=== PATIENT | male | born 1940 | race Caucasian/White ===

== ENCOUNTER 2020-08-07 12:47 | Outpatient (REF) | payer SELFPAY | END 2020-08-07 12:48 | disposition home or self-care (01) | LOC: HO.HAP 12:47 | PROVIDERS: PCP Internal Medicine; Referring Provider Internal Medicine; Visit Provider Internal Medicine | DX: Z13.89 Encounter for screening for other disorder (principal) ==

== ENCOUNTER 2021-01-18 12:01 | Outpatient (REF) | payer SELFPAY | END 2021-01-18 12:02 | disposition home or self-care (01) | LOC: HO.HAP 12:01 | PROVIDERS: Visit Provider Internal Medicine | DX: Z46.1 Encounter for fitting and adjustment of hearing aid (principal); H90.3 Sensorineural hearing loss, bilateral | CPT/HCPCS: 99499; V5299 ==

== ENCOUNTER 2021-05-17 08:28 | Outpatient (REF) | payer MEDICARE, SELFPAY ==
--- NOTE | 2021-05-20 13:23 | MHC.AU.AHA ---
Adult Audiological Evaluation Date of Visit: 05/17/21 Race Car Driver Used: Not Applicable Reason for Appointment: Audiologic re-evaluation due to increasing difficulty hearing and understanding speech. Previous Hearing Test Results: 03/30/2020 [facility] Bilateral mild dropping to profound mixed hearing loss with the left ear being poorer than the right in the high frequencies. Speech understanding, right ear - 76% at 80 dB HL left ear - 40% at 80 dB HL Medical History: Medical History: Prostate Cancer, High Blood Pressure, History of Transient Ischemic Attacks (TIA), High Cholesterol, Chronic Back Pain Medication List: Ezetimibe (Zetia), Atorvastatin, Bicalutamide, Clopidogrel (Plavix), Donepezil, Escitalopram, Flonase, Gabapentin, Lisinopril, Melatonin, Memantine, Omeprazole, Toviaz, Tramadol, Typenol, Vitamin C, Vitamin Shiv Mag Zinc, Vitamin D3 Hearing Instrument History- Right Ear: Cpht: Spry Model: Ritz & Wolf Camera & Image V 90-SP Serial Number: [id number] Battery Size: 13 Repair Warranty: 07/14/2019 Dispensed By: [facility] Date of Fittin04/24/2016 Hearing Instrument History- Left Ear: Cpht: Spry Model: Ritz & Wolf Camera & Image V 90-SP Serial Number: [id number] Battery Size: 13 Warranty: 07/14/2019 Dispensed By: [facility] Date of Fittin04/24/2016 Otoscopy: Right Ear: Unremarkable Left Ear: Unremarkable Tympanometry: Not performed at today's visit Hearing Evaluation: Transducer(s) Used: Circumaural Headphones, Bone Conduction Method: Conventional Audiometry Stimuli Used: Pure Tones Right Ear: Description of Hearing: Moderate dropping to profound mixed hearing loss. Left ear is 10-15 dB poorer than right at 1500, 2000, and 4000 Hz Left Ear: Description of Hearing: Mild dropping to profound mixed hearing loss. Speech Recognition Threshold (SRT): Method Used: Not performed at today's visit. Word Discrimination: Method: Recorded Lists Word Lists Used: NU-6 Right Ear: 50 dB HL at 90 dB HL Left Ear: 36% at 90 dB HL 40% at 95 dB HL Most Comfortable Level (MCL): Right Ear: 90 dB HL Left Ear: 90 dB HL Comparison: Compared to most recent evaluation: Overall thresholds at 3037-4346 Hz have decreased 5-15 dB for both ears with right ear speech discrimination ability decreasing compared to 2020 results. Recommendations: Audiological re-evaluation in one year. Will send a reminder card. Hearing aid maintenance performed today. Hearing aid(s) reprogrammed with updated test results. Please schedule an appointment if further hearing aid adjustments are needed. Diagnosis: Primary Diagnosis: H90.3 Bilateral Sensorineural Hearing Loss Services Performed: Comprehensive Audiological Evaluation (CPT 09826) Signature: Provider: Meredith Vargas, CCC-A
== END 2021-05-17 08:29 | disposition home or self-care (01) ==
LOC: HO.SH 08:28
PROVIDERS: Visit Provider Internal Medicine
DX: H90.3 Sensorineural hearing loss, bilateral (principal)
CPT/HCPCS: 92557

== ENCOUNTER 2021-06-10 09:24 | Outpatient (REF) | payer SELFPAY | END 2021-06-10 09:25 | disposition home or self-care (01) | LOC: HO.HAP 09:24 | PROVIDERS: Visit Provider Internal Medicine | DX: Z13.89 Encounter for screening for other disorder (principal) ==

== ENCOUNTER 2021-08-26 08:22 | Outpatient (REF) | payer SELFPAY | END 2021-08-26 08:23 | disposition home or self-care (01) | LOC: HO.HAP 08:22 | PROVIDERS: Visit Provider Internal Medicine | DX: Z13.89 Encounter for screening for other disorder (principal) ==

== ENCOUNTER 2021-09-26 11:15 | Outpatient (REF) | payer SELFPAY ==
--- NOTE | 2021-09-26 13:52 | MHC.AU.HAS ---
Hearing Aid Evaluation Date of Visit: 09/26/21 Historical Information: Description of Hearing: Asymmetric mild/moderate low frequency, dropping to profound high frequency sensorineural hearing loss with the left ear being poorer than the right. Current personal amplification information, if applicable: 2016 Binaural Phonak Jackeline V 90-SP BTE with standard earmolds Summary: Patient wants to obtain new hearing aids. Wants to try in-the-ear style due to problems with them falling out of his ears when wearing face mask. Hearing Aid Prescription: Based on the individual?s shared listening needs, communication environments, dexterity, desire for connectivity, and personal preferences, the following prescription for amplification has been made: Right ear: Check Cashier: Angstro Model: Evolv AI 2400 ITE-R Battery Size: Rechargeable Color: [place] Mesmerist: 130/70 Left ear: Left ear prescription to be same as Right Hearing Aid above: Check Cashier: Aliza Model: Evolv AI 2400 ITE-R Battery Size: Rechargeable Color: [place] Mesmerist: 130/70 Plan of Care: Patient wishes to purchase hearing aids as prescribed Action Taken/Action Needed: Earmold Impressions Taken Medical Clearance to be requested from PCP/ENT Hearing Instrument Fitting to be scheduled when materials arrive Primary Diagnosis: H90.3 Bilateral Sensorineural Hearing Loss Signature: Provider: Meredith Vargas, VU-A
--- NOTE | 2021-09-26 13:54 | MHC.AU.MED ---
Medical Clearance for Hearing Instrumentation Date: 09/26/21 Patient Name: Reynaldo Momin Date of : 1940 Primary Care Provider: Referring Provider: Primitivo Lee MD We have seen your patient on 09/26/21 and have determined that they are a candidate for amplification (See accompanying report). Specifically, they would benefit from: Hearing aid use in both ears There is a statute that addresses Medical Evaluation Requirements prior to fitting a patient with a hearing aid. According to [place] statute 265 CMR:6.03(1), (a) General. Except as provided in 265 CMR 6.03(1)(b), a inspector subassemblies shall not sell a hearing aid unless the prospective user has presented to the inspector subassemblies a written statement signed by a licensed physician that states that the patient's hearing loss has been medically evaluated and the patient may be considered a candidate for a hearing aid. The medical evaluation must have taken place within the preceding six months. Please note: Due to the [place] Statute referenced above, we cannot accept a signature other than that of a licensed physician. WHITE SIDEWALL TIRE BUFFER and PA signatures cannot be accepted. I am in agreement with the above recommendation. There is no medical contraindication for hearing instrumentation. Physician Signature Date Physician Name (Printed)
== END 2021-09-26 11:16 | disposition home or self-care (01) ==
LOC: HO.SH 11:15
PROVIDERS: Visit Provider Internal Medicine
DX: Z46.1 Encounter for fitting and adjustment of hearing aid (principal); H90.3 Sensorineural hearing loss, bilateral
CPT/HCPCS: 92591

== ENCOUNTER 2021-10-04 09:43 | Outpatient (REF) | payer SELFPAY | END 2021-10-04 09:44 | disposition home or self-care (01) | LOC: HO.HAP 09:43 | PROVIDERS: Visit Provider Internal Medicine | DX: Z46.1 Encounter for fitting and adjustment of hearing aid (principal); H90.3 Sensorineural hearing loss, bilateral | CPT/HCPCS: V5260; V5299 ==

== ENCOUNTER 2021-10-07 12:24 | Outpatient (REF) | payer SELFPAY | END 2021-10-07 12:25 | disposition home or self-care (01) | LOC: HO.HAP 12:24 | PROVIDERS: Visit Provider Internal Medicine | DX: Z13.89 Encounter for screening for other disorder (principal) ==

== ENCOUNTER 2021-10-11 12:12 | Outpatient (REF) | payer SELFPAY | END 2021-10-11 12:13 | disposition home or self-care (01) | LOC: HO.HAP 12:12 | PROVIDERS: Visit Provider Internal Medicine | DX: Z13.89 Encounter for screening for other disorder (principal) ==

== ENCOUNTER 2021-10-15 10:47 | Outpatient (REF) | payer SELFPAY | END 2021-10-15 10:48 | disposition home or self-care (01) | LOC: HO.HAP 10:47 | PROVIDERS: Visit Provider Internal Medicine | DX: Z13.89 Encounter for screening for other disorder (principal) ==

== ENCOUNTER 2021-10-28 12:25 | Outpatient (REF) | payer SELFPAY | END 2021-10-28 12:26 | disposition home or self-care (01) | LOC: HO.HAP 12:25 | PROVIDERS: Visit Provider Internal Medicine | DX: Z13.89 Encounter for screening for other disorder (principal) ==

== ENCOUNTER 2021-10-31 14:03 | Outpatient (REF) | payer SELFPAY ==
--- NOTE | 2021-10-31 14:14 | MHC.AU.HFU ---
Hearing Instrument Follow-Up- Binaural Date of Visit: 10/31/21 Right Ear: Technology Officer: Aliza Model: Evolv AI 2400 ITE-R Serial Number: [id number] Repair Warranty: 10/28/2024 Loss and Damage Warranty: 10/28/2024 Battery Size: Rechargeable Color: [place] Screen Printing Loader Unloader: 130/70 Type of Wax Guard: Hear Clear Dispensed By: [facility] Date of Fittin10/04/2021 Left Ear: Technology Officer: Aliza Model: Evolv AI 2400 ITE-R Serial Number: [id number] Repair Warranty: 10/28/2024 Loss and Damage Warranty: 10/28/2024 Battery Size: Rechargeable Color: [place] Screen Printing Loader Unloader: 130/70 Type of Wax Guard: Hear Clear Dispensed By: [facility] Date of Fittin10/04/2021 Follow-Up Summary: TRIAL PERIOD EXTENDED TO 01/28/2022 (reference number [id number])PER JOAN IN AUDIOLOGY Patient reports continued feedback from both aids and he consistently needs to increase the volume 2-3 steps since seen on 10/28/21. Spoke with Joan in [facility] regarding the problem. She recommends taking new as long as possible impression. Will make both aids have one pressure step back vent, increase length of canals, and increase aperture areas. Reference #[id number] Recommendations:Schedule appointment when in - PLAN TO RUN REAL EAR MEASUREMENTS AGAIN WITH REMAKE Diagnosis Code(s): Primary Diagnosis: H90.3 Bilateral Sensorineural Hearing Loss Signature: Provider: Meredith Vargas, [facility]
== END 2021-10-31 14:04 | disposition home or self-care (01) ==
LOC: HO.HAP 14:03
PROVIDERS: Visit Provider Internal Medicine
DX: Z13.89 Encounter for screening for other disorder (principal)

== ENCOUNTER 2021-11-14 10:52 | Outpatient (REF) | payer SELFPAY ==
--- NOTE | 2021-11-14 13:23 | MHC.AU.HFU ---
Hearing Instrument Follow-Up- Binaural Date of Visit: 11/14/21 Right Ear: Digital Color Press Operator: Aliza Model: Evolv AI 2400 ITE-R Serial Number: [id number] Repair Warranty: 10/28/2024 Battery Size: Rechargeable Color: [place] [facility] Nurse: 130/70 Type of Wax Guard: Hear Clear Dispensed By: [facility] Date of Fittin10/04/2021 Left Ear: Digital Color Press Operator: Aliza Model: Evolv AI 2400 ITE-R Serial Number: [id number] Repair Warranty: 10/28/2024 Battery Size: Rechargeable Color: [place] [facility] Nurse: 130/70 Type of Wax Guard: Hear Clear Dispensed By: [facility] Date of Fittin10/04/2021 Follow-Up Summary: Fit the right and left remake of ITE-R aids. Re-ran feedback test with significant feedback continuing. Blocked the pressure vents with no improvement and attempted re-programming. Only way to reduce feedback caused too much reduction in gain. Discussed options. RETURNED THE ITE-R AIDS FOR CREDIT Recommendations: Ordering binaural Aliza Evolv AI 2400 MEHREEN-R with canal lock ultra power integrated earmolds and #3 70 gain receivers. Rich Do. Faxed order to use scans on file. SCHEDULE NEW HEARING AID FITTING APPOINTMENT WHEN IN. Diagnosis Code(s): Primary Diagnosis: H90.3 Bilateral Sensorineural Hearing Loss Signature:Provider: Meredith Vargas, [facility]
== END 2021-11-14 10:53 | disposition home or self-care (01) ==
LOC: HO.HAP 10:52
PROVIDERS: Visit Provider Internal Medicine
DX: Z13.89 Encounter for screening for other disorder (principal)

== ENCOUNTER 2021-11-29 11:35 | Outpatient (REF) | payer SELFPAY ==
--- NOTE | 2021-12-02 07:35 | MHC.AU.HFA ---
Hearing Instrument Fitting- Adult- Binaural Date of Visit: 11/29/21 Hearing Instruments Dispensed: Right Ear:Media Assistant: Aliza Model: Evolv AI 2400 MEHREEN-R Serial Number: [id number] Repair Warranty: 02/18/2025 Loss and Damage Warranty: 02/18/2025 Battery Size: Rechargeable Color: Rich Silver Timber Skidder: #3 Type of Mold: Aliza Absolute Power Canal Lock #[id number] Type of Wax Guard: Hear Clear Left Ear: Media Assistant: Aliza Model: Evolv AI 2400 MEHREEN-R Serial Number: [id number] Repair Warranty: 02/18/2025 Loss and Damage Warranty: 02/18/2025 Battery Size: Rechargeable Color: [place] Silver Timber Skidder: #3 Type of Mold: Aliza Absolute Power Canal Lock #[id number] Type of Wax Guard: Hear Clear Summary of Fitting: Fit MEHREEN-R with custom AP canal lock molds due to significant feedback problems with ITE-R despite several remakes with new impressions. Ran feedback test and Real Ear measurements. Aids needed to be increased in gain quite a bit for patient comfort. Continues to get feedback, which was resolved when molds pushed into canal. Called Aliza, will change to skeleton lock molds. Patient wants to use the aids in the meantime. Aids already paid for 2021 Recommendations:Hearing instrument care and maintenance were discussed and practiced.See handouts for care/use instructions and battery information. Recommendations (Other): Schedule appointment when skeleton lock AP molds are received. NEED TO RETURN THE CANAL LOCK MOLDS FOR CREDIT AFTER FITTING. Diagnosis Code(s): Primary Diagnosis: H90.3 Bilateral Sensorineural Hearing Loss Services Performed:NDIAYE Non-Quantity Charges: Signature:Provider: Verna Vargas, [facility]
== END 2021-11-29 11:36 | disposition home or self-care (01) ==
LOC: HO.HAP 11:35
PROVIDERS: Visit Provider Internal Medicine
DX: Z13.89 Encounter for screening for other disorder (principal)

== ENCOUNTER 2021-12-13 12:12 | Outpatient (REF) | payer SELFPAY ==
--- NOTE | 2021-12-16 08:49 | MHC.AU.HFU ---
Hearing Instrument Follow-Up- Binaural Date of Visit: 12/13/21 Right Ear: Pressure Test Operator: Aliza Model: Evolv AI 2400 MEHREEN-R Serial Number: [id number] Repair Warranty: 02/18/2025 Loss and Damage Warranty: 02/18/2025 Battery Size: Rechargeable Color: Rich Silver Marking Machine Tender: #3 70 gain Type of Mold: Aliza Absolute Power Skeleton Lock #[id number] warranty 01/04/2024 Type of Wax Guard: Hear Clear Dispensed By: [facility] Date of Fittin10/04/2021 Left Ear: Pressure Test Operator: Aliza Model: Evolv AI 2400 MERHEEN-R Serial Number: [id number] Repair Warranty: 02/18/2025 Loss and Damage Warranty: 02/18/2025 Battery Size: Rechargeable Color: Rich Silver Marking Machine Tender: #3 70 gain Type of Mold: Aliza Absolute Power skeleton Lock #[id number] warranty 01/04/2024 Type of Wax Guard: Hear Clear Dispensed By: [facility] Date of Fittin10/04/2021 Follow-Up Summary: Fir the new skeleton AP integrated earmolds, re-ran feedback test with improved results. Used speech mapping to reduce MPO and loud at 1-3 kHz due to some feedback with improvement. Patient reports comfortable fit while in office and the little feedback only when molds are covered was not bothersome. Returned the canal lock AP receivers for credit. Recommendations: Hearing instrument follow-up or maintenance as needed. Please contact our clinic with any questions or concerns. Diagnosis Code(s):Primary Diagnosis: H90.3 Bilateral Sensorineural Hearing Loss Services Performed:NDIAYE Non-Quantity Charges: HANC: NonBillable Event Signature: Provider: Meredith Vargas, CCC-A
== END 2021-12-13 12:13 | disposition home or self-care (01) ==
LOC: HO.HAP 12:12
PROVIDERS: Visit Provider Internal Medicine
DX: Z13.89 Encounter for screening for other disorder (principal)

== ENCOUNTER 2021-12-20 10:25 | Outpatient (REF) | payer SELFPAY | END 2021-12-20 10:26 | disposition home or self-care (01) | LOC: HO.HAP 10:25 | PROVIDERS: Visit Provider Internal Medicine | DX: Z13.89 Encounter for screening for other disorder (principal) ==

== ENCOUNTER 2021-12-30 12:52 | Outpatient (REF) | payer SELFPAY | END 2021-12-30 12:53 | disposition home or self-care (01) | LOC: HO.HAP 12:52 | PROVIDERS: Visit Provider Internal Medicine | DX: Z13.89 Encounter for screening for other disorder (principal) ==

== ENCOUNTER 2022-01-01 14:40 | Outpatient (REF) | payer SELFPAY ==
--- NOTE | 2022-01-15 14:30 | MHC.AU.HFU ---
Hearing Instrument Follow-Up- Binaural Date of Visit: 01/15/22 Right Ear: Networking Engineer: The Farmery Model: Evolv AI 2400 MEHREEN-R Serial Number: [id number] Repair Warranty: 02/18/2025 Loss and Damage Warranty: 02/18/2025 Battery Size: Rechargeable Color: Rich Silver Customs Inspector: #3 70 gain Type of Mold: The Farmery Absolute Power Skeleton Lock #[id number] warranty 01/04/2024 Type of Wax Guard: Hear Clear Dispensed By: [facility] Date of Fittin10/04/2021 Left Ear: Networking Engineer: The Farmery Model: Evolv AI 2400 MEHREEN-R Serial Number: [id number] Repair Warranty: 02/18/2025 Loss and Damage Warranty: 02/18/2025 Battery Size: Rechargeable Color: Rich Silver Customs Inspector: #3 70 gain Type of Mold: The Farmery Absolute Power skeleton Lock #[id number] warranty 01/04/2024 Type of Wax Guard: Hear Clear Dispensed By: [facility] Date of Fittin10/04/2021 Follow-Up Summary: Received the remakes from [facility] [place] on 01/14/2022. Vents were not made as requested. Contacted patient to discuss how he was doing with the Phonak Jackeline P 90-UP Demo aids. He said he is doing well, with no feedback at all and he is hearing more clearly compared to any of the Aliza products tried. Sent the Future Fleetv AI 2400 MEHREEN-R aids and AP molds for credit. Ordered the Phonak Jackeline aids. WILL SCHEDULE HAF WITH PATIENT'S CURRENT MOLDS WHEN IN. NEED TO TAKE NEW IMPRESSIONS FOR NEW SOFT SKELETON STANDARD MOLDS AT HAF APPOINTMENT NEED TO REFUND PATIENT $700.00 PHONAK AIDS ARE WITH BATTERY Signature:Provider: Meredith Vargas, CCC-A
== END 2022-01-01 14:41 | disposition home or self-care (01) ==
LOC: HO.HAP 14:40
PROVIDERS: Visit Provider Internal Medicine
DX: Z13.89 Encounter for screening for other disorder (principal)

== ENCOUNTER 2022-01-24 11:28 | Outpatient (REF) | payer SELFPAY ==
--- NOTE | 2022-01-24 12:40 | MHC.AU.HFU ---
Hearing Instrument Follow-Up- Binaural Date of Visit: 01/24/22 Right Ear: Ammonia Nitrate Operator: Phonak Model: Jackeline P 90-UP Serial Number: [id number] Repair Warranty: 04/14/2025 Loss and Damage Warranty: 04/14/2025 Battery Size: 675 Color: Silver Pr[place] Tubing: #13T double bend Type of Mold: Skeleton Dispensed By: [facility] Date of Fittin01/24/2022 Left Ear: Ammonia Nitrate Operator: Phonak Model: Jackeline P 90-UP Serial Number: [id number] Repair Warranty: 04/14/2025 Loss and Damage Warranty: 04/14/2025 Battery Size: 675 Color: Silver [place] TubinT double bend Type of Mold: Skeleton Lock Dispensed By: [facility] Date of Fittin01/24/2022 Follow-Up Summary: Fit patient with new Jackeline UP BTE as he is not experiencing feedback with the DEMO aids. Picked up the last settings from DEMO aids he has been using and placed patient's old canal lock mold on the aids. Took new impressions of both ears without complication for new Skeleton molds. Submitted REFUND REQUEST for $700.00 as new aids are NOT rechargeable. Recommendations: Schedule 1/2 TO 1 hour appointment when earmolds are received. NEED TO RUN REAL EAR MEASUREMENTS AND FINE TUNING WITH NEW MOLDS. Diagnosis Code(s):Primary Diagnosis: H90.3 Bilateral Sensorineural Hearing Loss Signature:Provider: Meredith Vargas, [facility]
== END 2022-01-24 11:29 | disposition home or self-care (01) ==
LOC: HO.HAP 11:28
PROVIDERS: Visit Provider Internal Medicine
DX: Z13.89 Encounter for screening for other disorder (principal)

== ENCOUNTER 2022-02-19 12:17 | Outpatient (REF) | payer SELFPAY | END 2022-02-19 12:18 | disposition home or self-care (01) | LOC: HO.HAP 12:17 | PROVIDERS: Visit Provider Internal Medicine | DX: Z13.89 Encounter for screening for other disorder (principal) ==

== ENCOUNTER 2022-05-29 09:56 | Outpatient (REF) | payer SELFPAY | END 2022-05-29 09:57 | disposition home or self-care (01) | LOC: HO.HAP 09:56 | PROVIDERS: Visit Provider Internal Medicine | DX: Z13.89 Encounter for screening for other disorder (principal) ==

== ENCOUNTER 2022-07-07 09:21 | Outpatient (REF) | payer SELFPAY | END 2022-07-07 09:22 | disposition home or self-care (01) | LOC: HO.HAP 09:21 | PROVIDERS: Visit Provider Internal Medicine | DX: Z13.89 Encounter for screening for other disorder (principal) ==

== ENCOUNTER 2022-07-31 09:29 | Outpatient (REF) | payer SELFPAY | END 2022-07-31 09:30 | disposition home or self-care (01) | LOC: HO.HAP 09:29 | PROVIDERS: Visit Provider Internal Medicine | DX: Z13.89 Encounter for screening for other disorder (principal) ==

== ENCOUNTER 2022-08-11 15:56 | Outpatient (REF) | payer SELFPAY | END 2022-08-11 15:57 | disposition home or self-care (01) | LOC: HO.HAP 15:56 | PROVIDERS: Visit Provider Internal Medicine | DX: Z46.1 Encounter for fitting and adjustment of hearing aid (principal); H90.3 Sensorineural hearing loss, bilateral | CPT/HCPCS: V5264 ==

== ENCOUNTER 2022-09-23 15:32 | Outpatient (REF) | payer SELFPAY ==
--- NOTE | 2022-09-23 15:52 | MHC.AU.HFU ---
Hearing Instrument Follow-Up- Binaural Date of Visit: 09/23/22 Right Ear: Phonak Jackeline P 90-UP Silver Prado Serial #[id number] Repair Warranty: 04/14/2025 Loss and Damage Warranty: 04/14/2025 Service Plan: 01/24/2022 Battery Size: 675 Tubing: #13T double bend Type of Mold: [place] Skeleton Dispensed By: [facility] Date of Fittin01/24/2022 Left Ear: Phonak Jackeline P 90-UP Silver Prado Serial #[id number] Repair Warranty: 04/14/2025 Loss and Damage Warranty: 04/14/2025 Service Plan: 01/24/2022 Battery Size: 675 TubinT double bend Type of Mold: Microsonic Skeleton Lock Remake warranty 02/04/2023 Dispensed By: [facility] Date of Fittin01/24/2022 Follow-Up Summary: The patient was seen today for a right ear mold tubing change as the tubing was cracked. Tubing changed, ear mold and hearing aid cleaned. Listening check reveals clear sound. The patient requested I look in his right ear as he feels that ear is blocked. Otoscopy reveals non-occluding cerumen in the right ear canal. He is scheduled to see Dr. Aggarwal (ENT) on 10/01/22. He reported good sound and fit with the right aid. Additional follow-up as needed. No charge- in warranty. Diagnosis Code(s): Primary Diagnosis: H90.6 Mixed Hearing Loss, Bilateral Signature: Provider: Meredith Braswell, [facility]
== END 2022-09-23 15:33 | disposition home or self-care (01) ==
LOC: HO.HAP 15:32
PROVIDERS: Visit Provider Internal Medicine
DX: Z13.89 Encounter for screening for other disorder (principal)

== ENCOUNTER 2023-01-12 12:48 | Outpatient (REF) | payer SELFPAY | END 2023-01-12 12:49 | disposition home or self-care (01) | LOC: HO.HAP 12:48 | PROVIDERS: Visit Provider Internal Medicine | DX: Z13.89 Encounter for screening for other disorder (principal) ==

== ENCOUNTER 2023-01-23 14:45 | Outpatient (REF) | payer SELFPAY | END 2023-01-23 14:46 | disposition home or self-care (01) | LOC: HO.HAP 14:45 | PROVIDERS: Visit Provider Internal Medicine | DX: Z13.89 Encounter for screening for other disorder (principal) ==

== ENCOUNTER 2023-05-12 14:35 | Outpatient (REF) | payer SELFPAY ==
--- NOTE | 2023-05-12 15:18 | MHC.AU.HA3 ---
Hearing Instrument Follow-Up- Binaural Date of Visit: 05/12/23 Right Ear: Geronimo, Model, Color, Serial Number: Andrea Viveros P 90-UP Silver Prado Serial #[id number] Hot Patcher Repair Warranty: 04/14/2025 Hot Patcher Loss and Damage Warranty: 04/14/2025 [facility] Service Plan: 01/24/2025 Battery Size: 675 Earmold/Dome/CShell/SlimTip:[place] Skeleton Dispensed By: [facility] Date of Fittin01/24/2022 Left Ear: Geronimo, Model, Color, Serial Number: Andrea Viveros P 90-UP Silver Prado Serial #[id number] Hot Patcher Repair Warranty: 04/14/2025 Hot Patcher Loss and Damage Warranty: 04/14/2025 [facility] Service Plan: 01/24/2025 Battery Size: 675 Earmold/Dome/CShell/SlimTip: Microsonic Skeleton Lock Remake warranty 02/04/2023 Dispensed By: [facility] Date of Fittin01/24/2022 Follow-Up Summary: Reynaldo reported that his left hearing aid has been intermittent. It only seems to work when he pushes on the ear mold. Upon inspection, moisture build up noted in tubing. Cleaned both hearing aids and ear molds. Ran through dehumidifier. Replaced both tubes. A listening check demonstrated that the hearing aids are in good working order. Reynaldo noticed an immediate improvement in sound quality following the tubing change. He also requested that the left hearing aid be turned down as he often gets feedback while watching television with his headphones. Explained decreasing volume will impact overall/everyday sound quality. Decreased highest frequencies slightly. Reynaldo did not notice significant impact on sound quality in office and will trial new settings at home with his headphones to determine the effect on the feedback. If feedback persists with headphone use, may need to consider adding an additional manual program for use with headphones that decreases overall volume more so than everyday program. Recommendations: Hearing instrument follow-up or maintenance as needed. Please contact our clinic with any questions or concerns. Patient will call if problems persist. Diagnosis Code(s): Primary Diagnosis: H90.3 Bilateral Sensorineural Hearing Loss Signature: Provider: Nunu Davis, [facility]
== END 2023-05-12 14:36 | disposition home or self-care (01) ==
LOC: HO.HAP 14:35
PROVIDERS: Visit Provider Internal Medicine
DX: Z13.89 Encounter for screening for other disorder (principal)

== ENCOUNTER 2023-09-14 07:48 | Outpatient (REF) | payer SELFPAY | END 2023-09-14 07:49 | disposition home or self-care (01) | LOC: HO.HAP 07:48 | PROVIDERS: Visit Provider Internal Medicine | DX: Z13.89 Encounter for screening for other disorder (principal) ==

== ENCOUNTER 2023-10-28 12:51 | Outpatient (AMB) | payer MEDICARE, OTHER, SELFPAY ==
--- NOTE | 2023-10-28 13:03 | A.SPINEOV_ITS ---
Intake Intake Visit Reasons: lower back pain Intake Note: Mr. Momin is here today c/o low back pain. Purchase Analyst Required: No Allergies No Known Allergies Allergy (Verified 10/28/23 13:03) Assessment & Plan Assessment & Plan (1) Scoliosis of lumbar region due to degenerative disease of spine in adult: Code(s): M41.56 - Other secondary scoliosis, lumbar region Plan Dear colleague Thank you for referring Reynaldo Momin to the office today with a chief complaint of right-sided back pain radiating to his knee. HPI: This 83-year-old male is suffering from pain radiating from his right side of the back to his groin and knee. The pain has been present for 10-15 years and has slowly progressed over the years. Takes tramadol 8 tablets a day to suppress the pain. The left side is unaffected. He saw Dr. Chowdary in the past that gave him an injection. No surgery was offered. The following conservative treatment options were tried without success antiinflammatories, tylenol, physician guided home exercise plan, and physical therapy cortisone shots. PMH: TIA many years ago hypercholesterolemia, hypertension, GERD, prostate cancer Medications: Atorvastatin, Plavix, dullness benzyl, duloxetine, Zetia, Flonase, gabapentin, lisinopril, omeprazole, tramadol, Tylenol, multivitamins Allergies: NKDA Social history: . Retired Physical Exam: Pleasant male. He walks in a flexed position. On inspection there is a degenerative scoliosis with a curvature towards the right side. No neurological deficits Radiological Studies: MRI of the lumbar spine done at [facility] shows a lumbar degenerative scoliosis that has progressed compared to an MRI of 2019. The degenerative scoliosis causes right L4 and L5 nerve root compression. Impression/Plan: This 83-year-old male is most likely suffering from a right L4 radiculopathy. I will refer him for a right L4 diagnostic block to confirm the diagnosis. If this comes back positive then I will offer him an L4 foraminotomy and L3-4 instrumentation unilateral. He will follow up with me after the injection is done. Thank you for allowing me to participate in your patients care. total time spent was 50 minutes in counseling ,coordination of plan, personal review of imaging, surgical decision making and subsequent plan Mac Newman MD, PhD Spine Fellowship Trained Neurosurgeon Director, [facility] Orders: Orders XR lumbar spine 4V min Today M41.56 - Other secondary scoliosis, lumbar region Referrals Pain Management Referral M41.56 - Other secondary scoliosis, lumbar region Coding Level of Care Code New Pt Level 4 (34604) Diagnoses Scoliosis of lumbar region due to degenerative disease of spine in adult M41.56
== END 2023-10-28 14:10 | disposition home or self-care (01) ==
PROVIDERS: PCP Internal Medicine; Visit Provider Neurological Surgery
DX: M41.56 Other secondary scoliosis, lumbar region (principal)
CPT/HCPCS: 99204

== ENCOUNTER 2023-10-28 12:51 | Outpatient (REF) | payer MEDICARE, OTHER, SELFPAY ==
--- NOTE | ~2023-10-28 | XR_ITS ---
EXAMINATION: XR LUMBOSACRAL SPINE WITH LATERAL FLEXION AND EXTENSION CLINICAL INFORMATION: Other secondary scoliosis, lumbar region COMPARISON: None available. TECHNIQUE: AP, lateral view and lateral flexion and extension views of the lumbar spine. FINDINGS: The bones are mildly demineralized. There is curve of the lumbar spine, convex left. There are 5 nonrib-bearing lumbar-type vertebral bodies. There is multilevel degenerative facet joint disease. There is marked anterior marginal osteophyte formation at L1-L2 and off the superior endplate of L1. There is retrolisthesis of L2 with respect to L3 and L4 with respect to L5. Patient demonstrates limited flexion and extension. There is no change in alignment with flexion and extension. There is calcification of the abdominal aorta without evidence of aneurysmal dilatation. XR/XR lumbar spine 4V min IMPRESSION: 1. Curvature of the lumbar spine, convex left. 2. 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 3. Multilevel retrolisthesis. 4. No change in alignment with flexion and extension.
== END 2023-10-28 12:52 | disposition home or self-care (01) ==
LOC: HO.HOSX 12:51
PROVIDERS: PCP Internal Medicine; Visit Provider Neurological Surgery
DX: M51.36 Other intervertebral disc degeneration, lumbar region (principal); M41.56 Other secondary scoliosis, lumbar region
CPT/HCPCS: 72110; 99202

== ENCOUNTER 2023-11-04 10:17 | Outpatient (AMB) | payer MEDICARE, OTHER, SELFPAY ==
--- NOTE | 2023-11-04 10:18 | A.OFFVIS_ITS ---
Intake Vital Signs 11/04/23 10:23 Height 5 ft 6 in Weight 172 lb BMI 27.8 BP 130/70 Blood Pressure Location Lt brachial Position Sitting Respiration 12 Pulse 80 Pulse Source Pulse Oximeter Intake Visit Reasons: scoliosis, lumbar region Allergies No Known Allergies Allergy (Verified 11/04/23 10:25) Medication List - Last Reconciled 11/04/23 by Angelika Rob LPN atorvastatin 80 mg PO DAILY clopidogrel mg PO diphth,pertus(acell),tetanus (Boostrix Tdap) mL IM donepezil 10 mg PO DAILY duloxetine 120 mg PO DAILY ezetimibe mg PO fesoterodine ER 8 mg PO DAILY gabapentin mg PO lisinopril mg PO omeprazole 20 mg PO DAILY HPI scoliosis, lumbar region HPI Details 83-year-old male who presents today to t he office for lumbar scoliosis He has been referred by Dr. Newman for consideration of the right L4 diagnostic nerve root block. He complains of radiating pain from the right side of the groin to the knee, which has been going on for 10?15 years and has progressed over the years. He takes eight tramadol tablets a day to help with the pain and has also tried anti-inflammatory drugs, Tylenol, a physician-guided home exercise plan, and PT. He had seen Dr. Chowdary, who had given injections in the past. His pain is described as 8 in the right lower back and 9/10 in intensity, and it improved with tramadol. It is a constant, sharp stabbing sensation. He has exhausted physical therapy, chiropractic manipulation, and transcutaneous electrical nerve stimulation. The Oswestry disability index score is 22. Physical Exam Vital Signs: Last Vital Signs Pulse 80 11/04/23 10:23 Resp 12 11/04/23 10:23 BP 130/70 11/04/23 10:23 BMI result Body Mass Index 27.8 On exam today: Appears afebrile. Alert and oriented. Mood and affect appropriate. Follows and participates in conversation appropriately. Respiratory effort is unlabored. Able to transition from sit to stand unassisted. Ambulates with bilaterally normal heel strike and toe off. Able to stand and walk on toes and heels. Results Reviewed Results Reviewed: XR LUMBOSACRAL SPINE WITH LATERAL FLEXION AND EXTENSION 10/28/23 FINDINGS: The bones are mildly demineralized. There is curve of the lumbar spine, convex left. There are 5 nonrib-bearing lumbar-type vertebral bodies. There is multilevel degenerative facet joint disease. There is marked anterior marginal osteophyte formation at L1-L2 and off the superior endplate of L1. There is retrolisthesis of L2 with respect to L3 and L4 with respect to L5. Patient demonstrates limited flexion and extension. There is no change in alignment with flexion and extension. There is calcification of the abdominal aorta without evidence of aneurysmal dilatation. IMPRESSION: 1. Curvature of the lumbar spine, convex left. 2. 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 3. Multilevel retrolisthesis. 4. No change in alignment with flexion and extension. Assessment & Plan Assessment & Plan (1) Lumbar radiculopathy: Code(s): M54.16 - Radiculopathy, lumbar region Plan We will schedule him for right L4 diagnostic nerve root block. Discussed the risks and benefits of the procedure with the patient in detail. All questions were answered. The patient is on board with the plan. I advised the patient to hold Plavix for 7 days prior to the injection. Justification for interventional therapy: ? Patient with average pain > 6/10 ? Patient has exhausted conservative therapy ? Patient unable to tolerate physical therapy due to pain Scribed for Dr. Beck by Angeles Choe medical data entry clerk, on 11/04/2023. I, Dr. Beck, have personally reviewed and agree with the information entered by the scribe. Coding Level of Care Code New Pt Level 4 (91548) Diagnoses Lumbar radiculopathy M54.16
[2023-11-04 10:23] VITALS: BP 130/70; PULSE 80; RESP 12; BMI 27.8
== END 2023-11-04 11:09 | disposition home or self-care (01) ==
LOC: HO.PMC 10:17
PROVIDERS: PCP Internal Medicine; Visit Provider Internal Medicine
DX: M54.16 Radiculopathy, lumbar region (principal)
CPT/HCPCS: 99204

== ENCOUNTER → 2023-11-04 10:17 | Outpatient (BNVA) | payer MEDICARE, OTHER, SELFPAY | PROVIDERS: PCP Internal Medicine; Visit Provider Internal Medicine | DX: M54.16 Radiculopathy, lumbar region (principal); R10.30 Lower abdominal pain, unspecified; M25.561 Pain in right knee; Z79.899 Other long term (current) drug therapy; Z79.891 Long term (current) use of opiate analgesic | CPT/HCPCS: 99202 ==

== ENCOUNTER 2023-11-19 07:30 | Outpatient (REF) | payer MEDICARE, OTHER, SELFPAY | END 2023-11-19 07:31 | disposition home or self-care (01) | LOC: CF 07:30 | PROVIDERS: Visit Provider Internal Medicine | DX: Z13.89 Encounter for screening for other disorder (principal) ==

== ENCOUNTER 2023-11-26 06:37 | Outpatient (REF) | payer MEDICARE, OTHER, SELFPAY ==
--- NOTE | ~2023-11-26 | FL_ITS ---
EXAMINATION: XR FLUOROSCOPY WITH IMAGES CLINICAL INFORMATION: Right lumbar pain injection. COMPARISON: Lumbar spine radiographs dated 10/28/2023. TECHNIQUE: Fluoroscopy Supervised By: Dr. Jayden Beck. Fluoroscopy Time: 0.5 minutes. Cumulative Dose: 9.28 mGy. DAP: 0.0840 Gycm2. Images: 4. FINDINGS: The submitted images show an injection needle and injected contrast in the vicinity of the right L4-L5 neural foramen. FL/FL guidance in treatment room IMPRESSION: Intraoperative fluoroscopic guidance is provided during right lumbar pain injection. Please see the patient's Operative Report for full procedural details.
== END 2023-11-26 06:38 | disposition home or self-care (01) ==
LOC: CF 06:37
PROVIDERS: Visit Provider Internal Medicine
DX: M54.16 Radiculopathy, lumbar region (principal)
CPT/HCPCS: 64483; Q9967

== ENCOUNTER 2023-11-26 11:08 | Outpatient (AMB) | payer MEDICARE, OTHER, SELFPAY ==
[2023-11-26 11:19] VITALS: BP 128/66; PULSE 68; RESP 18; O2SAT 97; BMI 27.8
--- NOTE | 2023-11-26 11:19 | A.OFFVIS_ITS ---
Intake Vital Signs 11/26/23 11:19 11/26/23 11:19 11/26/23 12:52 Height 5 ft 6 in 5 ft 6 in Weight 172 lb 172 lb BMI 27.8 27.8 BP 128/66 134/66 Blood Pressure Location Lt brachial Lt brachial Position Sitting Sitting Respiration 18 18 Pulse 68 78 Pulse Source Pulse Oximeter Pulse Oximeter Pulse Oximetry (%) 97 96 Oxygen Delivery Method Room Air Room Air Comment Pre-Op Post-Op Intake Visit Reasons: Right Dx L4 SNRB Allergies No Known Allergies Allergy (Verified 11/04/23 10:25) HPI Right Dx L4 SNRB HPI Details Patient presents for scheduled procedure. Denies any recent cough, cold, infection, fever or other significant changes in medical history since last office visit. Physical Exam Vital Signs: Last Vital Signs Pulse 78 11/26/23 12:52 Resp 18 11/26/23 12:52 BP 134/66 11/26/23 12:52 Pulse Ox 96 11/26/23 12:52 Oxygen Delivery Method Room Air 11/26/23 12:52 BMI result Body Mass Index 27.8 Office Procedures Details: Selective nerve root block, right L4 After obtaining written consent, pre-procedure blood pressure and heart rate were stable and recorded in the nursing record. The patient was placed in the prone position on the fluoroscopy table. The lumbosacral area was prepped with chloraprep, allowed to dry and draped in sterile fashion. Using fluoroscopy, the skin overlying our target was anesthetized with 0.5% lidocaine. A 22 gauge 3.5 inch spinal needle was advanced to the safe triangle in the upper pole of the right L4 foramen. No paresthesias were elicited with needle placement and aspiration was negative for blood and CSF. Correct needle position was confirmed with approximately 1 ml contrast dye (Omnipaque 180 mg/ml) injected under real-time fluoroscopy. No evidence of vascular or intrathecal uptake was seen and there was both epidural and perip heral spread of the contrast agent. 0.75 ml containing 1% lidocaine was slowly injected. The needle was flushed and removed. The skin was cleansed and a sterile bandages were applied. The patient tolerated the procedure well and no complications were encountered. Following the procedure the patient's vital signs were stable. The patient was discharged home in good condition with post-procedural instructions. Time Out: Immediately prior to the procedure, the following was verbally confirmed that there is a signed consent form and that the correct patient, planned procedure, site and side are consistent with documentation and that necessary equipment and/or blood products are available prior to the start of the case. Complications: none EBL: <5 cc 65137 - Lumbar/Sacral Procedure code (CPT) selection complete Assessment & Plan Assessment & Plan (1) Lumbar radiculopathy: Code(s): M54.16 - Radiculopathy, lumbar region Plan Patient is status post right L4 selective nerve root block. Patient tolerated procedure well and was discharged home in stable condition with discharge instructions. All questions were answered. We will follow-up via telephone or in clinic to assess response to therapy. A follow-up appointment was made during today's visit. Coding Level of Care Code Procedure Only Diagnoses Lumbar radiculopathy M54.16 CPT Codes Transforaminal Epidural Steroid Inj - TESI 3: 40662 - Lumbar/Sacral ([id number])
[2023-11-26 12:52] VITALS: BP 134/66; PULSE 78; RESP 18; O2SAT 96
== END 2023-11-26 12:53 | disposition home or self-care (01) ==
LOC: HO.PMCPRC 11:08
PROVIDERS: PCP Internal Medicine; Visit Provider Internal Medicine
DX: M54.16 Radiculopathy, lumbar region (principal)
CPT/HCPCS: 64483

== ENCOUNTER 2023-11-30 09:12 | Outpatient (AMB) | payer MEDICARE, OTHER, SELFPAY ==
--- NOTE | 2023-11-30 09:08 | MHC.OFFVIS ---
Intake Intake Visit Reasons: s/p right Dx L4 SNRB Allergies No Known Allergies Allergy (Verified 11/04/23 10:25) HPI s/p right Dx L4 SNRB HPI Details 83-year-old male who presents today via telehealth for a status post right diagnostic L4 SNRB. The patient reports 100% relief of his right sided pain following the procedure. His right-sided pain has still not come back 5 days after a 0.5 cc lidocaine 1% injection. The day of the procedure, he was completely pain-free and did not take any tramadol. Interestingly, he reports a new pain in the left hip and leg, which is bothersome. His left-sided pain is the same as it was on the right side. It is severe in nature and radiates down from the hip to the left knee. He denies having had this pain on the left side in the past. Past procedures 11/26/23: Selective nerve root block, right L4: 100% relief, ongoing. Review of Systems Const All systems reviewed & are unremarkable except as noted in HPI and below Results Reviewed Results Reviewed: No imaging is available for review. Assessment & Plan Assessment & Plan (1) Lumbar radiculopathy: Code(s): M54.16 - Radiculopathy, lumbar region (2) Scoliosis of lumbar region due to degenerative disease of spine in adult: Code(s): M41.56 - Other secondary scoliosis, lumbar region Plan The patient had 100% diagnostic response to the right L4 selective nerve root block. Unfortunately he now has a new left-sided pain that he did not have before. We will schedule him for Left L3 selective nerve root block. Discussed the risks and benefits of the procedure with the patient in detail. All questions were answered. The patient is on board with the plan. I advised the patient to hold Plavix for 7 days prior to the injection. Based on the results of the left-sided diagnostic injection, he will follow-up with spine surgery to reassess his surgical options. Justification for interventional therapy: ? Patient with average pain > 6/10 ? Patient has exhausted conservative therapy ? Patient unable to tolerate physical therapy due to pain . Patient has a good understanding of their pain condition and has appropriate mental and social support Scribed for Dr. Beck by Jose Guadalupe Gerber, medical specialist, on 11/30/2023. I, Dr. Beck, have personally reviewed and agree with the information entered by the scribe. Telehealth Telehealth Location of provider rendering services: practice address Location of patient: address on file Patient Identification confirmed using: Name, : Yes Telehealth method: voice only Patient verbally consented to treatment: Yes Patient verbally consented to billing insurance company: Yes Patient informed of any privacy concerns related to visit: Yes Minutes spent on Phone/Video with Pt.: 6 Coding Level of Care Code Tele Est Pt Level 3 (27592) Diagnoses Lumbar radiculopathy M54.16 Scoliosis of lumbar region due to degenerative disease of spine in adult M41.56
== END 2023-11-30 09:13 | disposition home or self-care (01) ==
LOC: HO.PMC 09:12
PROVIDERS: PCP Internal Medicine; Visit Provider Internal Medicine
DX: M54.16 Radiculopathy, lumbar region (principal); M41.56 Other secondary scoliosis, lumbar region
CPT/HCPCS: 99441

== ENCOUNTER → 2023-11-30 09:12 | Outpatient (BNVA) | payer MEDICARE, OTHER, SELFPAY | PROVIDERS: PCP Internal Medicine; Visit Provider Internal Medicine ==

== ENCOUNTER 2023-12-31 06:21 | Outpatient (REF) | payer MEDICARE, OTHER, SELFPAY ==
--- NOTE | ~2023-12-31 | FL_ITS ---
EXAMINATION: XR FLUOROSCOPY WITH IMAGES CLINICAL INFORMATION: Scoliosis. COMPARISON: None available. TECHNIQUE: Fluoroscopy Supervised By: Dr. Jayden Beck. Fluoroscopy Time: 0.2 minutes. Cumulative Dose: 3.21 mGy. DAP: 0.0174 Gycm2. Images: 2. FINDINGS: Intraoperative fluoroscopy and spot films were performed during a procedure in the OR. [place] are seen overlying the spine with contrast media around the tips. Level cannot be ascertained from the included radiographs. Please see Dr. Jayden Beck's report for complete details. FL/FL guidance in treatment room IMPRESSION: Intraoperative fluoroscopy and spot films were obtained. Please see Dr. Jayden Beck's report for complete details.
== END 2023-12-31 06:22 | disposition home or self-care (01) ==
LOC: CF 06:21
PROVIDERS: Visit Provider Internal Medicine
DX: M54.16 Radiculopathy, lumbar region (principal)
CPT/HCPCS: 64483; Q9967

== ENCOUNTER 2023-12-31 12:39 | Outpatient (AMB) | payer MEDICARE, OTHER, SELFPAY ==
[2023-12-31 12:43] VITALS: BP 122/68; PULSE 60; RESP 16; O2SAT 98; BMI 27.8
--- NOTE | 2023-12-31 12:43 | MHC.OFFVIS ---
Vital Signs 12/31/23 12:43 12/31/23 13:30 Height 5 ft 6 in Weight 172 lb BMI 27.8 BP 122/68 128/64 Blood Pressure Location Lt brachial Lt brachial Position Sitting Sitting Respiration 16 Pulse 60 76 Pulse Source Pulse Oximeter Pulse Oximeter Pulse Oximetry (%) 98 97 Oxygen Delivery Method Room Air Room Air Comment Pre-Op Post-Op Intake Visit Reasons: Left L3 selective nerve root block Allergies No Known Allergies Allergy (Verified 11/04/23 10:25) HPI HPI Left L3 selective nerve root block: Details: Patient presents for scheduled procedure. Denies any recent cough, cold, infection, fever or other significant changes in medical history since last office visit. Physical Exam Vital Signs: Last Vital Signs Pulse 76 12/31/23 13:30 Resp 16 12/31/23 12:43 BP 128/64 12/31/23 13:30 Pulse Ox 97 12/31/23 13:30 Oxygen Delivery Method Room Air 12/31/23 13:30 BMI result Body Mass Index 27.8 Office Procedures Details: Selective nerve root block, left L3 After obtaining written consent, pre-procedure blood pressure and heart rate were stable and recorded in the nursing record. The patient was placed in the prone position on the fluoroscopy table. The lumbosacral area was prepped with chloraprep, allowed to dry and draped in sterile fashion. Using fluoroscopy, the skin overlying our target was anesthetized with 0.5% lidocaine. A 22 gauge 3.5 inch spinal needle was advanced to the safe triangle in the upper pole of the left L3 foramen. No paresthesias were elicited with needle placement and aspiration was negative for blood and CSF. Correct needle position was confirmed with approximately 1 ml contrast dye (Omnipaque 180 mg/ml) injected under real-time fluoroscopy. No evidence of vascular or intrathecal uptake was seen and there was both epidural and peripheral spread of the contrast agent. 0.75 ml containing 1% lidocaine was slowly injected. The needle was flushed and removed. The skin was cleansed and a sterile bandages were applied. The patient tolerated the procedure well and no complications were encountered. Following the procedure the patient's vital signs were stable. The patient was discharged home in good condition with post-procedural instructions. Time Out: Immediately prior to the procedure, the following was verbally confirmed that there is a signed consent form and that the correct patient, planned procedure, site and side are consistent with documentation and that necessary equipment and/or blood products are available prior to the start of the case. Complications: none EBL: <5 cc 42443 - Lumbar/Sacral Procedure code (CPT) selection complete Assessment & Plan Assessment & Plan (1) Lumbar radiculopathy: Code(s): M54.16 - Radiculopathy, lumbar region Category: Medical Plan Patient is status post diagnostic left L3 selective nerve root block. Patient tolerated procedure well and was discharged home in stable condition with discharge instructions. All questions were answered. We will follow-up via telephone or in clinic to assess response to therapy. A follow-up appointment was made during today's visit. Orders: Orders FL guidance in treatment room Today M41.56 - Other secondary scoliosis, lumbar region Coding Level of Care Code Procedure Only Diagnoses Lumbar radiculopathy M54.16 CPT Codes Transforaminal Epidural Steroid Inj - TESI 3: 35939 - Lumbar/Sacral ([id number])
[2023-12-31 13:30] VITALS: BP 128/64; PULSE 76; O2SAT 97
== END 2023-12-31 13:27 | disposition home or self-care (01) ==
LOC: HO.PMCPRC 12:39
PROVIDERS: PCP Internal Medicine; Visit Provider Internal Medicine
DX: M54.16 Radiculopathy, lumbar region (principal)
CPT/HCPCS: 64483

== ENCOUNTER → 2024-01-04 11:38 | Outpatient (BNVA) | payer MEDICARE, OTHER, SELFPAY | PROVIDERS: PCP Internal Medicine; Visit Provider Internal Medicine | DX: M47.816 Spondylosis without myelopathy or radiculopathy, lumbar region (principal); M41.56 Other secondary scoliosis, lumbar region | CPT/HCPCS: 99212 ==

== ENCOUNTER 2024-01-04 11:39 | Outpatient (AMB) | payer MEDICARE, OTHER, SELFPAY ==
[2024-01-04 11:40] VITALS: BP 130/62; PULSE 66; RESP 14; O2SAT 96; BMI 27.4
--- NOTE | 2024-01-04 11:40 | A.OFFVIS_ITS ---
Vital Signs 01/04/24 11:40 Height 5 ft 6 in Weight 170 lb BMI 27.4 BP 130/62 Blood Pressure Location Lt brachial Position Sitting Respiration 14 Pulse 66 Pulse Source Pulse Oximeter Pulse Oximetry (%) 96 Oxygen Delivery Method Room Air Intake Visit Reasons: s/p left L3 SNRB Allergies No Known Allergies Allergy (Verified 01/04/24 11:42) Medication List - Last Reconciled 01/04/24 by Angelika Rob LPN atorvastatin 80 mg PO DAILY clopidogrel mg PO diphth,pertus(acell),tetanus (Boostrix Tdap) mL IM donepezil 10 mg PO DAILY duloxetine 120 mg PO DAILY ezetimibe mg PO fesoterodine ER 8 mg PO DAILY gabapentin mg PO lisinopril mg PO omeprazole 20 mg PO DAILY HPI HPI s/p left L3 SNRB: Details: 83-year-old male who presents today on tele health visit for a status post left L3 SNRB. The patient reports resolution of his left sided pain following the procedure. He states that his pain is more localized in the middle now. He had a good response from the first nerve block on the right side. He denies any radiating pain down his left or right leg at this time. He had multiple rounds of cortisone injections every six months in the past with loss of efficacy, prompting referral to spine surgery earlier this year. Past procedures 12/31/23: Selective nerve root block, left L3: 100% relief. 11/26/23: Selective nerve root block, right L4: 100% relief, ongoing 6 weeks out. Review of Systems Const All systems reviewed & are unremarkable except as noted in HPI and below Physical Exam Vital Signs: Last Vital Signs Pulse 66 01/04/24 11:40 Resp 14 01/04/24 11:40 BP 130/62 01/04/24 11:40 Pulse Ox 96 01/04/24 11:40 Oxygen Delivery Method Room Air 01/04/24 11:40 BMI result Body Mass Index 27.4 On exam today: Appears afebrile. Alert and oriented. Mood and affect appropriate. Follows and participates in conversation appropriately. Respiratory effort is unlabored. Able to transition from sit to stand unassisted. Ambulates with bilaterally normal heel strike and toe off with the help of a cane. Lumbar extension and facet loading reproduces lower back pain. Results Reviewed Results Reviewed: No imaging is available for review. Assessment & Plan Assessment & Plan (1) Lumbar spondylosis: Code(s): M47.816 - Spondylosis without myelopathy or radiculopathy, lumbar region Category: Medical (2) Scoliosis of lumbar region due to degenerative disease of spine in adult: Code(s): M41.56 - Other secondary scoliosis, lumbar region Category: Medical Plan 83-year-old male with scoliosis of the thoracolumbar spine and multilevel degenerative disc and joint disease of the lumbar spine, who was referred to us for right lumbar radiculopathy for a diagnostic right L4 injection. He had complete relief of right leg symptoms following the diagnostic injection, which he continues to have to this day. He then had left leg symptoms, for which I did a left L3 selective nerve root block with local anesthetic only and that has also resulted in resolution of his left lower extremity symptoms. His symptoms now are primarily axial in nature that are worse with lumbar extension. His MRI shows multilevel degenerative facet joint disease. At this time his symptoms appear to be secondary to lumbar spondylosis. I offered to treat his lumbar facet pain with potential diagnostic medial branch blocks followed by radiofrequency ablation of the medial branch nerves or refer him back to Dr. Newman for continued consideration of surgical intervention. Given the fact that he does not have any radicular symptoms at this time, he feels that it would be prudent to delay surgical intervention at this time. I do agree with that impression. I told him that I will touch base with Dr. Newman, and if he is in agreement with the plan, we can undertake interventional pain management of the lumbar facet joints as a next step in his management as opposed to returning for surgical decompression. Patient is in agreement with the plan. Justification for interventional therapy: * Patient with average pain > 6/10 * Patient has exhausted conservative therapy including physical therapy and oral medications. * HARVINDER score is 34% indicating moderate disability Scribed for Dr. Beck by Jose Guadalupe Gerber, biomedical engineering professor, on 01/04/2024. I, Dr. Beck, have personally reviewed and agree with the information entered by the scribe. Coding Level of Care Code Est Pt Level 4 (05745) Diagnoses Lumbar spondylosis M47.816 Scoliosis of lumbar region due to degenerative disease of spine in adult M41.56
== END 2024-01-04 12:04 | disposition home or self-care (01) ==
PROVIDERS: PCP Internal Medicine; Visit Provider Internal Medicine
DX: M47.816 Spondylosis without myelopathy or radiculopathy, lumbar region (principal); M41.56 Other secondary scoliosis, lumbar region
CPT/HCPCS: 99214

== ENCOUNTER 2024-01-29 14:32 | Outpatient (AMB) | payer MEDICARE, OTHER, SELFPAY ==
--- NOTE | 2024-01-29 14:32 | A.SPINEOV_ITS ---
Intake Visit Reasons: F/u after injection Intake Note: Mr. Momin is here to F/u after injections. Supervisor [employer] Required: No Allergies No Known Allergies Allergy (Verified 01/04/24 11:42) Assessment & Plan Assessment & Plan (1) Scoliosis of lumbar region due to degenerative disease of spine in adult: Code(s): M41.56 - Other secondary scoliosis, lumbar region Category: Medical Plan Dear colleague, On 01/29/2024, I saw for follow-up Reynaldo Momin. I originally saw him from pain radiating from the back to his right knee. I diagnosed him with a right L4 radiculopathy and confirmed this with a diagnostic L4 block. In the meantime he also had a left L3 nerve block. Currently is main symptom is right-sided back pain without radiculopathy. I am not convinced that an L4 foraminotomy with unilateral instrumentation is going to alleviate that symptom. I discussed this with the patient and his and I decided to refer him back to for right facet blocks. He will return to my office if the radiculopathy returns. I spent 20 minutes in his consult to review imaging and discussing plan of care. Mac Newman MD, PhD Spine Fellowship Trained Neurosurgeon Director, [facility] Orders: Referrals Pain Management Referral M41.56 - Other secondary scoliosis, lumbar region Coding Level of Care Code Est Pt Level 2 (51773) Diagnoses Scoliosis of lumbar region due to degenerative disease of spine in adult M41.56
== END 2024-01-29 15:19 | disposition home or self-care (01) ==
PROVIDERS: PCP Internal Medicine; Visit Provider Neurological Surgery
DX: M41.56 Other secondary scoliosis, lumbar region (principal)
CPT/HCPCS: 99212

== ENCOUNTER → 2024-01-29 14:32 | Outpatient (BNVA) | payer MEDICARE, OTHER, SELFPAY | PROVIDERS: PCP Internal Medicine; Visit Provider Neurological Surgery | DX: M54.16 Radiculopathy, lumbar region (principal); M41.56 Other secondary scoliosis, lumbar region | CPT/HCPCS: 99212 ==

== ENCOUNTER 2024-02-10 09:29 | Outpatient (AMB) | payer MEDICARE, OTHER, SELFPAY ==
--- NOTE | 2024-02-10 09:19 | A.OFFVIS_ITS ---
Vital Signs 02/10/24 09:38 Height 5 ft 6 in Weight 165 lb BMI 26.6 BP 120/59 L Blood Pressure Location Lt brachial Position Sitting Respiration 14 Pulse 65 Pulse Source Pulse Oximeter Pulse Oximetry (%) 96 Oxygen Delivery Method Room Air Intake Visit Reasons: Back pain Allergies No Known Allergies Allergy (Verified 02/10/24 09:40) Medication List - Last Reconciled 02/10/24 by Angelika Rob LPN atorvastatin 80 mg PO DAILY clopidogrel mg PO diphth,pertus(acell),tetanus (Boostrix Tdap) mL IM donepezil 10 mg PO DAILY duloxetine 120 mg PO DAILY ezetimibe mg PO fesoterodine ER 8 mg PO DAILY gabapentin mg PO lisinopril mg PO omeprazole 20 mg PO DAILY HPI HPI Back pain: Details: 83-year-old male who presents to the office for evaluation of persistent back pain. He complains of right-sided back pain that radiates into his right knee. He was previously diagnosed for a right L4 radiculopathy, which was treated with a diagnostic L4 block. He also had a left L3 nerve block with subsequent resolution of his left-sided leg pain. His MRI shows multilevel degenerative facet joint disease. At this time his symptoms appear to be secondary to lumbar spondylosis. He would like to proceed with diagnostic facet blocks in the office today. Past procedures: 12/31/23: Selective nerve root block, left L3: 100% relief. 11/26/23: Selective nerve root block, right L4: 100% relief, ongoing 6 weeks out. Review of Systems Const All systems reviewed & are unremarkable except as noted in HPI and below Physical Exam Vital Signs: Last Vital Signs Pulse 65 02/10/24 09:38 Resp 14 02/10/24 09:38 BP 120/59 L 02/10/24 09:38 Pulse Ox 96 02/10/24 09:38 Oxygen Delivery Method Room Air 02/10/24 09:38 BMI result Body Mass Index 26.6 General: Appears afebrile. Alert and oriented. Mood and affect appropriate. Follows and participates in conversation appropriately. Respiratory effort is unlabored. Able to transition from sit to stand unassisted. Office Procedures Lumbar/Sacral Facet Inj Details: Lumbar Medial Branch Block, bilateral L4 medial branches and L5 Dorsal Ramus (1 level, 2 nerves) After obtaining written consent, pre-procedure blood pressure and pulse were recorded and are in the nursing record for review. The patient was placed in a prone position. The respective lumbosacral area was prepped with chloraprep and draped in sterile fashion. The skin over the target medial branch nerves was anesthetized with 0.5% lidocaine. A 21 gauge 80 mm echostim needle was inserted into the target medial branch nerve under ultrasound guidance. No paresthesias were elicited with needle placement and aspiration was negative for blood and CSF. Next, 0.2cc of omnipaque 180 was injected to verify positioning. Next 1 ml 0.5% ropivicaine was injected (0.5cc total per level). The identical procedure was performed at the remaining levels. The skin was cleansed and a sterile bandage was applied. Following the procedure the patient's vital signs were stable. The patient tolerated the procedure well and no complications were encountered. Following the procedure the patient's vital signs were stable. The patient was discharged home in good condition with post-procedural instructions. Time Out: Immediately prior to the procedure, the following was verbally confirmed that there is a signed consent form and that the correct patient, planned procedure, site and side are consistent with documentation and that necessary equipment and/or blood products are available prior to the start of the case. Complications: none EBL: <5 cc Additional procedure code (CPT) needed (One level under ultrasound) Results Reviewed Results Reviewed: 10/28/23: XR LUMBOSACRAL SPINE WITH LATERAL FLEXION AND EXTENSION FINDINGS: The bones are mildly demineralized. There is curve of the lumbar spine, convex left. There are 5 nonrib-bearing lumbar-type vertebral bodies. There is multilevel degenerative facet joint disease. There is marked anterior marginal osteophyte formation at L1-L2 and off the superior endplate of L1. There is retrolisthesis of L2 with respect to L3 and L4 with respect to L5. Patient demonstrates limited flexion and extension. There is no change in alignment with flexion and extension. There is calcification of the abdominal aorta without evidence of aneurysmal dilatation. IMPRESSION: 1. Curvature of the lumbar spine, convex left. 2. 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 3. Multilevel retrolisthesis. 4. No change in alignment with flexion and extension. Assessment & Plan Assessment & Plan (1) Lumbar spondylosis: Code(s): M47.816 - Spondylosis without myelopathy or radiculopathy, lumbar region Category: Medical Plan Patient is status post Lumbar Medial Branch Block, bilateral L4 medial branches and L5 Dorsal Ramus (2 levels, 3 nerves). Patient tolerated procedure well and was discharged home in stable condition with discharge instructions. All questions were answered. We will follow-up in two weeks via telephone or in [facility] [place] [facility] to assess response to therapy. A follow-up appointment was made during today's visit. We will schedule for a bilateral L4-L5 lumbar medial branch diagnostic blocks. Discussed the risks and benefits of the procedure with the patient in detail. All questions were answered. Based on response to today's injection we will likely pursue a 2nd round of diagnostic blocks under fluoroscopy. Justification for interventional therapy: ? Patient with average pain > 6/10 ? Patient has exhausted conservative therapy Scribed for Dr. Beck by Angeles Choe, medical insurance clerk, on 02/10/2024. I, Dr. Beck, have personally reviewed and agree with the information entered by the scribe. Coding Level of Care Code Est Pt Level 3 (38001) Diagnoses Lumbar spondylosis M47.816
[2024-02-10 09:38] VITALS: BP 120/59; PULSE 65; RESP 14; O2SAT 96; BMI 26.6
== END 2024-02-10 10:30 | disposition home or self-care (01) ==
PROVIDERS: PCP Internal Medicine; Visit Provider Internal Medicine
DX: M47.816 Spondylosis without myelopathy or radiculopathy, lumbar region (principal)
CPT/HCPCS: 64493; 64494; 99213

== ENCOUNTER → 2024-02-10 09:29 | Outpatient (BNVA) | payer MEDICARE, OTHER, SELFPAY | PROVIDERS: PCP Internal Medicine; Visit Provider Internal Medicine | DX: M47.816 Spondylosis without myelopathy or radiculopathy, lumbar region (principal) | CPT/HCPCS: 64493; 64494; 99212; J2795 ==

== ENCOUNTER 2024-03-10 06:22 | Outpatient (REF) | payer MEDICARE, OTHER, SELFPAY ==
--- NOTE | ~2024-03-10 | FL_ITS ---
EXAMINATION: XR FLUOROSCOPY WITH IMAGES CLINICAL INFORMATION: Spondylosis, lumbar region. COMPARISON: 12/31/2023. TECHNIQUE: Fluoroscopy Supervised By: Dr. Beck. Fluoroscopy Time: 0.2 min. Cumulative Dose: 1.85 mGy. DAP: 0.0322 Gycm2. Images: 4. FINDINGS: Intraoperative fluoroscopy and spot films were performed during a procedure in the OR. Tornado are present bilaterally at the L4, L5 and S1 foramen with contrast injected, which appeared to be in the epidural space surrounding the nerve roots. Please correlate with Dr. Beck' report for complete details. FL/FL guidance in treatment room IMPRESSION: Intraoperative fluoroscopy and spot films were obtained. Please see Dr. Beck' report for complete details.
== END 2024-03-10 06:23 | disposition home or self-care (01) ==
LOC: CF 06:22
PROVIDERS: Visit Provider Internal Medicine
DX: M47.816 Spondylosis without myelopathy or radiculopathy, lumbar region (principal)
CPT/HCPCS: 64493; 64494; J2795; Q9967

== ENCOUNTER 2024-03-10 10:26 | Outpatient (AMB) | payer MEDICARE, OTHER, SELFPAY ==
[2024-03-10 10:27] VITALS: BP 131/62; PULSE 61; RESP 14; O2SAT 98; BMI 27.0
--- NOTE | 2024-03-10 10:27 | A.OFFVIS_ITS ---
Vital Signs 03/10/24 10:27 03/10/24 11:41 Height 5 ft 6 in Weight 167 lb BMI 27.0 BP 131/62 124/58 L Blood Pressure Location Rt brachial Lt brachial Position Sitting Sitting Respiration 14 14 Pulse 61 55 Pulse Source Pulse Oximeter Pulse Oximeter Pulse Oximetry (%) 98 98 Oxygen Delivery Method Room Air Room Air Comment Pre-Op Post-Op Intake Visit Reasons: Federico Dx L3-L4-L5 MBB Cost Control Supervisor Required: No Accompanied by: Spouse Allergies No Known Allergies Allergy (Verified 02/10/24 09:40) HPI HPI Federico Dx L3-L4-L5 MBB: Details: Patient presents for scheduled procedure. Denies any recent cough, cold, infection, fever or other significant changes in medical history since last office visit. Physical Exam Vital Signs: Last Vital Signs Pulse 55 03/10/24 11:41 Resp 14 03/10/24 11:41 BP 124/58 L 03/10/24 11:41 Pulse Ox 98 03/10/24 11:41 Oxygen Delivery Method Room Air 03/10/24 11:41 BMI result Body Mass Index 27.0 Office Procedures Lumbar/Sacral Facet Inj Details: Lumbar Medial Branch Block, bilateral L3, L4 medial branches and L5 Dorsal Ramus (2 levels, 3 nerves) After obtaining written consent, pre-procedure blood pressure and pulse were recorded and are in the nursing record for review. The patient was placed in a prone position. The respective lumbosacral area was prepped with chloraprep and draped in sterile fashion. The skin over the target medial branch nerves was anesthetized with 0.5% lidocaine. A 22 gauge 3.5 inch needle was inserted into the target medial branch nerve under fluoroscopic guidance. No paresthesias were elicited with needle placement and aspiration was negative for blood and CSF. Next, 0.2cc of omnipaque 180 was injected to verify positioning. Next 0.5 ml 0.5% ropivicaine was injected (0.5cc total per level). The identical procedure was performed at the remaining levels. The skin was cleansed and a sterile bandage was applied. Following the procedure the patient's vital signs were stable. The patient tolerated the procedure well and no complications were encountered. Following the procedure the patient's vital signs were stable. The patient was discharged home in good condition with post-procedural instructions. Time Out: Immediately prior to the procedure, the following was verbally confirmed that there is a signed consent form and that the correct patient, planned procedure, site and side are consistent with documentation and that necessary equipment and/or blood products are available prior to the start of the case. Complications: none EBL: <5 cc 88303 - with Fluoroscopy 27998 - second level, with Fluoroscopy (Bilateral) Procedure code (CPT) selection complete Assessment & Plan Assessment & Plan (1) Lumbar spondylosis: Code(s): M47.816 - Spondylosis without myelopathy or radiculopathy, lumbar region Category: Medical Plan Patient is status post bilateral diagnostic lumbar medial branch blocks. Patient tolerated procedure well and was discharged home in stable condition with discharge instructions. All questions were answered. We will follow-up via telephone or in clinic to assess response to therapy. A follow-up appointment was made during today's visit. Orders: Orders FL guidance in treatment room Today M47.816 - Spondylosis without myelopathy or radiculopathy, lumbar region Coding Level of Care Code Procedure Only Diagnoses Lumbar spondylosis M47.816 CPT Codes Facet Injection-Lumbar/Sacral - CPT: 83037 - with Fluoroscopy ([id number]) Facet Injection-Lumbar/Sacral - CPT: 30017 - second level, with Fluoroscopy ([id number])
[2024-03-10 11:41] VITALS: BP 124/58; PULSE 55; RESP 14; O2SAT 98
== END 2024-03-10 11:42 | disposition home or self-care (01) ==
LOC: HO.PMCPRC 10:26
PROVIDERS: PCP Internal Medicine; Visit Provider Internal Medicine
DX: M47.816 Spondylosis without myelopathy or radiculopathy, lumbar region (principal)
CPT/HCPCS: 64493; 64494

== ENCOUNTER 2024-03-18 10:17 | Outpatient (AMB) | payer MEDICARE, OTHER, SELFPAY ==
--- NOTE | 2024-03-18 10:32 | MHC.OFFVIS ---
Vital Signs 03/18/24 10:37 Height 5 ft 6 in Weight 167 lb BMI 27.0 BP 136/62 Blood Pressure Location Rt brachial Position Sitting Pulse 57 Pulse Source Pulse Oximeter Pulse Oximetry (%) 98 Oxygen Delivery Method Room Air Intake Visit Reasons: s/p Federico Dx L3-L4-L5 MBB Intake Note: Pain today 3/10 Cd Manufacturing Supervisor Required: No Accompanied by: Self / Same As Patient Allergies No Known Allergies Allergy (Verified 03/18/24 10:37) HPI HPI s/p Federico Dx L3-L4-L5 MBB: Details: 83-year-old male who presents today to the office for a status post bilateral diagnostic L3-L4-L5 MBB. The patient reports 80% relief following the last procedure. He states that his pain score was improved from 8-9/10 to 3-4/10 in intensity. He states that his pain was down to 2/10 after two days of the last procedure. Past procedures 03/10/24: Lumbar Medial Branch Block, bilateral L3, L4 medial branches and L5 Dorsal Ramus (2 levels, 3 nerves): 80% relief. 02/10/24: Lumbar Medial Branch Block, bilateral L4 medial branches and L5 Dorsal Ramus (1 level, 2 nerves): no significant relief. 12/31/23: Selective nerve root block, left L3: 100% relief. 11/26/23: Selective nerve root block, right L4: 100% relief, ongoing 6 weeks out. Review of Systems Const All systems reviewed & are unremarkable except as noted in HPI and below Physical Exam Vital Signs: Last Vital Signs Pulse 57 03/18/24 10:37 BP 136/62 03/18/24 10:37 Pulse Ox 98 03/18/24 10:37 Oxygen Delivery Method Room Air 03/18/24 10:37 BMI result Body Mass Index 27.0 General: Appears afebrile. Alert and oriented. Mood and affect appropriate. Follows and participates in conversation appropriately. Respiratory effort is unlabored. Able to transition from sit to stand unassisted. Ambulates with bilaterally normal heel strike and toe off. Results Reviewed Results Reviewed: No imaging is available for review. Assessment & Plan Assessment & Plan (1) Lumbar spondylosis: Code(s): M47.816 - Spondylosis without myelopathy or radiculopathy, lumbar region Category: Medical Plan We will schedule for second round of a bilateral L3-L4-L5 lumbar medial branch diagnostic blocks at (2 levels and 3 nerves) in anticipation of medial branch RFA. Discussed the risks and benefits of the procedure with the patient in detail. All questions were answered. Justification for interventional therapy: ? Patient with average pain > 6/10 ? Patient has exhausted conservative therapy ? Patient unable to tolerate physical therapy due to pain ? Previous injection provided 80% relief. . Patient has a good understanding of their pain condition and has appropriate mental and social support Scribed for Dr. Beck by Jose Guadalupe Gerber, medical cash poster, on 03/18/2024. I, Dr. Beck, have personally reviewed and agree with the information entered by the scribe. Coding Level of Care Code Est Pt Level 3 (06328) Diagnoses Lumbar spondylosis M47.816
[2024-03-18 10:37] VITALS: BP 136/62; PULSE 57; O2SAT 98; BMI 27.0
== END 2024-03-18 10:54 | disposition home or self-care (01) ==
PROVIDERS: PCP Internal Medicine; Visit Provider Internal Medicine
DX: M47.816 Spondylosis without myelopathy or radiculopathy, lumbar region (principal)
CPT/HCPCS: 99213

== ENCOUNTER → 2024-03-18 10:17 | Outpatient (BNVA) | payer MEDICARE, OTHER, SELFPAY | PROVIDERS: PCP Internal Medicine; Visit Provider Internal Medicine | DX: M47.816 Spondylosis without myelopathy or radiculopathy, lumbar region (principal) | CPT/HCPCS: 99212 ==

== ENCOUNTER 2024-04-07 07:15 | Outpatient (REF) | payer MEDICARE, OTHER, SELFPAY | END 2024-04-07 07:16 | disposition home or self-care (01) | LOC: CF 07:15 | PROVIDERS: Visit Provider Internal Medicine | DX: M47.816 Spondylosis without myelopathy or radiculopathy, lumbar region (principal) | CPT/HCPCS: 64493; 64494; J2795; Q9967 ==

== ENCOUNTER 2024-04-07 10:48 | Outpatient (AMB) | payer MEDICARE, OTHER, SELFPAY ==
[2024-04-07 11:13] VITALS: BP 149/70; PULSE 61; RESP 17; O2SAT 95
--- NOTE | 2024-04-07 12:06 | MHC.OFFVIS ---
Vital Signs 04/07/24 11:13 04/07/24 12:07 BP 149/70 H 157/72 H Blood Pressure Location Rt brachial Rt brachial Position Sitting Sitting Respiration 17 16 Pulse 61 58 Pulse Source Pulse Oximeter Pulse Oximeter Pulse Oximetry (%) 95 98 Oxygen Delivery Method Room Air Room Air Comment Pre-op Post-op Intake Visit Reasons: Repeat Federico Dx L3-L4-L5 Allergies No Known Allergies Allergy (Verified 03/18/24 10:37) HPI HPI Repeat Federico Dx L3-L4-L5: Details: Patient presents for scheduled procedure. Denies any recent cough, cold, infection, fever or other significant changes in medical history since last office visit. Physical Exam Vital Signs: Last Vital Signs Pulse 58 04/07/24 12:07 Resp 16 04/07/24 12:07 BP 157/72 H 04/07/24 12:07 Pulse Ox 98 04/07/24 12:07 Oxygen Delivery Method Room Air 04/07/24 12:07 Office Procedures Lumbar/Sacral Facet Inj Details: Lumbar Medial Branch Block, Bilateral L3, L4 medial branches and L5 Dorsal Ramus (2 levels, 3 nerves) After obtaining written consent, pre-procedure blood pressure and pulse were recorded and are in the nursing record for review. The patient was placed in a prone position. The respective lumbosacral area was prepped with chloraprep and draped in sterile fashion. The skin over the target medial branch nerves was anesthetized with 0.5% lidocaine. A 22 gauge 3.5 inch needle was inserted into the target medial branch nerve under fluoroscopic guidance. No paresthesias were elicited with needle placement and aspiration was negative for blood and CSF. Next, 0.2cc of omnipaque 180 was injected to verify positioning. Next 0.5 ml 0.5% ropivicaine was injected (0.5cc total per level). The identical procedure was performed at the remaining levels. The skin was cleansed and a sterile bandage was applied. Following the procedure the patient's vital signs were stable. The patient tolerated the procedure well and no complications were encountered. Following the procedure the patient's vital signs were stable. The patient was discharged home in good condition with post-procedural instructions. Time Out: Immediately prior to the procedure, the following was verbally confirmed that there is a signed consent form and that the correct patient, planned procedure, site and side are consistent with documentation and that necessary equipment and/or blood products are available prior to the start of the case. Complications: none EBL: <5 cc 35525 - with Fluoroscopy 33920 - second level, with Fluoroscopy (Bilateral) Procedure code (CPT) selection complete Assessment & Plan Assessment & Plan (1) Lumbar spondylosis: Code(s): M47.816 - Spondylosis without myelopathy or radiculopathy, lumbar region Category: Medical Plan Patient is status post bilateral L3, L4 medial branches and L5 dorsal ramus diagnostic nerve blocks. Patient tolerated procedure well and was discharged home in stable condition with discharge instructions. All questions were answered. We will follow-up via telephone or in clinic to assess response to therapy. A follow-up appointment was made during today's visit. Orders: Orders FL guidance in treatment room Today M47.816 - Spondylosis without myelopathy or radiculopathy, lumbar region Coding Level of Care Code Procedure Only Diagnoses Lumbar spondylosis M47.816 CPT Codes Facet Injection-Lumbar/Sacral - CPT: 31412 - with Fluoroscopy ([id number]) Facet Injection-Lumbar/Sacral - CPT: 57983 - second level, with Fluoroscopy ([id number])
[2024-04-07 12:07] VITALS: BP 157/72; PULSE 58; RESP 16; O2SAT 98
== END 2024-04-07 12:01 | disposition home or self-care (01) ==
LOC: HO.PMCPRC 10:48
PROVIDERS: PCP Internal Medicine; Visit Provider Internal Medicine
DX: M47.816 Spondylosis without myelopathy or radiculopathy, lumbar region (principal)
CPT/HCPCS: 64493; 64494

== ENCOUNTER 2024-04-13 08:38 | Outpatient (AMB) | payer MEDICARE, OTHER, SELFPAY ==
[2024-04-13 08:40] VITALS: BP 137/64; PULSE 70; RESP 14; O2SAT 97; BMI 26.3
--- NOTE | 2024-04-13 08:40 | A.OFFVIS_ITS ---
Vital Signs 04/13/24 08:40 Height 5 ft 6 in Weight 163 lb BMI 26.3 BP 137/64 Blood Pressure Location Lt brachial Position Sitting Respiration 14 Pulse 70 Pulse Source Pulse Oximeter Pulse Oximetry (%) 97 Oxygen Delivery Method Room Air Intake Visit Reasons: s/p repeat billy Dx L3-L4-L5 MBB Allergies No Known Allergies Allergy (Verified 04/13/24 08:41) Medication List - Last Reconciled 04/13/24 by Angelika Rob LPN atorvastatin 80 mg PO DAILY clopidogrel mg PO diphth,pertus(acell),tetanus (Boostrix Tdap) mL IM donepezil 10 mg PO DAILY duloxetine 90 mg PO DAILY ezetimibe mg PO gabapentin mg PO lisinopril mg PO omeprazole 20 mg PO DAILY tramadol 50 - 100 mg PO QID PRN HPI HPI s/p repeat billy Dx L3-L4-L5 MBB: Details: 83-year-old male who presents today for evaluation of status post bilateral diagnostic L3-L4-L5 MBB. The patient reports 80% pain relief for 2 days following the procedure. He noticed subsequent return of symptoms for which he is back to using tramadol. He reports right side is worse than the left. Past procedures 04/07/24: Bilateral diagnostic L3-L4-L5 MBB: 80% relief for 2 days. 03/10/24: Lumbar Medial Branch Block, bilateral L3, L4 medial branches and L5 Dorsal Ramus (2 levels, 3 nerves): 80% relief. 02/10/24: Lumbar Medial Branch Block, bilateral L4 medial branches and L5 Dorsal Ramus (1 level, 2 nerves): no significant relief. 12/31/23: Selective nerve root block, left L3: 100% relief. 11/26/23: Selective nerve root block, right L4: 100% relief, ongoing 6 weeks out. Physical Exam Vital Signs: Last Vital Signs Pulse 70 04/13/24 08:40 Resp 14 04/13/24 08:40 BP 137/64 04/13/24 08:40 Pulse Ox 97 04/13/24 08:40 Oxygen Delivery Method Room Air 04/13/24 08:40 BMI result Body Mass Index 26.3 General: Appears afebrile. Alert and oriented. Mood and affect appropriate. Follows and participates in conversation appropriately. Respiratory effort is unlabored. Able to transition from sit to stand unassisted. Ambulates with bilaterally normal heel strike and toe off. Results Reviewed Results Reviewed: Date: 10/28/23 EXAMINATION: XR LUMBOSACRAL SPINE WITH LATERAL FLEXION AND EXTENSION FINDINGS: The bones are mildly demineralized. There is curve of the lumbar spine, convex left. There are 5 nonrib-bearing lumbar-type vertebral bodies. There is multilevel degenerative facet joint disease. There is marked anterior marginal osteophyte formation at L1-L2 and off the superior endplate of L1. There is retrolisthesis of L2 with respect to L3 and L4 with respect to L5. Patient demonstrates limited flexion and extension. There is no change in alignment with flexion and extension. There is calcification of the abdominal aorta without evidence of aneurysmal dilatation. IMPRESSION: 1. Curvature of the lumbar spine, convex left. 2. 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 3. Multilevel retrolisthesis. 4. No change in alignment with flexion and extension. Assessment & Plan Assessment & Plan (1) Lumbar spondylosis: Code(s): M47.816 - Spondylosis without myelopathy or radiculopathy, lumbar region Category: Medical Plan Patient has had MBB with 80% relief from his diagnostic injection for 2 days with subsequent return of symptoms so he is back to using tramadol. I discussed both radio frequency ablation and PNS of medial branch nerves as potential longer term treatment options for his intractable back pain. He is interested in a trial of temporary PNS starting with the right side, so we will schedule him for the right L3 medial branch temporary PNS placement, followed by the left side 2 weeks later.? Discussed the risks and benefits of the procedure with the patient in detail. All questions were answered. The patient is on board with the plan. Justification for interventional therapy: ? Patient with average pain > 6/10 ? Patient has exhausted conservative therapy ? Patient unable to tolerate physical therapy due to pain ? Diagnostic injection provided more than 80% relief . Patient has a good understanding of their pain condition and has appropriate mental and social support Scribed for Dr. Beck by Reggie, medical malpractice paralegal, on 04/13/2024. I, Dr. Beck, have personally reviewed and agree with the information entered by the scribe. Coding Level of Care Code Est Pt Level 3 (68348) Diagnoses Lumbar spondylosis M47.816
== END 2024-04-13 09:05 | disposition home or self-care (01) ==
PROVIDERS: PCP Internal Medicine; Visit Provider Internal Medicine
DX: M47.816 Spondylosis without myelopathy or radiculopathy, lumbar region (principal)
CPT/HCPCS: 99213

== ENCOUNTER → 2024-04-13 08:38 | Outpatient (BNVA) | payer MEDICARE, OTHER, SELFPAY | PROVIDERS: PCP Internal Medicine; Visit Provider Internal Medicine | DX: M47.816 Spondylosis without myelopathy or radiculopathy, lumbar region (principal) | CPT/HCPCS: 99212 ==

== ENCOUNTER 2024-04-14 08:46 | Outpatient (REF) | payer SELFPAY | END 2024-04-14 08:47 | disposition home or self-care (01) | LOC: HO.HAP 08:46 | PROVIDERS: Visit Provider Internal Medicine | DX: Z13.89 Encounter for screening for other disorder (principal) ==

== ENCOUNTER 2024-06-30 06:10 | Outpatient (REF) | payer MEDICARE, OTHER, SELFPAY | END 2024-06-30 06:11 | disposition home or self-care (01) | LOC: CF 06:10 | PROVIDERS: Visit Provider Internal Medicine | DX: M47.816 Spondylosis without myelopathy or radiculopathy, lumbar region (principal); M54.50 Low back pain, unspecified; G89.29 Other chronic pain | CPT/HCPCS: 64555; C1778; J2003 ==

== ENCOUNTER 2024-06-30 08:37 | Outpatient (AMB) | payer MEDICARE, OTHER, SELFPAY ==
[2024-06-30 08:45] VITALS: BP 144/59; PULSE 62; O2SAT 99
--- NOTE | 2024-06-30 08:45 | A.OFFVIS_ITS ---
Vital Signs 06/30/24 08:45 06/30/24 09:51 BP 144/59 H 156/66 H Blood Pressure Location Lt brachial Lt brachial Position Sitting Sitting Pulse 62 63 Pulse Source Pulse Oximeter Pulse Oximeter Pulse Oximetry (%) 99 97 Oxygen Delivery Method Room Air Room Air Intake Visit Reasons: Right L3 Sprint Allergies No Known Allergies Allergy (Verified 04/13/24 08:41) HPI HPI Right L3 Sprint: Details: Patient presents for scheduled procedure. Denies any recent cough, cold, infection, fever or other significant changes in medical history since last office visit. Physical Exam Vital Signs: Last Vital Signs Pulse 63 06/30/24 09:51 BP 156/66 H 06/30/24 09:51 Pulse Ox 97 06/30/24 09:51 Oxygen Delivery Method Room Air 06/30/24 09:51 Office Procedures Details: Lumbar Medial Branch Nerve Stimulation Lead Placement, SPR (Sprint) System, RIGHT L3 ? After the risks, benefits and alternatives were discussed with the patient and informed consent was obtained, patient was placed in the prone position and padded to foster comfort. The skin overlying the lumbosacral spine was prepped and draped in sterile fashion. Fluoroscopy was used to identify the spinous process and lamina in the center of the patient?s region of pain. After identifying and marking the intended target along the course of the medial branch nerve, the skin around the planned entry point and the subcutaneous tissues were injected with lidocaine 1%. An introducer needle and stimulating probe were assembled, inserted and advanced along the intended course of the medial branch nerve as it traverses the lamina medial and inferior to the zygapophyseal joint, taking care to maintain the proper depth of insertion as the introducer is advanced under fluoroscopic guidance. The introducer needle was delivered to a location in proximity to the nerve. Multiple stimulation parameters were used to deliver stimulation to the target medial branch nerve in concert with stimulating at multiple positions around the nerve. Nerve target acquisition was confirmed noting generation of paresthesias in the paravertebral regions corresponding to the level being stimulated. Various electrical parameter combinations were tested, and the lead location was adjusted (physically relocated) until the patient indicated paresthesia/muscle tension overlapping the distribution of the patient?s typical region of pain. The stimulating probe was removed from the introducer and a percutaneous lead was guided through the needle and delivered to a location in similar proximity to the nerve. Final location was verified with electrical stimulation and do cumented with fluoroscopy. The introducer needle was removed, and the exposed end of the percutaneous lead was attached to an external stimulator unit. Various electrical parameter combinations were again tested until the patient indicated paresthesia or muscle tension overlapping the distribution of the patient?s typical region of pain. After confirming that lead impedance was in the normal range, the external unit was detached, the needle was removed, and the lead was anchored at the skin. The lead was threaded into the connector block and electrical continuity and desired patient response was confirmed. The connector block was attached to the external stimulator unit. The site was covered with a sterile occlusive dressing. The patient was observed for stability of vital signs and comfort. Sprint PNS Device: Sprint PNS Device [id number] Percutaneous Peripheral Neuroelectrode Procedure: 27877 - Percutaneous Peripheral Neuroelectrode Procedure code (CPT) selection complete Office Meds lidocaine HCl 10 mg/mL (1 %) injection solution Performing Provider: Mary Kate Dill APRN, CNP Performing Location: [facility] Administered by: Angelika Rob LPN on 06/30/24 09:35 Dose Route Admin Location Dispensed Lot Number Expiration Date [facility] [employer] 5 mL subcut 5 mL Assessment & Plan Assessment & Plan (1) Lumbar spondylosis: Code(s): M47.816 - Spondylosis without myelopathy or radiculopathy, lumbar region Category: Medical (2) Chronic low back pain: Code(s): M54.50 - Low back pain, unspecified; G89.29 - Other chronic pain Category: Medical Plan Patient is status post right L3 temporary medial branch nerve stimulator placement. Patient tolerated procedure well and was discharged home in stable condition with discharge instructions. All questions were answered. We will follow-up via telephone or in clinic to assess response to therapy. A follow-up appointment was made during today's visit. Orders: Orders [place] guidance in treatment room Today M47.816 - Spondylosis without myelopathy or radiculopathy, lumbar region AMB Sprint PNS Today M47.816 - Spondylosis without myelopathy or radiculopathy, lumbar region Coding Level of Care Code Procedure Only Diagnoses Lumbar spondylosis M47.816 Chronic low back pain M54.50; G89.29 CPT Codes Sprint PNS - Sprint PNS Device: Sprint PNS Device ([id number]) Sprint PNS - SPRINT: 54273 - Percutaneous Peripheral Neuroelectrode ([id number]) Implantable Device Implantable Device Implantable Devices Qty [employer] Partner Implant Date Expiration Date Analgesic PENS system 1 [facility] [employer] 06/30/24 04/13/25
[2024-06-30 09:51] VITALS: BP 156/66; PULSE 63; O2SAT 97
== END 2024-06-30 10:09 | disposition home or self-care (01) ==
LOC: HO.PMCPRC 08:37
PROVIDERS: PCP Internal Medicine; Visit Provider Internal Medicine
DX: M47.816 Spondylosis without myelopathy or radiculopathy, lumbar region (principal); M54.50 Low back pain, unspecified; G89.29 Other chronic pain
CPT/HCPCS: 64555

== ENCOUNTER 2024-07-08 10:30 | Outpatient (AMB) | payer MEDICARE, OTHER, SELFPAY ==
--- NOTE | 2024-07-08 10:48 | MHC.OFFVIS ---
Vital Signs 07/08/24 10:49 Height 5 ft 6 in Weight 163 lb BMI 26.3 BP 116/57 L Blood Pressure Location Lt brachial Position Sitting Respiration 15 Pulse 60 Pulse Source Pulse Oximeter Pulse Oximetry (%) 96 Oxygen Delivery Method Room Air Intake Visit Reasons: s/p right L3 Sprint Allergies No Known Allergies Allergy (Verified 07/08/24 10:51) Medication List - Last Reconciled 07/08/24 by Angelika Rob LPN atorvastatin 80 mg PO DAILY clopidogrel mg PO diphth,pertus(acell),tetanus (Boostrix Tdap) mL IM donepezil 10 mg PO DAILY duloxetine 90 mg PO DAILY ezetimibe mg PO gabapentin mg PO lisinopril mg PO omeprazole 20 mg PO DAILY tramadol 50 - 100 mg PO QID PRN HPI HPI s/p right L3 Sprint: Details: 84-year-old male who presents today to the office for a status post right L3 sprint. He states that his pain is better compared to pain prior to the procedure. The dressing was changed today. He states that his changes the dressing at home. Past procedures 06/30/24: Lumbar Medial Branch Nerve Stimulation Lead Placement, SPR (Sprint) System, RIGHT L3: % relief. 04/07/24: Bilateral diagnostic L3-L4-L5 MBB: 80% relief for 2 days. 03/10/24: Lumbar Medial Branch Block, bilateral L3, L4 medial branches and L5 Dorsal Ramus (2 levels, 3 nerves): 80% relief. 02/10/24: Lumbar Medial Branch Block, bilateral L4 medial branches and L5 Dorsal Ramus (1 level, 2 nerves): no significant relief. 12/31/23: Selective nerve root block, left L3: 100% relief. 11/26/23: Selective nerve root block, right L4: 100% relief, ongoing 6 weeks out. Review of Systems Const All systems reviewed & are unremarkable except as noted in HPI and below Physical Exam Vital Signs: Last Vital Signs Pulse 60 07/08/24 10:49 Resp 15 07/08/24 10:49 BP 116/57 L 07/08/24 10:49 Pulse Ox 96 07/08/24 10:49 Oxygen Delivery Method Room Air 07/08/24 10:49 BMI result Body Mass Index 26.3 General: Appears afebrile. Alert and oriented. Mood and affect appropriate. Follows and participates in conversation appropriately. Respiratory effort is unlabored. Able to transition from sit to stand unassisted. Ambulates with bilaterally normal heel strike and toe off. There is a significant allergic reaction at the previous grounding pad attachment site. Lead insertion site is clean, dry, and intact. There is mild rash under the lead dressing. Results Reviewed Results Reviewed: No imaging is available for review. Assessment & Plan Assessment & Plan (1) Chronic low back pain: Code(s): M54.50 - Low back pain, unspecified; G89.29 - Other chronic pain Category: Medical (2) Lumbar spondylosis: Code(s): M47.816 - Spondylosis without myelopathy or radiculopathy, lumbar region Category: Medical (3) Scoliosis of lumbar region due to degenerative disease of spine in adult: Code(s): M41.56 - Other secondary scoliosis, lumbar region Category: Medical Plan I recommended applying topical cortisone cream to the area of the allergic reaction. We also redressed the lead insertion site with a different hypoallergic dressing in the office today and provided him with the supplies to take home. I also recommended that he change the dressings every three to four days and to contact us if he develops further allergic reactions. The patient will continue to use the device. He will follow up in seven weeks for removal of the device. Scribed for Dr. Beck by Jose Guadalupe Gerber, medical and scientific illustrator, on 07/08/2024. I, Dr. Beck, have personally reviewed and agree with the information entered by the scribe. Coding Level of Care Code Est Pt Level 3 (04644) Diagnoses Chronic low back pain M54.50; G89.29 Lumbar spondylosis M47.816 Scoliosis of lumbar region due to degenerative disease of spine in adult M41.56
[2024-07-08 10:49] VITALS: BP 116/57; PULSE 60; RESP 15; O2SAT 96; BMI 26.3
== END 2024-07-08 11:16 | disposition home or self-care (01) ==
PROVIDERS: PCP Internal Medicine; Visit Provider Internal Medicine
DX: M54.50 Low back pain, unspecified (principal); G89.29 Other chronic pain; M47.816 Spondylosis without myelopathy or radiculopathy, lumbar region; M41.56 Other secondary scoliosis, lumbar region
CPT/HCPCS: 99024

== ENCOUNTER → 2024-07-08 10:30 | Outpatient (BNVA) | payer MEDICARE, OTHER, SELFPAY | PROVIDERS: PCP Internal Medicine; Visit Provider Internal Medicine | DX: M47.816 Spondylosis without myelopathy or radiculopathy, lumbar region (principal); G89.29 Other chronic pain; M41.56 Other secondary scoliosis, lumbar region | CPT/HCPCS: 99212 ==

== ENCOUNTER 2024-07-14 07:51 | Outpatient (REF) | payer MEDICARE, OTHER, SELFPAY | END 2024-07-14 07:52 | disposition home or self-care (01) | LOC: CF 07:51 | PROVIDERS: Visit Provider Internal Medicine | DX: M47.816 Spondylosis without myelopathy or radiculopathy, lumbar region (principal); M54.50 Low back pain, unspecified; G89.29 Other chronic pain | CPT/HCPCS: 64555; C1778; J2003 ==

== ENCOUNTER 2024-07-14 08:34 | Outpatient (AMB) | payer MEDICARE, OTHER, SELFPAY ==
--- NOTE | 2024-07-14 08:32 | A.OFFVIS_ITS ---
Vital Signs 07/14/24 08:37 07/14/24 09:48 BP 138/66 125/58 L Blood Pressure Location Lt brachial Lt brachial Position Sitting Sitting Pulse 65 61 Pulse Source Pulse Oximeter Pulse Oximeter Pulse Oximetry (%) 97 95 Oxygen Delivery Method Room Air Room Air Intake Visit Reasons: Left L3 Sprint Allergies No Known Allergies Allergy (Verified 07/08/24 10:51) HPI HPI Left L3 Sprint: Details: Patient presents for scheduled procedure. Denies any recent cough, cold, infection, fever or other significant changes in medical history since last office visit. Physical Exam Vital Signs: Last Vital Signs Pulse 61 07/14/24 09:48 BP 125/58 L 07/14/24 09:48 Pulse Ox 95 07/14/24 09:48 Oxygen Delivery Method Room Air 07/14/24 09:48 Office Procedures Details: Lumbar Medial Branch Nerve Stimulation Lead Placement, SPR (Sprint) System, Bilateral L3 Medial Branches ? After the risks, benefits and alternatives were discussed with the patient and informed consent was obtained, patient was placed in the prone position and padded to foster comfort. The previously placed lead on the right side was noted to be displaced on visual inspection and the displacement was confirmed with fluoroscopy. Decision was made to replace the right lead at the same time while placing the left lead. The right lead was removed completely with tip intact. The skin overlying the lumbosacral spine was prepped and draped in sterile fashion. Fluoroscopy was used to identify the spinous process and lamina in the center of the patient?s region of pain. After identifying and marking the intended target along the course of the medial branch nerve, the skin around the planned entry points and the subcutaneous tissues were injected with lidocaine 1%. Two introducer needles and stimulating probes were assembled, inserted and adv anced along the intended course of the medial branch nerves under the laminae medial and inferior to the zygapophyseal joints on both sides, taking care to maintain the proper depth of insertion as the introducers were advanced under fluoroscopic guidance. The introducer needles were delivered in proximity to the nerves. Multiple stimulation parameters were used to deliver stimulation to the target medial branch nerves in concert with stimulating at multiple positions around the nerves. Nerve target acquisition was confirmed noting generation of paresthesias in the paravertebral regions corresponding to the levels being stimulated. Various electrical parameter combinations were tested, and the leads were adjusted (physically relocated) until the patient indicated paresthesia/muscle tension overlapping the distribution of the patient?s typical region of pain. The stimulating probes were removed from the introducers and percutaneous leads were guided through the needles and delivered in similar proximity to the nerves. Final location was verified with electrical stimulation and documented with fluoroscopy. The introducer needles were removed, and the exposed ends of the percutaneous leads were attached to an external stimulator unit. Various electrical parameter combinations were again tested until the patient indicated paresthesia or muscle tension overlapping the distribution of the patient?s typical region of pain. After confirming that lead impedance was in the normal range, the external unit was detached, the needle was removed, and the leads were anchored at the skin. The leads were threaded into the connector blocks and electrical continuity and desired patient response was confirmed. The connector blocks were attached to the external stimulator unit. The site was covered with a sterile occlusive dressing. The patient was observed for stability of vital signs and comfort. Sprint PNS Device: Sprint PNS Device [id number] Percutaneous Peripheral Neuroelectrode Procedure: 73975 - Percutaneous Peripheral Neuroelectrode Procedure code (CPT) selection complete Office Meds lidocaine HCl 10 mg/mL (1 %) injection solution Performing Provider: Mary Kate Dill APRN, FAHAD Performing Location: [facility] [place] [facility] Administered by: Angelika Rob LPN on 07/14/24 09:26 Dose Route Admin Location Dispensed Lot Number Expiration Date [facility] Director Of Acquisitions 5 mL subcut 5 mL Assessment & Plan Assessment & Plan (1) Lumbar spondylosis: Code(s): M47.816 - Spondylosis without myelopathy or radiculopathy, lumbar region Category: Medical (2) Chronic low back pain: Code(s): M54.50 - Low back pain, unspecified; G89.29 - Other chronic pain Category: Medical Plan Patient is status post left initial and right replacement temporary L3 medial branch stimulator lead placement. Patient tolerated procedure well and was discharged home in stable condition with discharge instructions. All questions were answered. We will follow-up via telephone or in clinic to assess response to therapy. A follow-up appointment was made during today's visit. Orders: Orders [place] guidance in treatment room Today M47.816 - Spondylosis without myelopathy or radiculopathy, lumbar region AMB Sprint PNS Today M47.816 - Spondylosis without myelopathy or radiculopathy, lumbar region Coding Level of Care Code Procedure Only Diagnoses Lumbar spondylosis M47.816 Chronic low back pain M54.50; G89.29 CPT Codes Sprint PNS - Sprint PNS Device: Sprint PNS Device ([id number]) Sprint PNS - SPRINT: 73278 - Percutaneous Peripheral Neuroelectrode ([id number]) Implantable Device Implantable Device Implantable Devices Qty Director Of Acquisitions Implant Date Expiration Date Analgesic PENS system 1 [employer] 06/30/24 04/13/25 Analgesic PENS system 1 [employer] 07/14/24 03/01/25
[2024-07-14 08:37] VITALS: BP 138/66; PULSE 65; O2SAT 97
[2024-07-14 09:48] VITALS: BP 125/58; PULSE 61; O2SAT 95
== END 2024-07-14 10:19 | disposition home or self-care (01) ==
LOC: HO.PMCPRC 08:34
PROVIDERS: PCP Internal Medicine; Visit Provider Internal Medicine
DX: M47.816 Spondylosis without myelopathy or radiculopathy, lumbar region (principal)
CPT/HCPCS: 64555

== ENCOUNTER 2024-07-20 09:00 | Outpatient (AMB) | payer MEDICARE, OTHER, SELFPAY ==
[2024-07-20 09:17] VITALS: BP 147/67; PULSE 70; O2SAT 96; BMI 27.8
--- NOTE | 2024-07-20 09:17 | MHC.OFFVIS ---
Vital Signs 07/20/24 09:17 Height 5 ft 6 in Weight 172 lb BMI 27.8 BP 147/67 H Blood Pressure Location Rt brachial Position Sitting Pulse 70 Pulse Source Pulse Oximeter Pulse Oximetry (%) 96 Oxygen Delivery Method Room Air Intake Visit Reasons: s/p left L3 Sprint Allergies No Known Allergies Allergy (Verified 07/20/24 09:18) Medication List - Last Reconciled 07/20/24 by Funmi Salinas atorvastatin 80 mg PO DAILY clopidogrel mg PO diphth,pertus(acell),tetanus (Boostrix Tdap) mL IM donepezil 10 mg PO DAILY duloxetine 90 mg PO DAILY ezetimibe mg PO gabapentin mg PO lisinopril mg PO omeprazole 20 mg PO DAILY tramadol 50 - 100 mg PO QID PRN HPI HPI s/p left L3 Sprint: Details: 84-year-old male who presents today for evaluation of status post left initial and right replacement temporary L3 medial branch stimulator lead placement. The patient reports >70% initial relief following the procedure. He has adequate paresthesia on the left side but not so much on the right side. Amplitude setting for both sides is between 85-90 on his controller. Past procedures 07/14/24: Lumbar Medial Branch Nerve Stimulation Lead Placement, SPR (Sprint) System, Bilateral L3 Medial Branches: >70% initial relief. 06/30/24: Lumbar Medial Branch Nerve Stimulation Lead Placement, SPR (Sprint) System, RIGHT L3: % relief. 04/07/24: Bilateral diagnostic L3-L4-L5 MBB: 80% relief for 2 days. 03/10/24: Lumbar Medial Branch Block, bilateral L3, L4 medial branches and L5 Dorsal Ramus (2 levels, 3 nerves): 80% relief. 02/10/24: Lumbar Medial Branch Block, bilateral L4 medial branches and L5 Dorsal Ramus (1 level, 2 nerves): no significant relief. 12/31/23: Selective nerve root block, left L3: 100% relief. 11/26/23: Selective nerve root block, right L4: 100% relief, ongoing 6 weeks out. Review of Systems Const All systems reviewed & are unremarkable except as noted in HPI and below Physical Exam Vital Signs: Last Vital Signs Pulse 70 07/20/24 09:17 BP 147/67 H 07/20/24 09:17 Pulse Ox 96 07/20/24 09:17 Oxygen Delivery Method Room Air 07/20/24 09:17 BMI result Body Mass Index 27.8 General: Appears afebrile. Alert and oriented. Mood and affect appropriate. Follows and participates in conversation appropriately. Respiratory effort is unlabored. Able to transition from sit to stand unassisted. Ambulates with bilaterally normal heel strike and toe off. Lead insertion sites were clean, dry, and intact. The dressing was changed in the office today. Results Reviewed Results Reviewed: 10/28/23: XR LUMBOSACRAL SPINE WITH LATERAL FLEXION AND EXTENSION FINDINGS: The bones are mildly demineralized. There is curve of the lumbar spine, convex left. There are 5 nonrib-bearing lumbar-type vertebral bodies. There is multilevel degenerative facet joint disease. There is marked anterior marginal osteophyte formation at L1-L2 and off the superior endplate of L1. There is retrolisthesis of L2 with respect to L3 and L4 with respect to L5. Patient demonstrates limited flexion and extension. There is no change in alignment with flexion and extension. There is calcification of the abdominal aorta without evidence of aneurysmal dilatation. IMPRESSION: 1. Curvature of the lumbar spine, convex left. 2. 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 3. Multilevel retrolisthesis. 4. No change in alignment with flexion and extension. Assessment & Plan Assessment & Plan (1) Chronic low back pain: Code(s): M54.50 - Low back pain, unspecified; G89.29 - Other chronic pain Category: Medical (2) Lumbar spondylosis: Code(s): M47.816 - Spondylosis without myelopathy or radiculopathy, lumbar region Category: Medical Plan The dressing was changed in the office today. Lead insertion sites were clean, dry, and intact. Patient will continue the therapy for the seven weeks. To help with dressing changes, I recommended that he come to our office twice a week for our nurse to do it since it is difficult for his to do it reliably. He will come back on Thursday, for nursing schedule. He may take showers. Recommended to follow the instructions carefully while taking showers. Scribed for Dr. Beck by Reggie administrative medical director, on 07/20/2024. I, Dr. Beck, have personally reviewed and agree with the information entered by the scribe. Coding Level of Care Code Est Pt Level 3 (71812) Diagnoses Chronic low back pain M54.50; G89.29 Lumbar spondylosis M47.816
== END 2024-07-20 09:51 | disposition home or self-care (01) ==
PROVIDERS: PCP Internal Medicine; Visit Provider Internal Medicine
DX: M54.50 Low back pain, unspecified (principal); G89.29 Other chronic pain; M47.816 Spondylosis without myelopathy or radiculopathy, lumbar region
CPT/HCPCS: 99024

== ENCOUNTER → 2024-07-20 09:00 | Outpatient (BNVA) | payer MEDICARE, OTHER, SELFPAY | PROVIDERS: PCP Internal Medicine; Visit Provider Internal Medicine | DX: M54.50 Low back pain, unspecified (principal); G89.29 Other chronic pain; M47.816 Spondylosis without myelopathy or radiculopathy, lumbar region | CPT/HCPCS: 99212 ==

== ENCOUNTER 2024-08-26 08:04 | Outpatient (AMB) | payer MEDICARE, OTHER, SELFPAY ==
--- NOTE | 2024-08-26 08:10 | MHC.OFFVIS ---
Vital Signs 08/26/24 08:12 Height 5 ft 6 in Weight 172 lb BMI 27.8 BP 148/62 H Blood Pressure Location Lt brachial Position Sitting Respiration 16 Pulse 59 Pulse Source Pulse Oximeter Pulse Oximetry (%) 96 Oxygen Delivery Method Room Air Intake Visit Reasons: right Sprint removal Allergies No Known Allergies Allergy (Verified 08/26/24 08:13) Medication List - Last Reconciled 08/26/24 by Angelika Rob LPN atorvastatin 80 mg PO DAILY clopidogrel mg PO diphth,pertus(acell),tetanus (Boostrix Tdap) mL IM donepezil 10 mg PO DAILY duloxetine 90 mg PO DAILY ezetimibe mg PO gabapentin mg PO lisinopril mg PO omeprazole 20 mg PO DAILY tramadol 50 - 100 mg PO QID PRN HPI HPI right Sprint removal: Details: Reynaldo presents for sprint lead removal. He reports 100% pain relief and is currently pain-free. He is very pleased with the results of the PNS treatment. Physical Exam Vital Signs: Last Vital Signs Pulse 59 08/26/24 08:12 Resp 16 08/26/24 08:12 BP 148/62 H 08/26/24 08:12 Pulse Ox 96 08/26/24 08:12 Oxygen Delivery Method Room Air 08/26/24 08:12 BMI result Body Mass Index 27.8 On exam today: Appears afebrile. Alert and oriented. Mood and affect appropriate. Follows and participates in conversation appropriately. Respiratory effort is unlabored. Able to transition from sit to stand unassisted. Ambulates with bilaterally normal heel strike and toe off. Able to stand and walk on toes and heels. Lead removed with tip intact. Assessment & Plan Assessment & Plan (1) Chronic low back pain: Code(s): M54.50 - Low back pain, unspecified; G89.29 - Other chronic pain Category: Medical (2) Lumbar spondylosis: Code(s): M47.816 - Spondylosis without myelopathy or radiculopathy, lumbar region Category: Medical Plan Excellent response to lumbar medial branch nerve stimulation trials. Follow-up as needed. Coding Level of Care Code Est Pt Level 3 (44680) Diagnoses Chronic low back pain M54.50; G89.29 Lumbar spondylosis M47.816
[2024-08-26 08:12] VITALS: BP 148/62; PULSE 59; RESP 16; O2SAT 96; BMI 27.8
== END 2024-08-26 09:17 | disposition home or self-care (01) ==
PROVIDERS: PCP Internal Medicine; Visit Provider Internal Medicine
DX: M54.50 Low back pain, unspecified (principal); G89.29 Other chronic pain; M47.816 Spondylosis without myelopathy or radiculopathy, lumbar region
CPT/HCPCS: 99213

== ENCOUNTER → 2024-08-26 08:04 | Outpatient (BNVA) | payer MEDICARE, OTHER, SELFPAY | PROVIDERS: PCP Internal Medicine; Visit Provider Internal Medicine | DX: M54.50 Low back pain, unspecified (principal); M47.816 Spondylosis without myelopathy or radiculopathy, lumbar region; G89.29 Other chronic pain | CPT/HCPCS: 99212 ==

== ENCOUNTER 2024-09-22 08:15 | Outpatient (REF) | payer SELFPAY ==
--- OUTSIDE RECORDS SUMMARY | 2024-09-22 11:09 | XMS_ITS | Clinical Summary ---
Author Organization [facility] Address [address] [place] [address] Care Team Providers Care E Business Manager Name Role Phone Unavailable Primary Care Provider Unavailabl e Social History Tobacco Use Types Packs/Day Years Used Date Smoking Tobacco: Never Assessed Sex and Gender Information Value Date Recorded Sex Assigned at Not on file Gender Identity Not on file Sexual Orientation Not on file Plan of Treatment Health Maintenance Due Date Last Done Comments DTaP/Tdap/Td Vaccines (1 - Tdap) 1959 Pneumococcal Vaccines 50+ (1 of 1 - PCV) 1989 Zoster (Shingles) Vaccine (1 of 2) 1989 RSV Vaccine 60 years and old er and Patients (1 - 1-dose 75+ series) 2014 COVID-19 Vaccine (2023-2 5 season) 2024 Hepatitis B Vaccines Aged Out No long er eligible based on patient's age to complete this topic
--- OUTSIDE RECORDS SUMMARY | 2024-09-22 11:09 | XMS_ITS | Clinical Summary ---
Author Organization [facility] Address [address] [place] [address] Care Team Providers Care Financial Report Service Sales Agent Name Role Phone Primitivo Lee MD Primary Care Provider [phone] Allergies No known active allergies Medications Medication Sig Dispensed Refills Start Date End Date Status ATORVASTATIN CALCIUM PO Take by mouth. 0 Active GABAPENTIN PO Take 300 mg by mouth 2 (two) times a day. 0 Active LISINOPRIL PO Take 20 mg by mouth daily. 0 Active Mirabegron ER 50 MG TB24 Take 50 mg by mouth daily. 0 Active CLOPIDOGREL BISULFATE PO Take by mouth. 0 Active DONEPEZIL HCL PO Take by mouth. 0 Acti ve ESCITALOPRAM OXALATE PO Take by mouth. 0 Active TRAMADOL HCL ER PO Take by mouth. 0 Ac tive Acetaminophen (TYLENOL PO) Take by mouth. 0 Active Ascorbic Acid (VITAMIN C ER PO) Take by mouth. 0 Active Cholecalciferol (VITAMIN D3 PO) Take by mouth. 0 Activ e DULoxetine (CYMBALTA) DR capsule 30 mg Take 1 capsule (30 mg total) by mouth 3 (three) times a day. 0 Active Active Problems Problem Noted Date Diagnosed Date Weight loss 07/01/2021 Prostate cancer 05/17/2018 Malignant neoplasm metastatic to bone 05/17/2018 Mixed hyperlipidemia 05/17/2018 Dementia without behavioral disturbance 05/17/20 18 Essential hypertension 05/17/2018 Gastroesophageal reflux disease 05/17/2018 Social History Tobacco Use Types Packs/Day Years Used Date Smoking Tobacco: Never Smokeless Tobacco: Never Alcohol Use Standard Drinks/Week Comments Yes 0 (1 standard drink = 0.6 oz pur e alcohol) social Sex and Gender Information Value Date Recorded Sex Assigned at Not on file Gender Identity Not on file Sexual Orientation Not on file Job Start Date Occupation Industry Not on file Not on file Not on file Last Filed Vital Signs Vital Sign Reading Time Taken Comments Blood Pressure 131/63 02/15/2024 1:05 PM EDT Pulse 62 02/15/2024 1:05 PM EDT Temperature 36.2 ??C (97.2 ??F) 02/15/2024 1:05 PM ED T Respiratory Rate - - Oxygen Saturation 97% 02/15/2024 1:05 PM EDT Inhaled Oxygen Concentration - - Weight 75.9 kg (167 lb 6.4 oz) 02/15/2024 1:05 P M EDT Height 167.6 cm (5' 6 ) 02/14/2022 1:47 PM EDT Body Mass Index 27.02 02/14/2022 1:47 PM EDT Plan of Treatment Health Maintenance Due Date Last Done Comments Depression Screening 1951 Preventative Health Evaluation 1957 DTap / Tdap / Td (1 - Tdap) 1958 Fall Risk Assessment 2004 COVID-19 Vaccine ( season) 2024 06/02/2023, 12/06/2021, 05/23/2021, Additional history exists Influenza Vaccine (#1) 2024 , 05/21/2022, 05/23/2021, Additional history exists Pneumococcal Vaccine Completed 06/20/2014, 01/23/20 Shingrix-Zoster Vaccine Completed 01/11/2019, 10/15 RSV Adult > 60+ Yrs or Completed 05/22/2023 Hepatitis B Vaccines Aged Out No long er eligible based on patient's age to complete this topic RSV Ped < 20 months Aged Out No longe r eligible based on patient's age to complete this topic Care Teams Financial Report Service Sales Agent Relationship Specialty Start Date End Date Primitivo Lee MD PCP - General Internal Medicine 05/12/18
--- OUTSIDE RECORDS SUMMARY | 2024-09-22 11:09 | XMS_ITS | Clinical Summary ---
Author Organization [facility] Address [address] [place] [address] Care Team Providers Care Cosmetic Manager Name Role Phone Primitivo Lee MD Primary Care Provider Allergies No known active allergies Medications Medication Sig Dispensed Refills Start Date End Date Status ACETAMINOPHEN ORAL Take by mouth. Ac tive ASCORBIC ACID, VITAMIN C, ORAL Take by mouth. Active atorvastatin calcium (ATORVASTATIN ORAL) Take by mouth. A ctive CHOLECALCIFEROL, VITAMIN D3, ORAL Take by mouth. Acti ve CLOPIDOGREL BISULFATE, BULK, MISC Take by mouth. Active donepezil HCl (DONEPEZIL ORAL) Take by mouth. Acti ve DULoxetine (CYMBALTA) [address] capsule Take 1 capsule (30 mg total) by mouth 3 (three) times a day. Active ESCITALOPRAM OXALATE ORAL Take by mouth. Active GABAPENTIN ORAL Take 300 mg by mouth 2 (two) times a day. Active LISINOPRIL ORAL Take 20 mg by mouth daily. Active mirabegron (MYRBETRIQ) 50 mg tablet extended release 24 hr 24 hr tablet Take 50 mg by mouth daily. Active tramadol HCl (TRAMADOL ORAL) Take by mouth. Active Active Problems Problem Noted Date Diagnosed Date Weight loss 07/01/2021 Dementia without behavioral disturbance 05/17/20 18 Essential hypertension 05/17/2018 Gastroesophageal reflux disease 05/17/2018 Malignant neoplasm metastatic to bone 05/17/2018 Mixed hyperlipidemia 05/17/2018 Prostate cancer 05/17/2018 Immunizations Name Administration Dates Next Due [employer] (ages 12 & older) PATRICIA S-CoV-2 COVID-19, mRNA, LNP-S, pastora-sucrose, preservative free 12/06/2021 Pfizer SARS-CoV-2 COVID-19, mRNA, LNP-S, preservative free 06/02/2023,12/06/2021,05/23/2021,2020,10/03/2020 Social History Tobacco Use Types Packs/Day Years Used Date Smoking Tobacco: Never Smokeless Tobacco: Never Alcohol Use Standard Drinks/Week Comments Yes 0 (1 standard drink = 0.6 oz pur e alcohol) Sex and Gender Information Value Date Recorded Sex Assigned at Not on file Gender Identity Not on file Sexual Orientation Not on file Obstetrics History Last Filed Vital Signs Vital Sign Reading Time Taken Comments Blood Pressure 131/63 02/15/2024 1:05 PM EDT Sitting Left arm Pulse 62 02/15/2024 1:05 PM EDT Temperature - - Respiratory Rate - - Oxygen Saturation - - Inhaled Oxygen Concentration - - Weight 75.9 kg (167 lb 6.4 oz) 02/15/2024 1:05 PM EDT Height 167.6 cm (5' 6 ) 02/14/2022 1:4 7 PM EDT Body Mass Index 27.02 02/14/2022 1:47 PM EDT Plan of Treatment Upcoming Encounters Date Type Department Care Team (Late st Contact Info) Description 02/13/2025 2:00 PM EDT Office Visit [facility] Hematology Oncology [address] [place] [address] Corina-Estefania Tinsley MD [address] [place] [address] Health Maintenance Due Date Last Done Comments Pneumococcal Vaccine: 65+ Years (1 of 2 - PCV) 1945 Zoster Vaccines (1 of 2) 1958 RSV Immunization Patients 60+ Years Old (1 - 1-dose 75+ series) 2014 Cholesterol Screening (Lipid Panel) 08/01/2022 Depression Screening 08/01/2022 Falls Risk Assessment 08/01/2022 Social Influencers of Health Screening 08/01/2022 Hypertension/CHF/CAD Annual BMP Blood Test 08/21/2022 Medicare Annual Wellness Visit 07/29/2023 07/29/2022 COVID-19 Vaccine ( season) 2024 06/02/2023, 12/06/2021, 12/06/2021, Additional history exists Influenza Vaccine (#1) 2024 3, 05/21/2022, 05/23/2021, Additional history exists DTaP,Tdap,and Td Vaccines (3 - Td or Tdap) 05/05/2032 05/05/2022, 03/15/2020 HIB Vaccines Aged Out No longer eligi ble based on patient's age to complete this topic HPV Vaccines Aged Out No longer eligi ble based on patient's age to complete this topic Hepatitis A Vaccines Aged Out No long er eligible based on patient's age to complete this topic Hepatitis B Vaccines Aged Out No long er eligible based on patient's age to complete this topic IPV Vaccines Aged Out No longer eligi ble based on patient's age to complete this topic MMR Vaccines Aged Out No longer eligi ble based on patient's age to complete this topic Meningococcal ACWY Vaccine Aged Out N o longer eligible based on patient's age to complete this topic RSV Immunization Patients Under 20 months Aged Out No longer eligible based on patient's age to complete this topic Varicella Vaccines Aged Out No longer eligible based on patient's age to complete this topic Care Teams Cosmetic Manager Relationship Specialty Start Date End Date Primitivo Lee MD [address] [place] [address] PCP - General Internal Medicine 05/17/18
== END 2024-09-22 08:16 | disposition home or self-care (01) ==
LOC: HO.HAP 08:15
PROVIDERS: Visit Provider Internal Medicine
DX: Z13.89 Encounter for screening for other disorder (principal)

== ENCOUNTER 2024-11-21 10:50 | Outpatient (REF) | payer SELFPAY ==
--- NOTE | 2024-11-21 11:17 | MHC.AU.HA3 ---
Hearing Instrument Follow-Up- Binaural Date of Visit: 11/21/24 Right Ear: Make, Model, Color, Serial Number: Jordanaak Jackeline P 90-UP SN: [id number] Color: Silver Prado Stable Hand Repair Warranty: 04/14/2025 Stable Hand Loss and Damage Warranty: 04/14/2025 [facility] [place] Service Plan: 04/14/2025 Battery Size: 675 Electronic Maintenance Supervisor/Slim Tube: Earmold/Dome/CShell/SlimTip:[place] Skeleton Type of Wax Guard: Dispensed By: [facility] [place] Date of Fittin01/24/2022 Left Ear: Make, Model, Color, Serial Number: Jordanaak Jackeline P 90-UP SN: [id number] Color: Silver Prado Stable Hand Repair Warranty: 04/14/2025 Stable Hand Loss and Damage Warranty: 04/14/2025 [facility] [place] Service Plan: 04/14/2025 Battery Size: 675 Electronic Maintenance Supervisor/Slim Tube: Earmold/Dome/CShell/SlimTip: Microsonic Skeleton Lock Type of Wax Guard: Dispensed By: [facility] [place] Date of Fittin01/24/2022 Follow-Up Summary: Reynaldo reports his right hearing aid has been weak for about a week. Unsure if it is the hearing aid or wax. Canal is very narrow could not visualize full dimensions of ear canal, pale yellow color noted deep in canal- possible occluding wax. Listening check positive on both aids, here recently for maintenance. Cleaned right and re-tubed for good measure, no notable change. Reynaldo reports using earwafrank CERNA in the past, will try that, has appointment with Dr. Aggarwal in December, he will try to be seen sooner. Recommendations: Recommendations: Hearing instrument follow-up or maintenance as needed. Diagnosis Code(s): Primary Diagnosis: H90.3 Bilateral Sensorineural Hearing Loss Signature: Provider: Nunu Sandhu, [facility]
--- OUTSIDE RECORDS SUMMARY | 2024-11-21 12:17 | XMS_ITS | Clinical Summary ---
Author Organization [facility] Address [address] [place] [address] Care Team Providers Care Corporate Training Manager Name Role Phone Unavailable Primary Care [...]
--- OUTSIDE RECORDS SUMMARY | 2024-11-21 12:17 | XMS_ITS | Clinical Summary ---
Author Organization [facility] Address [address] [place] [address] Care Team Providers Care Probate Lawyer Name Role Phone Primitivo Lee MD Primary Care Provider +1- [phone] Allergies No known active allergies Medications Medication [...] age to complete this topic Care Teams Probate Lawyer Relationship Specialty Start Date End Date Primitivo Lee MD PCP - General Internal Medicine 05/12/18
--- OUTSIDE RECORDS SUMMARY | 2024-11-21 12:17 | XMS_ITS | Clinical Summary ---
Author Organization [facility] Address [address] [place] [address] Care Team Providers Care Ui Developer Designer Name Role Phone Primitivo Lee MD Primary Care Provider Allergies No known active allergies Medications ACETAMINOPHEN ORAL Take by mouth. Active ASCORBIC ACID, VITAMIN C, ORAL Take by mouth. Active atorvastatin calcium (ATORVASTATIN ORAL) Take by mouth. Active CHOLECALCIFEROL , VITAMIN D3, ORAL Take by mouth. Active CLOPIDOGREL BISULFATE, BULK, MISC Take by mouth. Active donepezil HCl (DONEPEZIL ORAL) Take by mouth. Active DULoxetine (CYMBALTA) [address] capsule Take [...] 05/17/2018 Immunizations Name Administration Dates Next Due [employer] (ages 12 & older) PATRICIA S-CoV-2 COVID-19, [...] Recorded Sex Assigned at Not on file Legal Sex Male 5:52 PM EST Gender Identity Not on file Sexual Orientation [...] Description 02/13/2025 2:00 PM EDT Office Visit [facility] Hematology Oncology [address] [place] [address] Estefania Ritchie MD [address] [place] [phone] Health Maintenance Due Date Last Done Comments Pneumococcal Vaccine: 50+ Years (1 of 2 - PCV) 1958 Zoster Vaccines (1 of 2) 1958 RSV [...] patient's age to complete this topic Meningococcal B Vacine Aged Out No lo nger eligible based on patient's age to complete this topic RSV Immunization Patients Under 20 months Aged Out No longer eligible based on patient's age to complete this topic Varicella Vaccines Aged Out No longer eligible based on patient's age to complete this topic Insurance [facility] [facility] [place] Care Teams Ui Developer Designer Relationship Specialty Start Date End Date Primitivo Lee MD [address] [place] [address] PCP - General Internal Medicine 05/17/18
== END 2024-11-21 10:51 | disposition home or self-care (01) ==
LOC: HO.HAP 10:50
PROVIDERS: Visit Provider Internal Medicine
DX: Z13.89 Encounter for screening for other disorder (principal)

== ENCOUNTER 2025-02-20 09:23 | Outpatient (AMB) | payer MEDICARE, OTHER, SELFPAY ==
--- NOTE | 2025-02-20 09:24 | A.OFFVIS_ITS ---
Vital Signs 02/20/25 09:25 Height 5 ft 6 in Weight 175 lb BMI 28.2 BP 151/65 H Blood Pressure Location Lt brachial Position Sitting Respiration 16 Pulse 57 Pulse Source Pulse Oximeter Pulse Oximetry (%) 96 Oxygen Delivery Method Room Air Intake Visit Reasons: Back Pain Bioinformatics Assistant Required: No Allergies No Known Allergies Allergy (Verified 02/20/25 09:26) Medication List - Last Reconciled 02/20/25 by Angelika Rob LPN atorvastatin 80 mg PO DAILY clopidogrel mg PO diphth,pertus(acell),tetanus (Boostrix Tdap) mL IM donepezil 10 mg PO DAILY duloxetine 90 mg PO DAILY ezetimibe mg PO gabapentin mg PO lisinopril mg PO omeprazole 20 mg PO DAILY tramadol 50 - 100 mg PO QID PRN HPI HPI Back Pain: Details: History of Present Illness The patient is an 84-year-old male presenting with chronic pain management needs. He previously experienced significant relief from a temporary nerve stimulator, but the effect lasted about six months. He wants to repeat PNS but I offered RFA as an alternative instead to see if it might give more longer term relief. The patient has had two positive diagnostic lumbar medial branch blocks, meeting the criteria for lumbar radiofrequency ablation. Pain Description - Location: Right lower back - Duration: Years - Quality: Chronic pain - Management: Tramadol twice daily, insufficient relief - Previous intervention: Temporary nerve stimulator with six months of relief 04/07/24: Bilateral diagnostic L3-L4-L5 MBB: 80% relief for 2 days. 03/10/24: Lumbar Medial Branch Block, bilateral L3, L4 medial branches and L5 Dorsal Ramus (2 levels, 3 nerves): 80% relief. Physical Exam - Appears afebrile. - Alert and oriented. - Mood and affect appropriate. - Follows and participates in conversation appropriately. - Respiratory effort is unlabored. - Able to transition from sit to stand unassisted. - Ambulates with bilaterally normal heel strike and toe off. - Able to stand and walk on toes and heels. Pain Management - Analgesia: Tramadol twice daily, insufficient relief - Activities of Daily Living: Pain impacts daily activities, seeking better management Physical Exam Vital Signs: Last Vital Signs Pulse 57 02/20/25 09:25 Resp 16 02/20/25 09:25 BP 151/65 H 02/20/25 09:25 Pulse Ox 96 02/20/25 09:25 Oxygen Delivery Method Room Air 02/20/25 09:25 BMI result Body Mass Index 28.2 Assessment & Plan Assessment & Plan (1) Lumbar spondylosis: Code(s): M47.816 - Spondylosis without myelopathy or radiculopathy, lumbar region Category: Medical Plan Plan - Plan to proceed with lumbar radiofrequency ablation L3, L4 medial branches, L5 DR on the right side after obtaining insurance authorization. - Consideration of alternative treatments if radiofrequency ablation does not provide sufficient relief. Patient was informed and verbally consented to the use of an ambient scribe for clinic note documentation during this visit. Discussion Notes I discussed with the patient the option of lumbar radiofrequency ablation, given his previous positive response to diagnostic lumbar medial branch blocks. We reviewed the potential benefits and the need for insurance authorization before proceeding. The patient expressed understanding and agreement with the plan. Patient Instructions - Await contact for scheduling lumbar radiofrequency ablation after insurance approval. - Continue current pain management regimen until further notice. Coding Level of Care Code Est Pt Level 3 (84638) Diagnoses Lumbar spondylosis M47.816
[2025-02-20 09:25] VITALS: BP 151/65; PULSE 57; RESP 16; O2SAT 96; BMI 28.2
--- OUTSIDE RECORDS SUMMARY | 2025-02-20 09:41 | XMS_ITS | Clinical Summary ---
Author Organization [facility] Address [address] [place] [address] Phone Care Team Providers Care Bearing Grinder Name Role Phone Primitivo Lee MD Primary [...] Active Problems Problem Noted Date Diagnosed Date Hot flashes 02/13/2025 Weight loss 07/01/2021 Dementia without behavioral disturbance ([facility]/HCC V24, CMS/[facility] V28) 05/17/2018 Essential hypertension 05/17/2018 Gastroesophageal reflux disease 05/17/2018 Malignant neoplasm metastati c to bone ([facility]/HCC V24, [facility] V28) 05/17/2018 Mixed hyperlipidemia 05/17/2018 Prostate cancer ([facility] V24, [facility] V28) 05/17 Encounters Date Type Department Care Team Description 02/13/2025 2:00 PM EDT Office Visit [facility] Hematology Oncology [address] [place] [phone] Estefania Ritchie MD Prostate cancer ([facility] V24, [facility] V28) (Primary Dx); Malignant neoplasm metastatic to bone ([facility] V24, [facility] V28); Weight loss; Hot flashes from Last 3 Months Immunizations Name Administration Dates Next Due [employer] (ages 12 & older) PATRICIA S-CoV-2 COVID-19, mRNA, LNP-S, pastora-sucrose, preservative free 12/06/2021 Pfizer SARS-CoV-2 COVID-19, mRNA, LNP-S, preservative free 06/02/2023,12/06/2021,05/23/2021,2020,10/03/2020 Social History Tobacco Use Types Packs/Day Years Used Date Smoking Tobacco: Never Smokeless Tobacco: Never Tobacco Cessation:Counseling Given: Not Answered Alcohol Use Standard Drinks/Week Comments Yes 0 (1 standard drink = 0.6 oz pur e alcohol) Sex and Gender Information Value Date Recorded Sex Assigned at Not on file Legal Sex Male 5:52 PM EST Gender Identity Not on file Sexual Orientation Not on file Obstetrics History Last Filed Vital Signs Vital Sign Reading Time Taken Comments Blood Pressure 138/60 02/13/2025 2:06 PM EDT Pulse 65 02/13/2025 2:06 PM EDT Temperature 36.1 C (97 F) 02/13/2025 2:06 PM EDT Respiratory Rate - - Oxygen Saturation 98% 02/13/2025 2:06 PM EDT Inhaled Oxygen Concentration - - Weight 80.7 kg (178 lb) 02/13/2025 2:06 PM EDT Height 167.6 cm (5' 6 ) 02/13/2025 2:06 PM EDT Body Mass Index 28.73 02/13/2025 2:06 PM EDT Plan of Treatment Upcoming Encounters Date Type Department Care Team (Late st Contact Info) Description 02/14/2026 2:15 PM EDT Office Visit [facility] Hematology Oncology [address] [place] [phone] Estefania Ritchie MD [address] [place] [phone] Health Maintenance Due Date Last Done Comments Diabetes: Annual GFR (Glomerular Filtration Rate) 1939 Diabetes: Annual Foot Exam 1949 Diabetes: Annual Retina Eye Exam 1949 Hepatitis A Vaccines (1 of 2 - Risk 2-dose series) 1958 Hepatitis B Vaccines (1 of 3 - Risk 3-dose series) 1999 Cholesterol Screening (Lipid Panel) 08/01/2022 Depression Screening 08/01/2022 Falls Risk Assessment 08/01/2022 Social Influencers of Health Screening 08/01/2022 Hypertension/CHF/CAD Annual BMP Blood Test 08/21/2022 Medicare Annual Wellness Visit 07/29/2023 07/29/2022 COVID-19 Vaccine (9 - Pfizer risk season) 2024 05/03/2024, 06/02/2023, 05/21/2022, Additional history exists Diabetes: Annual Urine Albumin-Creatinine Ratio (uACR) 02/14/2025 Diabetes: Blood Sugar Control Test (HGBA1C) 02/14/2025 DTaP,Tdap,and Td Vaccines (6 - Td or Tdap) 01/28/2035 01/28/2025, 06/02/2023, 05/05/2022, Additional history exists Zoster Vaccines Completed 01/11/2019, 10/15/2018 RSV Immunization Adult Patients Completed 05/03/2024, 05/22/2023 Influenza Vaccine Completed 05/13/2024, , 05/21/2022, Additional history exists Pneumococcal Vaccine: 50+ Years Completed 02/10/2025, 06/20/2014, 01/22/2005 HIB Vaccines Aged Out No longer eligi [...] age to complete this topic Meningococcal B Vaccine Aged Out No l onger eligible based on patient's age to complete this topic RSV Immunization Patients Under 20 months Aged Out No longer eligible based on patient's age to complete this topic Varicella Vaccines Aged Out No longer eligible based on patient's age to complete this topic Insurance [facility] Care Teams Bearing Grinder Relationship Specialty Start Date End Date Primitivo Lee MD [address] [place] [address] PCP - General Internal Medicine 05/17/18
== END 2025-02-20 09:58 | disposition home or self-care (01) ==
PROVIDERS: PCP Internal Medicine; Visit Provider Internal Medicine
DX: M47.816 Spondylosis without myelopathy or radiculopathy, lumbar region (principal)
CPT/HCPCS: 99213

== ENCOUNTER → 2025-02-20 09:23 | Outpatient (BNVA) | payer MEDICARE, OTHER, SELFPAY | PROVIDERS: PCP Internal Medicine; Visit Provider Internal Medicine | DX: M54.59 Other low back pain (principal); M47.816 Spondylosis without myelopathy or radiculopathy, lumbar region; Z79.891 Long term (current) use of opiate analgesic | CPT/HCPCS: 99212 ==

== ENCOUNTER 2025-02-21 13:43 | Outpatient (REF) | payer MEDICARE, OTHER, SELFPAY ==
--- OUTSIDE RECORDS SUMMARY | 2025-02-21 14:53 | XMS_ITS | Clinical Summary ---
Author Organization [facility] Address [address] [place] [address] Phone Care Team Providers Care Giving Officer Name Role Phone Primitivo Lee MD Primary [...] Weight loss 07/01/2021 Dementia without behavioral disturbance ([facility]/HCC V24, [facility] V28) 05/17/2018 Essential hypertension 05/17/2018 Gastroesophageal reflux disease 05/17/2018 Malignant neoplasm metastati c to bone ([facility]/HCC V24, [facility] V28) 05/17/2018 Mixed hyperlipidemia 05/17/2018 Prostate cancer ([facility] V24, [facility] V28) 05/17 Encounters Date Type Department Care Team Description 02/13/2025 2:00 PM EDT Office Visit [facility] Hematology Oncology [address] [place] [phone] Estefania Ritchie MD Prostate cancer ([facility] V24, [facility] V28) (Primary Dx); Malignant neoplasm metastatic to bone ([facility] V24, [facility] V28); Weight loss; Hot flashes from Last [...] Description 02/14/2026 2:15 PM EDT Office Visit [facility] Hematology Oncology [address] [place] [phone] Estefania Ritchie MD [address] [place] [phone] Health Maintenance Due Date Last Done [...] Diabetes: Blood Sugar Control Test (HGBA1C) 02/14/2025 Influenza Vaccine (#1) 2025 , 05/22/2023, 05/21/2022, Additional history exists DTaP,Tdap,and Td Vaccines (6 - Td or Tdap) 01/28/2035 01/28/2025, 06/02/2023, 05/05/2022, Additional history exists Zoster Vaccines Completed 01/11/2019, 10/15/2018 RSV Immunization Adult Patients Completed 05/03/2024, 05/22/2023 Pneumococcal Vaccine: 50+ Years Completed 02/10/2025, 06/20/2014, [...] to complete this topic Insurance [facility] [place] Care Teams Giving Officer Relationship Specialty Start Date End Date Primitivo eLe MD [address] [place] [address] PCP - General Internal Medicine 05/17/18
--- OUTSIDE RECORDS SUMMARY | 2025-02-21 14:53 | XMS_ITS | Clinical Summary ---
Author Organization [facility] Address [address] [place] [address] Care Team Providers Care Redye Hand Name Role Phone Unavailable Primary Care Provider Unavailabl e Social History Tobacco Use Types Packs/Day Years Used Date Smoking Tobacco: Never Assessed Sex and Gender Information Value Date Recorded Sex Assigned at Not on file Legal Sex Male 1:56 PM EDT Gender Identity Not on file Sexual Orientation [...]
--- OUTSIDE RECORDS SUMMARY | 2025-02-21 14:53 | XMS_ITS | Data Portability ---
Author Organization [place] - [facility] Address [address] [address] Care Team Providers Care Hemodialysis Charge Nurse Name Role Phone CIRO KING Primary Care Provider [facility] Vp Data Assessment Encounter Date Assessment Date Assessment LastModified by Organization Details LastModified Time 02/14/2025 02/14/2025 Patient with bilateral progressive sensorineural hearing loss who has been found to meet the audiologic candidacy criteria for cochlear implantation in both ears. CT scan of the temporal bones today was somewhat degraded by motion, but there is enough information on the scan and physical to have ruled out any anatomic contraindication to cochlear implantation in either ear. Today I spoke with the patient and his at length. We discussed the risks, benefits, and complications associated with cochlear implantation, including the risks of bleeding, infection, CSF leak, temporary or permanent facial nerve paralysis or paresis, delayed facial paresis, long-term risk of meningitis, and risk for device failure or need for device removal or replacement. We discussed that while every effort will be made to preserve residual hearing in the implanted ear, there is a chance that any residual hearing may go down or deteriorate over time. We discussed the importance of keeping up-to-date Prevnar 20 vaccine to reduce the long-term risk of meningitis. After full discussion, the patient would like to go ahead and proceed with implantation. We will be implanting the right ear with the Quantapore CI 632implant. After full discussion, the patient would like to proceed with surgery. I have provided patient with the contact information for my certified surgical technician. We will begin the scheduling process and see the patient back at the time of surgery. Patient will require medical clearance from their primary care provider preoperatively. [email or web address] Not available 02/14/2025 13:16:07 Plan of Treatment Reminders Order Date Submit Date Provider Last Modified By Organization Details Last Modified Time Details Appointments SURGERY 120 2024 02:00P M ROBERT CLEMENTE MD Not available Not available Not available Post Op 2024 03:45P M MEGHAN MENG PA-C Not available Not available Not available Post Op 2024 01:50P M ROBERT CLEMENTE MD Not available Not available Not available Lab None recorded. Referral None recorded. Procedures None recorded. Surgeries cochlear device implantat ion (SURG) 2024 025 [email or web address] Not available 02/14/2025 14:01:45 Imaging None recorded. Medication Orders None recorded. Patient TargetsNo targets recorded. Patient InstructionsNo instructions recorded. Reason for Referral None Reported. Results Created Date Observation Date Name Description Value Unit Range Abnormal Flag Note LastModifiedBy Organization Detail LastModifiedTime 02/07/2002/01/2025 cochl ear impla nt deter minat ion form* No observ ation record ed. [email or web address] Not Available 2024 13:14:35 02/07/20 25 02/01/2025 audio gram No observ ation record ed. [email or web address] Not Available 01/22 10:48:15 02/07/20 25 11/21/2024 audio gram No observ ation record ed. [email or web address] Not Available 01/22 10:49:26 02/07/20 25 04/04/2024 audio gram No observ ation record ed. [email or web address] Not Available 01/22 10:50:20 02/15/20 25 02/01/2025 audio gram No observ ation record ed. [email or web address] Not Available 01/23 11:38:09 02/15/20 25 11/21/2024 audio gram No observ ation record ed. [email or web address] Not Available 01/23 11:39:21 02/15/20 25 04/04/2024 audio gram No observ ation record ed. [email or web address] Not Available 01/23 11:43:41 02/21/20 25 02/14/2025 CT, tempo ral bone, w/o contr ast No observ ation record ed. [email or web address] [facility] [address] [facility] 100, [place], [address], 02/20/2025 12:27:59 Result Notes None recorded. Problems Name Problem SNOMED Code Status Onset Date Resolution Date Notes Provider Name and Address Organization Details Recorded Time Sensorineural hearing loss of bilateral ears [id number] Active 2024 ROBERT CLEMENTE MD 100 [facility] 100, [place], [address], [facility] 21:40:47 Problem Notes None recorded. Procedures Surgical History Date Name Laterality Status Provider Name and Address Organization Details Recorded Time CT temporal bones - Xoran completed ROBERT CLEMENTE MD [address] [address], [place], [address], [facility] 02/14/2025 13:13:56 Imaging Results None recorded. Procedure Notes None recorded. Medical Equipment None Reported. Allergies No known drug allergies Medications Name Sig Start Date Stop Date Status Note LastModified by Organization Details LastModified Time atorvastati n 80 mg tablet Take 1 tablet every day by oral route. active Not Available Not Available No t Available donepezil 10 mg tablet Take 1 tablet every day by oral route. active Not Available Not Available No t Available gabapentin 400 mg capsule TAKE 1 CAPSULE BY MOUTH TWICE DAILY active Not Available Not Available No t Available clopidogrel 75 mg tablet Take 1 tablet every day by oral route. active Not Available Not Available No t Available tramadol 50 mg tablet TAKE 2 TABLETS BY MOUTH every 6 hours NEEDED FOR SEVERE PAIN active Not Available Not Available No t Available ketorolac 0.5 % eye drops Administe r 1 drop into left eye four times daily. 02/14 completed Not Available Not Available Not Available prednisolon e acetate 1 % eye drops,suspe nsion INSTILL 1 DROP IN THE right EYE 4 TIMES DAILY 02/14 completed Not Available Not Available Not Available Vitamin C 1,000 mg tablet Take by oral route. active Not Available Not Available No t Available cephalexin 500 mg capsule TAKE 1 CAPSULE BY MOUTH 4 TIMES DAILY FOR 7 DAYS 02/14 completed Not Available Not Available Not Available omeprazole 20 mg capsule,del ayed release Take 1 capsule every day by oral route. active Not Available Not Available No t Available azelastine 137 mcg (0.1 %) nasal spray instill 1 SPRAY IN BOTH nostrils TWICE DAILY 02/14 completed Not Available Not Available Not Available ipratropium bromide 42 mcg (0.06 %) nasal spray instill 1 SPRAY IN EACH nostril TWICE DAILY 02/14 completed Not Available Not Available Not Available lisinopril 40 mg tablet Take 1 tablet every day by oral route. active Not Available Not Available No t Available fluticasone propionate 50 mcg/actuati on nasal spray,suspe nsion instill 2 SPRAYS IN EACH nostril DAILY. shake WELL BEFORE using active Not Available Not Available No t Available ezetimibe 10 mg tablet Take 1 tablet every day by oral route. active Not Available Not Available No t Available Vitamin D3 25 mcg (1,000 unit) tablet Take by oral route. active Not Available Not Available No t Available duloxetine 60 mg capsule,del ayed release Take 1 capsule every day by oral route. active Not Available Not Available No t Available Vitals Date Recorded Body height Body mass index (BMI) Body weight Provider Name and Address Organization Details Last Updated DateTime 02/14/2025 167.64 cm 28.7 kg/m2 95847.44 g Mraleni Zamudio [place] - [facility] 02/14/2025 13:18:38 Social History None recorded. Functional Status None recorded. Mental Status None recorded. Family History Nothing Reported. Medical History Condition Response Arthritis Y Hearing Loss Y High Cholesterol Y Sleep Disorder Y GERD/Reflux Y Cancer Y Stroke Y Hypertension Y Past Encounters Encounter ID Performer Location Encounter Start Date Encounter Closed Date Diagnosis/Indication Diagnosis SNOMED-CT Code Diagnosis ICD10 Code Diagnosis Note [id number] ROBERT CLEMENTE MD [facility] [address] [address] 02/14/2025 12:52:53 02/14/2025 13:39:04 Sensorineural hearing loss of bilateral ears [id number] H90.3 Health Concerns Section Related Observation LastModified by Organization Detai ls LastModified Time None Recorded Concern Status LastModified by Organization Details LastModified Time None Recorded Advance Directives Directive None Recorded Payers Insurance Date Sequence Insurance Name Policy Number Policy [employer]ap[employer] Covered Member ID Zapata Member ID Guarantor Name 02/14/[address] [facility] (MEDICARE REPLACEMENT HMO) Reynaldo Momin [id number] Reynaldo Garciael 02/14/2025 1 MEDICARE B-DC: [facility] [employer] Reynaldo Momin [id number] Reynaldo Garciael Notes Date Note Type Note Provider Name and Address Organization Details Recorded Time 02/14/2025 text/html 84-year-old male referred by Dr. Aggarwal for evaluation of severe hearing loss. He has used amplification technology for over 20 years but recently noted poor auditory results despite the use of high-quality amplification. Patient relies on lipreading for communication. He recently underwent formal audiologic cochlear implant evaluation at the [facility] cochlear implant program and was found to meet the audiologic candidacy criteria for cochlear implantation in both ears. He expressed interest in implantation of the right ear. Patient comes in today accompanied by his . Patient reports that he just recently got his Prevnar 20 vaccine ROBERT CLEMENTE MD [address] [place] [address], [place], [address], [facility] - [facility] 02/14/2025 13:38:50
--- OUTSIDE RECORDS SUMMARY | 2025-02-21 14:53 | XMS_ITS | Clinical Summary ---
Author Organization [facility] Address [address] [place] [address] Care Team Providers Care Hose Finisher Name Role Phone Primitivo Lee MD Primary Care Provider [phone]- [phone] Allergies No known active allergies Medications Medication [...] 62 02/15/2024 1:05 PM EDT Temperature 36.2 C (97.2 F) 02/15/2024 1:05 PM EDT Respiratory Rate - - Oxygen Saturation 97% [...] 12/06/2021, 05/23/2021, Additional history exists Influenza Vaccine (Season Ended) 2025 05/22/2023, 05/21/2022, 05/23/2021, Additional history exists Pneumococcal Vaccine Completed 06/20/2014, 01/23/20 Shingrix-Zoster Vaccine Completed 01/11/2019, 10/15 RSV Adult > 60+ Yrs or Completed 05/22/2023 Hepatitis B Vaccines Aged Out No long er eligible based on patient's age to complete this topic RSV Ped < 20 months Aged Out No longe r eligible based on patient's age to complete this topic Care Teams Hose Finisher Relationship Specialty Start Date End Date Primitivo Lee MD PCP - General Internal Medicine 05/12/18
== END 2025-02-21 13:44 | disposition home or self-care (01) ==
LOC: HO.HAP 13:43
PROVIDERS: Visit Provider Internal Medicine
DX: Z13.89 Encounter for screening for other disorder (principal)

== ENCOUNTER 2025-04-13 06:09 | Outpatient (REF) | payer MEDICARE, OTHER, SELFPAY ==
--- NOTE | ~2025-04-13 | FL_ITS ---
EXAMINATION: XR FLUOROSCOPY WITH IMAGES CLINICAL INFORMATION: Lumbar pain management procedure. COMPARISON: None available. TECHNIQUE: Fluoroscopy provided to: Dr. Beck Fluoroscopy time: 31.9 seconds DAP: 1.2484 Gycm2 Images: 3 FINDINGS: 3 fluoroscopic images of the lateral lumbar spine during pain management procedure. Please refer to the full operative report for details. FL/FL guidance in treatment room IMPRESSION: Fluoroscopic guidance. Electronically signed by: Napoleon Colby MD 04/14/2025 08:46 AM EDT
--- OUTSIDE RECORDS SUMMARY | 2025-04-13 06:12 | XMS_ITS | Clinical Summary ---
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 ([facility]/HCC V24, [facility] V28) 05/17/2018 Mixed hyperlipidemia 05/17/2018 Prostate cancer ([facility] V24, [facility] V28) 05/17 Encounters Date Type Department Care Team Description 02/13/2025 2:00 PM EDT Office Visit [facility] [address] [place] [phone] Estefania Ritchie MD Prostate cancer [place] [place] [facility] [place] (Primary Dx); Malignant neoplasm metastatic to bone [place] [place] [facility] [place] Weight loss; Hot [...] Description 02/14/2026 2:15 PM EDT Office Visit [facility] [address] [place] [phone] Estefania Ritchie MD [address] [place] [phone] Health Maintenance Due Date Last Done Comments Diabetes: Annual GFR (Glomerular Filtration Rate) 1939 Diabetes: Annual Foot Exam 1949 Diabetes: Annual Retina Eye Exam 1949 Hepatitis A Vaccines (1 of 2 - Risk 2-dose series) 1958 Hepatitis B Vaccines (1 of 3 - Risk 3-dose series) 1999 Cholesterol Screening (Lipid Panel) 08/01/2022 Falls Risk Assessment 08/01/2022 Social Influencers of Health Screening 08/01/2022 Hypertension/CHF/CAD Annual BMP Blood Test 08/21/2022 Medicare Annual Wellness Visit 07/29/2023 07/29/2022 Depression Screening 08/24/2024 COVID-19 Vaccine (9 - Pfizer risk season) [...] to complete this topic Insurance MEDICARE [place] [place] Care Teams Semiconductor Wafers Saw Operator Relationship Specialty Start Date End Date Primitivo Lee MD [address] [place] [address] PCP - General Internal Medicine 05/17/18
--- OUTSIDE RECORDS SUMMARY | 2025-04-13 06:12 | XMS_ITS | Clinical Summary ---
Author Organization [facility] Address [address] [place] [address] Care Team Providers Care Bioinformatics Engineer Name Role Phone Primitivo Lee MD Primary Care Provider [phone]- [phone] Allergies No known active allergies Medications Medication [...] 05/23/2021, Additional history exists Influenza Vaccine (#1) 2025 , 05/21/2022, 05/23/2021, Additional history exists Pneumococcal Vaccine Completed 06/20/2014, 01/23/20 Shingrix-Zoster Vaccine Completed 01/11/2019, 10/15 RSV Adult > 60+ Yrs or Completed 05/22/2023 Hepatitis B Vaccines Aged Out No long er eligible based on patient's age to complete this topic RSV Ped < 20 months Aged Out No longe r eligible based on patient's age to complete this topic Care Teams Bioinformatics Engineer Relationship Specialty Start Date End Date Primitivo Lee MD PCP - General Internal Medicine 05/12/18
--- OUTSIDE RECORDS SUMMARY | 2025-04-13 06:12 | XMS_ITS | Clinical Summary ---
Author Organization [facility] Address [address] [place] [address] Care Team Providers Care Seal Mixing Operator Name Role Phone Unavailable Primary Care Provider [...] - 1-dose 75+ series) 2014 COVID-19 Vaccine ( - 2023-2 5 season) 2024 Hepatitis B Vaccines Aged Out No long er eligible based on patient's age to complete this topic
== END 2025-04-13 06:10 | disposition home or self-care (01) ==
LOC: CF 06:09
PROVIDERS: Visit Provider Internal Medicine
DX: M47.816 Spondylosis without myelopathy or radiculopathy, lumbar region (principal)
CPT/HCPCS: 64635; 64636; J2003; J2795

== ENCOUNTER 2025-04-13 10:37 | Outpatient (AMB) | payer MEDICARE, OTHER, SELFPAY ==
--- NOTE | 2025-04-13 10:50 | A.OFFVIS_ITS ---
Vital Signs 04/13/25 10:52 04/13/25 11:37 04/13/25 12:21 Height 5 ft 6 in 5 ft 6 in Weight 175 lb 175 lb BMI 28.2 28.2 BP 149/60 H 144/68 H Blood Pressure Location Lt brachial Lt brachial Lt brachial Position Sitting Sitting Sitting Respiration 16 16 Pulse 70 69 Pulse Source Pulse Oximeter Pulse Oximeter Pulse Oximeter Pulse Oximetry (%) 95 96 Oxygen Delivery Method Room Air Room Air Room Air Comment Post-Op Intake Visit Reasons: Right L3-L4-L5 RFA/ valium & oxy Allergies No Known Allergies Allergy (Verified 04/13/25 12:22) HPI HPI Right L3-L4-L5 RFA/ valium & oxy: Details: Patient presents for scheduled procedure. Denies any recent cough, cold, infection, fever or other significant changes in medical history since last office visit. Physical Exam Vital Signs: Last Vital Signs Pulse 70 04/13/25 10:52 Resp 16 04/13/25 10:52 BP 149/60 H 04/13/25 10:52 Pulse Ox 95 04/13/25 10:52 Oxygen Delivery Method Room Air 04/13/25 11:37 BMI result Body Mass Index 28.2 Office Procedures Details: Radiofrequency lesioning medial branch nerves, Right L3, L4 medial branches and L5 dorsal ramus (L4/5 and L5/S1) (2 levels, 3 nerves) After obtaining written consent, pre-procedure blood pressure and heart rate were stable and recorded in the nursing record. Standard monitors were applied. The patient was placed in the prone position. The lumbar area was prepped with chloraprep and draped in sterile fashion. The skin over the target for each medial branch nerve was anesthetized with 0.5% lidocaine. An 18 gauge radiofrequency cannula was advanced to each target site under fluoroscopic guidance. No paresthesias were elicited with needle placement and aspiration was negative for heme and CSF. Impedences were verified under 600 ohms. Motor testing (2 Hz) confirmed needle placement at each site within the appropriate voltage thresholds. Each site was injected with 0.5 ml 2% preservative-free lidocaine. Radiofrequency lesioning was performed for 90 seconds at 80 deg Celcius. Each site was then injected with 0.5ml 2% lidocaine. The needle was removed, skin cleansed and a sterile bandage was applied. The patient tolerated the procedure well and no complications were encountered. Following the procedure the patient's vital signs were stable. The patient was discharged home in good condition with post-procedural instructions. Time Out: Immediately prior to the procedure, the following was verbally confirmed that there is a signed consent form and that the correct patient, planned procedure, site and side are consistent with documentation and that necessary equipment and/or blood products are available prior to the start of the case. Complications: none EBL: <5 cc 16701 - RFA Lumbar Medial Branches 04166 - Lumbar Medial Branches ADDNL Procedure code (CPT) selection complete Office Meds lidocaine (PF) 10 mg/mL (1 %) injection solution Performing Provider: Mary Kate Dill APRN, CNP Performing Location: [facility] Administered by: Jayden Beck MD on 04/13/25 12:52 Dose Route Admin Location Dispensed Lot Number Expiration Date NDC [employer] 10 mL subcut 10 mL Total Dispensed Waste 10 mL 0 % Assessment & Plan Assessment & Plan (1) Lumbar spondylosis: Code(s): M47.816 - Spondylosis without myelopathy or radiculopathy, lumbar region Category: Medical Plan Patient is status post right L3, L4 medial branches and L5 dorsal ramus radiofrequency ablation. Patient tolerated procedure well and was discharged home in stable condition with discharge instructions. All questions were answered. We will follow-up via telephone or in clinic to assess response to therapy. A follow-up appointment was made during today's visit. Orders: Orders FL guidance in treatment room Today M47.816 - Spondylosis without myelopathy or radiculopathy, lumbar region AMB RFA Radiofrequency Ablation Pain Management Today M47.816 - Spondylosis without myelopathy or radiculopathy, lumbar region Coding Level of Care Code Procedure Only Diagnoses Lumbar spondylosis M47.816 CPT Codes Radiofrequency Ablation - Rad-Ablation 3: 19925 - RFA Lumbar Medial Branches ([id number]) Radiofrequency Ablation - Rad-Ablation 4: 04855 - Lumbar Medial Branches ADDNL ([id number])
[2025-04-13 10:52] VITALS: BP 149/60; PULSE 70; RESP 16; O2SAT 95; BMI 28.2
--- OUTSIDE RECORDS SUMMARY | 2025-04-13 12:08 | XMS_ITS | Encounter Summary ---
Author Organization [facility] Address [address] [place] [address] Care Team Providers Care Office Clin Asst Name Role Phone Primitivo Lee Primary Care Provider Gagandeep cadet Encounter Details Date Type Department Care Team Description 08/04/2018 Release of Information Medical Records [address] [place] [address] [place], Provider Social History Tobacco Use Types Packs/Day Years Used Date Smoking Tobacco: Never Smokeless Tobacco: Never Alcohol Use Standard Drinks/Week Comments Yes 0 (1 standard drink = 0.6 oz pur e alcohol) socially Sex Assigned at Date Recorded Not on file documented as of this encounter Plan of Treatment Not on file documented as of this encounter Visit Diagnoses Not on filedocumented in this encounter Care Teams Office Clin Asst Relationship Specialty Start Date End Date Primitivo Lee PCP - General Internal Medicine 05/17/18 documented as of this encounter
[2025-04-13 12:21] VITALS: BP 144/68; PULSE 69; RESP 16; O2SAT 96; BMI 28.2
== END 2025-04-13 12:21 | disposition home or self-care (01) ==
LOC: HO.PMCPRC 10:37
PROVIDERS: Visit Provider Internal Medicine
DX: M47.816 Spondylosis without myelopathy or radiculopathy, lumbar region (principal)
CPT/HCPCS: 64635; 64636

== ENCOUNTER 2025-04-26 13:54 | Outpatient (REF) | payer MEDICARE, OTHER, SELFPAY ==
--- NOTE | 2025-04-26 14:21 | MHC.AU.HA3 ---
Hearing Instrument Follow-Up- Binaural Date of Visit: 04/26/25 Right Ear: CI Make, Model, Color, Serial Number: Andrea Marlowida P 90-UP SN: [id number] Color: Silver [employer] Renewals Representative Repair Warranty: 04/14/2025 Renewals Representative Loss and Damage Warranty: 04/14/2025 [facility] Service Plan: 04/14/2025 Battery Size: 675 Earmold/Dome/CShell/SlimTip:[place] Skeleton Dispensed By: [facility] Date of Fittin01/24/2022 Left Ear: Make, Model, Color, Serial Number: Andrea Marlowida P 90-UP SN: [id number] Color: Silver [employer] Renewals Representative Repair Warranty: 04/14/2025 Renewals Representative Loss and Damage Warranty: 04/14/2025 [facility] Service Plan: 04/14/2025 Battery Size: 675 Earmold/Dome/CShell/SlimTip: Microsonic Skeleton Lock Dispensed By: [facility] Date of Fittin01/24/2022 Follow-Up Summary: Picking up hearing aids back from repair/ end of warranty check. Reynaldo forgot to bring the right loaner so he only returned the left loaner today. He will return to drop off the right loaner. Cleaned and re-tubed Reynaldo's left earmold and placed it on his left hearing aid. Gave Reynaldo his right hearing aid and advised to store safely so that it could be used as a back up if needed. Reynaldo reports doing well following recent CI surgery on the right side, reports he is happy with the CI so far. Service plan recently , did not charge today as the aids have been waiting in the drawer for him to leaf size picker since February. Recommendations: Recommendations: Hearing instrument follow-up or maintenance as needed. Recommendations (Other): Drop off right loaner hearing aid to front office director. Diagnosis Code(s): Primary Diagnosis: H90.3 Bilateral Sensorineural Hearing Loss Signature: Provider: Nunu Sandhu, [facility]
--- OUTSIDE RECORDS SUMMARY | 2025-04-26 16:04 | XMS_ITS | Clinical Summary ---
Author Organization [facility] Address [address] [place] [address] Care Team Providers Care Flower Machine Operator Name Role Phone Primitivo Lee MD Primary Care Provider [phone]- [phone] Allergies No known active allergies Medications Medication [...] Risk Assessment 2004 COVID-19 Vaccine ( season) 2025 06/02/2023, 12/06/2021, 05/23/2021, Additional history exists Influenza [...] age to complete this topic Care Teams Flower Machine Operator Relationship Specialty Start Date End Date Primitivo Lee MD PCP - General Internal Medicine 05/12/18
--- OUTSIDE RECORDS SUMMARY | 2025-04-26 16:04 | XMS_ITS | Clinical Summary ---
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 Hematology Oncology [address] [place] [phone] Estefania Ritchie MD Prostate cancer ([facility] V24, [facility] V28) (Primary Dx); Malignant neoplasm metastatic to bone ([facility] V24, [facility] V28); Weight loss; Hot flashes from Last [...] Description 02/14/2026 2:15 PM EDT Office Visit [facility] Hematology Oncology [address] [place] [phone] Estefania Ritchie MD [address] [place] [phone] Health Maintenance Due Date Last Done [...] to complete this topic Insurance MEDICARE [employer]ICAL [employer] Care Teams Osteopathic Physician Relationship Specialty Start Date End Date Primitivo Lee MD [address] [place] [address] PCP - General Internal Medicine 05/17/18
== END 2025-04-26 13:55 | disposition home or self-care (01) ==
LOC: HO.HAP 13:54
PROVIDERS: Visit Provider Internal Medicine
DX: Z13.89 Encounter for screening for other disorder (principal)

== ENCOUNTER 2025-05-03 10:19 | Outpatient (AMB) | payer MEDICARE, OTHER, SELFPAY ==
--- NOTE | 2025-05-03 10:32 | A.OFFVIS_ITS ---
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 The pain is localized to the right side of the lower back and has persisted despite previous interventions, including radiofrequency ablation at L3, L4 MB and L5 DR branches on the right side, which the patient reports did not provide relief. The patient has been using tramadol to manage the pain, although he is considering other options due to insufficient relief. Previously, a right-sided transforaminal injection provided some relief, and the patient is contemplating repeating this intervention. Pain Description - Onset and Timing: Chronic, persistent pain - Quality and Character: Localized to the right side of the lower back - Exacerbating Factors: Ineffective relief from previous radiofrequency ablation - Relieving Factors: Partial relief from previous right-sided injection - Interference with Activities: Requires tramadol for pain management Physical Exam - Appears afebrile. - Alert and oriented. - Mood and affect appropriate. - Follows and participates in conversation appropriately. - Respiratory effort is unlabored. Pain Management - Affect: The patient expresses dissatisfaction with current pain management outcomes. - Analgesia: Currently using tramadol, with inadequate pain relief reported. - Activities of Daily Living: Pain management is necessary for daily functioning. Physical Exam Vital Signs: Last Vital Signs Pulse 68 05/03/25 10:33 Resp 16 05/03/25 10:33 BP 122/58 L 05/03/25 10:33 Pulse Ox 97 09/10/25 10:33 Oxygen Delivery Method Room Air 05/03/25 10:33 BMI result Body Mass Index 28.6 Assessment & Plan Assessment & Plan (1) Lumbar radiculopathy: Code(s): M54.16 - Radiculopathy, lumbar region Category: Medical Plan Plan Patient was informed and verbally consented to the use of an ambient scribe for clinic note documentation during this visit. 1. Chronic Radicular Lower Back Pain - Consider repeating right L4 TF injection for potential relief since it provided good relief in the past for similar pain. - Explore noninvasive neuromodulation as a potential next step. - Follow-up in six weeks to assess the effectiveness of the new intervention. Discussion Notes We considered alternative options, including repeating a right-sided injection and trying a noninvasive neuromodulation device. The patient was informed about the potential benefits and limitations of these interventions and agreed to a follow-up in six weeks to evaluate the outcome. Patient Instructions - Try the recommended noninvasive neuromodulation device for six weeks. - Follow up in six weeks to discuss the effectiveness of the device. - Consider repeating the right-sided injection if the device does not provide adequate relief. Coding Level of Care Code Est Pt Level 3 (93228) Diagnoses Lumbar radiculopathy M54.16
[2025-05-03 10:33] VITALS: BP 122/58; PULSE 68; RESP 16; O2SAT 97; BMI 28.6
--- OUTSIDE RECORDS SUMMARY | 2025-05-03 12:32 | XMS_ITS | Clinical Summary ---
Author Organization [facility] Address [address] [place] [address] Care Team Providers Care Drafter Commercial Name Role Phone Unavailable Primary Care Provider Unavailabl e Social History Tobacco Use Types Packs/Day Years Used Date Smoking Tobacco: Never Assessed Sex and Gender Information Value Date Recorded Sex Assigned at Not on file Legal Sex Male 1:56 PM EDT Gender Identity Not on file Sexual Orientation Not on file Plan of Treatment Health Maintenance Due Date Last Done Comments Advance Care Planning 1940 DTaP/Tdap/Td Vaccines (1 - Tdap) 1958 Pneumococcal Vaccines 50+ (1 of 1 - PCV) 1989 Zoster (Shingles) Vaccine (1 of 2) 1989 RSV Vaccine 60 years and old er and Patients (1 - 1-dose 75+ series) 2014 COVID-19 Vaccine (2023-2 5 season) 2025 Hepatitis B Vaccines Aged Out No long er eligible based on patient's age to complete this topic
--- OUTSIDE RECORDS SUMMARY | 2025-05-03 12:32 | XMS_ITS | Clinical Summary ---
Author Organization [facility] Address [address] [place] [address] Care Team Providers Care Budget Report Clerk Name Role Phone Primitivo Lee MD Primary Care Provider [phone]- [phone] Allergies No known active allergies Medications Medication [...] age to complete this topic Care Teams Budget Report Clerk Relationship Specialty Start Date End Date Primitivo Lee MD PCP - General Internal Medicine 05/12/18
== END 2025-05-03 11:01 | disposition home or self-care (01) ==
LOC: HO.PMC 10:19
PROVIDERS: Visit Provider Internal Medicine
DX: M54.16 Radiculopathy, lumbar region (principal)
CPT/HCPCS: 99213

== ENCOUNTER → 2025-05-03 10:19 | Outpatient (BNVA) | payer MEDICARE, OTHER, SELFPAY | PROVIDERS: Visit Provider Internal Medicine | DX: M54.16 Radiculopathy, lumbar region (principal); Z98.890 Other specified postprocedural states | CPT/HCPCS: 99212 ==

== ENCOUNTER 2025-05-30 15:01 | Outpatient (REF) | payer SELFPAY ==
--- OUTSIDE RECORDS SUMMARY | 2025-05-30 18:16 | XMS_ITS | Clinical Summary ---
Author Organization [facility] Address [address] [place] [address] Care Team Providers Care Narrative Writer Name Role Phone Unavailable Primary Care Provider [...]
--- OUTSIDE RECORDS SUMMARY | 2025-05-30 18:17 | XMS_ITS | Clinical Summary ---
Author Organization [facility] Address [address] [place] [address] Care Team Providers Care Wheelman Name Role Phone Primitivo Lee MD Primary Care Provider [phone]- [phone] Allergies No known active allergies Medications Medication [...] age to complete this topic Care Teams Wheelman Relationship Specialty Start Date End Date Primitivo Lee MD PCP - General Internal Medicine 05/12/18
--- OUTSIDE RECORDS SUMMARY | 2025-05-30 18:17 | XMS_ITS | Data Portability ---
Author Organization [place] [facility] Address [address] [phone] Care Team Providers Care Lanolin Plant Operator Name Role Phone CIRO KING Primary Care Provider [facility] Ic Design Engineer Assessment Encounter Date Assessment Date Assessment LastModified [...] be implanting the right ear with the Tembo Studio CI 632implant. After full discussion, the patient would like to proceed with surgery. I have provided patient with the contact information for my surgical technician. We will begin the scheduling process and see the patient back at the time of surgery. Patient will require medical clearance from their primary care provider preoperatively. Not available 02/14/2025 13:16:07 03/24/2025 03/24/2025 84-year-old male presents following right cochlear implant surgery. On exam there is very mild addison-implant effusion which should resolve once processor is placed next week. There is mild canal edema without otorrhea. Recommended a course of Ciprodex out of abundance of caution. Follow-up as scheduled with Dr. Clemente. [email or web address] Not available 03/24/2025 16:08:04 Plan of Treatment Reminders Order Date Submit Date Provider Last Modified By Organization Details Last Modified Time Details Appointments Post Op 2024 01:50P M ROBERT CLEMENTE MD Not available Not available Not available Lab None recorded. Referral None recorded. Procedures None recorded. Surgeries cochlear device implantat ion (SURG) 2024 025 [email or web address] Not available 02/14/2025 14:01:45 Imaging None recorded. Medication Orders ciproflox acin 0.3 %-dexamet hasone 0.1 % ear drops,surya pension [address] [facility] [place], [place], [address] [facility], [place], [address], 03/25/2025 11:53:46 Patient TargetsNo targets recorded. Patient InstructionsNo instructions recorded. Reason for Referral None Reported. Results Created Date Observation Date Name Description Value Unit Range Abnormal Flag Note LastModifiedBy Organization Detail LastModifiedTime 02/07/2002/01/2025 cochl ear impla nt deter minat ion form* No observ ation record ed. Not Available 2024 13:14:35 02/07/20 25 02/01/2025 audio gram No observ ation record ed. [email or web address] Not Available 01/22 10:48:15 02/07/20 25 11/21/2024 audio gram No observ ation record ed. [email or web address] Not Available 01/22 10:49:26 02/07/20 25 04/04/2024 audio gram No observ ation record ed. [email or web address] Not Available 01/22 10:50:20 02/15/20 25 02/01/2025 [...] contr ast No observ ation record ed. [place] [id number] [facility] [address] [facility] [address], [address], 02/20/2025 12:27:59 03/21/20 25 03/17/2025 fluor oscop y (PROC ) No observ ation record ed. [facility] [address] [facility], [place], [address], 03/22/2025 12:03:04 04/15/20 25 02/14/2025 CT, tempo ral bone, w/o contr ast No observ ation record ed. [place] [id number] [facility] 100 [facility] [address], [address], 04/17/2025 12:39:37 Result Notes None recorded. Problems Name Problem SNOMED Code Status Onset Date Resolution Date Notes Provider Name and Address Organization Details Recorded Time Sensorineur al hearing loss of bilateral ears 619689445 Active 2024 ROBERT CLEMENTE MD [address] [address], [place], [phone], [facility] 21:40:47 Otorrhea of right ear 1400596960042 106 Active 2024 MEGHAN MENG PA-C [address] [address], [place], [phone], [facility] - [facility] 16:08:22 Problem Notes None recorded. Procedures Surgical History Date Name Laterality Status Provider Name and Address Organization Details Recorded Time 03/17/20 COCHLEAR DEVICE IMPLANTATION (SURG) completed Junior Marmolejo [place] - [facility] 03/20/2025 11:20:36 03/17/20 COCHLEAR DEVICE IMPLANTATION (SURG) completed Junior Marmolejo [place] - [facility] 03/20/2025 11:21:17 02/15/20 CT temporal bones - Xoran completed ROBERT CLEMENTE MD [address] [facility],[address] [address], [place], [address], [facility] - [facility] 02/14/2025 13:13:56 Imaging Results None recorded. Procedure Notes None recorded. Medical Equipment Implant [employer] Issuing Agency Serial Number Lot Number Status Provider Name and Address Organization Details Recorded Time Cochlear implant FDA [id number] Y ROBERT CLEMENTE MD [address] [place] [address], [place], [address] , [facility] 15:36:09 Allergies No known drug allergies Medications Name [...] 1 tablet every day by oral route. 03/24 completed Not Available Not Available Not Available tramadol 50 mg tablet TAKE 2 [...] 1 SPRAY IN EACH nostril TWICE DAILY active Not Available Not Available No t Available lisinopril 40 mg tablet Take 1 tablet every day by oral route. active Not Available Not Available No t Available fluticasone propionate 50 mcg/actuati on nasal spray,suspe nsion instill 2 SPRAYS IN EACH nostril DAILY. shake WELL BEFORE using 03/24 completed Not Available Not Available Not Available diazepam 5 mg tablet TAKE 1 TABLET BY MOUTH ONCE NEEDED FOR SLEEP. TAKE 30 MINUTES PRIOR TO ARRIVAL FOR PROCEDURE active Not Available Not Available No t Available oxycodone 5 mg tablet Take 1 tablet by mouth every 4-6 hours as needed for 3 days. 03/24 completed Not Available Not Available Not Available TobraDex 0.3 %-0.1 % eye drops,suspe nsion 4 drops twice daily for 2 weeks 2024 active Not Available Not Available Not Avai lable ezetimibe 10 mg tablet Take 1 tablet every day by oral route. active Not Available Not Available No t Available Vitamin D3 25 mcg (1,000 unit) tablet Take by oral route. active Not Available Not Available No t Available ciprofloxac in 0.3 %-dexametha sone 0.1 % ear drops,suspe nsion active Not Available Not Available Not Available duloxetine 60 mg capsule,del ayed release Take 1 capsule every day by oral route. active Not Available Not Available No t Available oxycodone 10 mg tablet TAKE 1 TABLET BY MOUTH ONCE NEEDED FOR PAIN 30 MINUTES PRIOR TO ARRIVAL FOR PROCEDURE active Not Available Not Available No t Available Vitals Date Recorded Body height Body mass index (BMI) Body weight Provider Name and Address Organization Details Last Updated DateTime 02/14/2025 167.64 cm 28.7 kg/m2 08675.44 g Marleni Zamudio [place] - [facility] 02/14/2025 13:18:38 Date Recorded Body height Body mass index (BMI) Body weight Provider Name and Address Organization Details Last Updated DateTime 03/24/2025 167.64 cm 27.9 kg/m2 63312.48 g Amanda Arizmendikeyur [place] - [facility] 03/24/2025 15:47:10 Social History None recorded. Functional Status None recorded. Mental Status None recorded. Family History Nothing Reported. Medical History Condition Response Hearing Loss Y Arthritis Y GERD/Reflux Y Sleep Disorder Y High Cholesterol Y Cancer Y Stroke Y Hypertension Y Past Encounters Encounter ID Performer Location Encounter Start Date Encounter Closed Date Diagnosis/Indication Diagnosis SNOMED-CT Code Diagnosis ICD10 Code Diagnosis IMO Codes Diagnosis Note [id number] ROBERT CLEMENTE MD [facility] [address] [address] 02/14/2025 12:52:53 02/14/2025 13:39:04 Sensorineural hearing loss of bilateral ears 192565880 H90.3 [id number] MEGHAN MENG PA-C [facility] [address] [address] 03/24/2025 15:26:56 03/24/2025 15:53:46 Sensorineural hearing loss of bilateral ears 627075084 H90.3 [id number] Otorrhea of right ear 10 32758224 821696 H92.11 [id number] Health Concerns Section Related Observation LastModified by Organization Detai ls LastModified Time None Recorded Concern Status LastModified by Organization Details LastModified Time None Recorded Advance Directives Directive None Recorded Payers Insurance Date Sequence Insurance Name Policy Number Policy Zapata Covered Member ID Zapata Member ID Guarantor Name 03/04/2025 2 UNSPECIFIED REMIT PAYOR Reynaldo Momin 04/28/2025 2 [facility] PL[facility] (MEDICARE REPLACEMENT HMO) Reynaldo Momin [id number] Reynaldo Momin 03/24/2025 1 MEDICARE B-ND: [facility] [employer] [facility] Reynaldo Momin [id number] Reynaldo Momin Notes Date Note Type Note Provider Name [...] formal audiologic cochlear implant evaluation at the [facility] cochlear implant program and was found to meet the audiologic candidacy criteria for cochlear implantation in both ears. He expressed interest in implantation of the right ear. Patient comes in today accompanied by his . Patient reports that he just recently got his Prevnar 20 vaccine ROBERT CLEMENTE MD [address] [place] [address],[address], [address], [place] - [facility] 02/14/2025 13:38:50 03/24/2025 text/html ROS as noted in the HPI 84-year-old male presents following right cochlear implant. He has not yet had his first appointment for programming. He is a bit dizzy and off balance. REYNALDO MATUTE MD [address] [facility],[address] [address], [place], [address], [place] [facility] 03/25/2025 08:29:27
== END 2025-05-30 15:02 | disposition home or self-care (01) ==
LOC: HO.HAP 15:01
PROVIDERS: Visit Provider Internal Medicine
DX: Z46.1 Encounter for fitting and adjustment of hearing aid (principal); H90.3 Sensorineural hearing loss, bilateral
CPT/HCPCS: 92593; V5267

== ENCOUNTER 2025-06-13 14:52 | Outpatient (AMB) | payer MEDICARE, OTHER, SELFPAY ==
--- NOTE | 2025-06-13 14:56 | A.OFFVIS_ITS ---
Intake Visit Reasons: 1YR MCI Accompanied by: Spouse Allergies No Known Allergies Allergy (Verified 06/13/25 14:58) Medication List - Last Reconciled 06/13/25 by Marie Roca CNP atorvastatin 80 mg PO DAILY clopidogrel mg PO diphth,pertus(acell),tetanus (Boostrix Tdap) mL IM donepezil 10 mg PO DAILY 90 days duloxetine 90 mg PO DAILY ezetimibe mg PO gabapentin mg PO lisinopril mg PO omeprazole 20 mg PO DAILY tramadol 50 - 100 mg PO QID PRN HPI Comments Details: Short-term memory declining some. He noted that he was more forgetful and his agreed. He would forget things that she told him and needed more reminders. He said he went to the store recently for tea and got everything except the tea. 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 Sleep was up and down. Mood was okay. His memory has been stable over the last year with no decline. He has spinal stenosis with chronic back pain on tramadol 100mg qid daily, and has a SC stimulator by Dr Barrios. He has had history of memory problems for about 6-7 years which have been stable with no functional deterioration. Still cooks and cleans at home and drives without getting lost. He has been on donepezil for a few years. He also takes duloxetine 60 mg a day which he believes was prescribed for anxiety and depression. 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 He sees a retina specialist. [facility] Medical History (Updated 06/13/25 @ 15:13 by Marie Roca CNP) Prostate cancer ISATU on CPAP GERD (gastroesophageal reflux disease) Spinal stenosis Hx-TIA (transient ischemic attack) Depression Anxiety Hyperlipidemia Hypertension Hearing loss Review of Systems Const Denies chills, Denies daytime sleepiness, Reports difficulty sleeping, Denies fatigue, Denies fever(s), Denies frequent falls, Denies headache(s), Denies increased appetite, Denies poor appetite, Denies snoring, Denies weakness, Denies weight gain and Denies weight loss Eyes Denies loss of vision ENT Denies vertigo, Denies dizziness and Denies headache(s) Card Denies chest pain at rest, Denies chest pain with activity, Denies syncope, Denies leg edema and Denies palpitations Resp Denies snoring GI Denies constipation, Denies heartburn, Denies diarrhea and Denies nausea Denies urinary frequency, Denies urinary incontinence and Denies urinary urgency Musc Denies abnormal gait, Denies numbness and Denies tingling Skin/Breast Denies dry skin and Denies rash Neuro Denies abnormal gait, Denies vertigo, Denies dizziness, Denies syncope, Denies frequent falls, Denies headache(s), Denies lack of coordination, Denies loss of vision, Reports memory loss, Denies numbness, Denies restless legs, Denies seizure-like activity, Denies tingling, Denies paresthesias, Denies tremor(s) and Denies weakness Psych Denies anxiety, Denies depression, Denies auditory hallucinations, Reports memory loss, Denies visual hallucinations and Denies suicidal ideation Endo Denies fatigue and Denies palpitations Physical Exam Const Other: General Appearance:? normal, in no acute distress. Heart:? S1, S2 normal, no murmurs. Lungs:? clear anteriorly and posteriorly. Musculoskeletal:? normal. Extremities:? no edema. Psych:? alert, oriented, cognitive function intact, cooperative with exam. Neuro Other: Abnormal Neurological Findings:?MMSE 26/30 Mental Status: alert and oriented X 3. Normal attention, orientation, memory, and affect. Cranial Nerves: Pupils are equal, round, and reactive to light. External ocular muscles are intact. Visual wang are full, no ptosis. Face is symmetrical, no facial weakness or droop. Facial sensations are normal. Tongue protrudes in midline. Palate elevates symmetrically. Shoulder shrugging is normal Motor Examination: Normal muscle tone, bulk and strength. No atrophy or fasciculations. No drift of the extended upper extremities. DTR 2+. Plantars are flexor. Sensory Exam: Normal light touch, temperature, pinprick, vibration, and joint- position sensations. Rhomberg sign is absent. Coordination: No ataxia. No titubation. Gait Exam: Within normal limits. Cerebellar Signs: [id number] is okay. Extrapyramidal System: No tremor, rigidity with normal facial expressions. No bradykinesia. No bradyphrenia. Normal arm swing and posture. No propulsion or retropulsion. Speech: Normal. MMSE Level of Consciousness: Alert. Orientation: Knows correct year, month, day and season. Not date. Knows correct city, county and state. Knows correct location and floor. Registration: Able to register 3 objects. Attention: Serial 7's performed accurately to 86. Recall: Able to recall 3 out of 3 objects. Language: Normal spontaneous speech, fluency, repetition, naming, comprehension, reading, and writing. Total Score: 26/30. Assessment & Plan Assessment & Plan (1) MCI (mild cognitive impairment): Code(s): G31.84 - Mild cognitive impairment of uncertain or unknown etiology Category: Medical Plan: Continue donepezil 10mg 1 tablet at bedtime. Start memantine 5mg 1 tablet twice a day, use/side effects reviewed. Medications: New memantine (Namenda) 5 mg PO BID 180 tabs 1RF 90 days Coding Level of Care Code Est Pt Level 4 (71414) Diagnoses MCI (mild cognitive impairment) G31.84
--- OUTSIDE RECORDS SUMMARY | 2025-06-13 20:03 | XMS_ITS | Clinical Summary ---
Author Organization [facility] Address [address] [place] [address] Care Team Providers Care Unload Associate Name Role Phone Unavailable Primary Care Provider [...] Vaccine (1 of 2) 1989 RSV Vaccine 50 years and old er and Patients (1 - 1-dose 75+ series) 2014 COVID-19 Vaccine (2023-2 5 season) 2025 Hepatitis B Vaccines Aged Out No long er eligible based on patient's age to complete this topic
--- OUTSIDE RECORDS SUMMARY | 2025-06-13 20:03 | XMS_ITS | Data Portability ---
Author Organization [place] - [facility] Address [address] [address] Care Team Providers Care Qa Automation Developer Name Role Phone CIRO KING Primary Care Provider [facility] Pulmonology Physician Assessment Encounter Date Assessment Date Assessment LastModified [...] be implanting the right ear with the [employer] (MCG) CI 632implant. After full discussion, the patient would like to proceed with surgery. I have provided patient with the contact information for my ophthalmic surgical assistant. We will begin the scheduling process and see the patient back at the time of surgery. Patient will require medical clearance from their primary care provider preoperatively. [email or web address] Not available 02/14/2025 13:16:07 03/24/2025 03/24/2025 84-year-old male presents following right cochlear implant surgery. On exam there is very mild addison-implant effusion which should resolve once processor is placed next week. There is mild canal edema without otorrhea. Recommended a course of Ciprodex out of abundance of caution. Follow-up as scheduled with Dr. Clemente. [email or web address] Not available 03/24/2025 16:08:04 Plan of Treatment Reminders Order Date Submit Date Provider Last Modified By Organization Details Last Modified Time Details Appointments Post Op 2024 01:50P M ROBERT CLEMENTE MD Not available Not available Not available Lab None recorded. Referral None recorded. Procedures None recorded. Surgeries cochlear device implantat ion (SURG) 2024 025 [email or web address] Not available 02/14/2025 14:01:45 Imaging None recorded. Medication Orders ciproflox acin 0.3 %-dexamet hasone 0.1 % ear drops,surya pension 2024 025 [facility] [place], [place], [address] [facility], [place], [address], 03/25/2025 11:53:46 Patient TargetsNo targets recorded. Patient InstructionsNo instructions recorded. Reason for Referral None Reported. Results Created Date Observation Date Name Description Value Unit Range Abnormal Flag Note LastModifiedBy Organization Detail LastModifiedTime 02/07/2002/01/2025 cochl ear impla nt deter minat ion form* No observ ation record ed. [email or web address] Not Available 2024 13:14:35 02/07/20 25 02/01/2025 audio gram No observ ation record ed. [email or web address] Not Available 01/22 10:48:15 02/07/20 25 11/21/2024 audio gram No observ ation record ed. Not Available 01/22 10:49:26 02/07/20 25 04/04/2024 audio gram No observ ation record ed. [email or web address] Not Available 01/22 10:50:20 02/15/20 25 02/01/2025 [...] contr ast No observ ation record ed. [place] [id number] [facility] 100 [facility] [address], [place], [address], 02/20/2025 12:27:59 03/21/20 25 03/17/2025 fluor oscop y (PROC ) No observ ation record ed. [email or web address] [facility] [address] [facility], [place], [address], 03/22/2025 12:03:04 04/15/20 25 02/14/2025 CT, tempo ral bone, w/o contr ast No observ ation record ed. [email or web address] [id number] [facility] 100 [facility] [address], [address], 04/17/2025 12:39:37 Result Notes None recorded. Problems Name Problem SNOMED Code Status Onset Date Resolution Date Notes Provider Name and Address Organization Details Recorded Time Sensorineur al hearing loss of bilateral ears 743101541 Active 2024 ROBERT CLEMENTE MD [address] [address], [place], [address], [facility] 21:40:47 Otorrhea of right ear 7890591478282 106 Active 2024 MEGHAN MENG PA-C [address] [address], [place], [address], [facility] 16:08:22 Problem Notes None recorded. Procedures Surgical History Date Name Laterality Status Provider Name and Address Organization Details Recorded Time 03/17/20 COCHLEAR DEVICE IMPLANTATION (SURG) completed Junior Marmolejo [place] - [facility] 03/20/2025 11:20:36 03/17/20 COCHLEAR DEVICE IMPLANTATION (SURG) completed Junior Marmolejo [place] - [facility] 03/20/2025 11:21:17 02/15/20 CT temporal bones - Xoran completed ROBERT CLEMENTE MD [address] [facility],[address] [address], [place], [address], [facility] 02/14/2025 13:13:56 Imaging Results None recorded. Procedure Notes None recorded. Medical Equipment Implant [employer] Issuing Agency Serial Number Lot Number Status Provider Name and Address Organization Details Recorded Time Cochlear implant FDA [id number] Y ROBERT CLEMENTE MD [address] [place] [address], [place], [address] , [facility] 15:36:09 Allergies No known drug allergies Medications [...] Updated DateTime 02/14/2025 167.64 cm 28.7 kg/m2 42390.44 g Marleni Zamudio [place] - [facility] [place] 02/14/2025 13:18:38 Date Recorded Body height Body mass index (BMI) Body weight Provider Name and Address Organization Details Last Updated DateTime 03/24/2025 167.64 cm 27.9 kg/m2 47150.48 g Amanda Arizmendikeyur [place] - [facility] 03/24/2025 15:47:10 Social History None recorded. Functional Status None recorded. Mental Status None recorded. Family History Nothing Reported. Medical History Condition Response Arthritis Y Hearing Loss Y GERD/Reflux Y High Cholesterol Y Sleep Disorder Y Cancer Y Stroke Y Hypertension Y Past Encounters Encounter ID Performer Location Encounter Start Date Encounter Closed Date Diagnosis/Indication Diagnosis SNOMED-CT Code Diagnosis ICD10 Code Diagnosis IMO Codes Diagnosis Note [id number] ROBERT CLEMENTE MD [facility] [address] [address] 02/14/2025 12:52:53 02/14/2025 13:39:04 Sensorineural hearing loss of bilateral ears 248645977 H90.3 [id number] MEGHAN MENG PA-C [facility] [address] [address] 03/24/2025 15:26:56 03/24/2025 15:53:46 Sensorineural hearing loss of bilateral ears 225360535 H90.3 [id number] Otorrhea of right ear 10 15946158 778458 H92.11 [id number] Health Concerns Section Related Observation LastModified by Organization Detai ls LastModified Time None Recorded Concern Status LastModified by Organization Details LastModified Time None Recorded Advance Directives Directive None Recorded Payers Insurance Date Sequence Insurance Name Policy Number Policy Zapata Covered Member ID Zapata Member ID Guarantor Name 03/04/2025 2 UNSPECIFIED REMIT PAYOR Reynaldo Momin 04/28/2025 2 [facility] PL[facility] (MEDICARE REPLACEMENT HMO) Reynaldo Momin [id number] Reynaldo Momin 03/24/2025 1 MEDICARE [place] [facility] [employer] Reynaldo Momin [id number] Reynaldo Momin Notes Date Note Type Note [...] formal audiologic cochlear implant evaluation at the [facility] cochlear implant program and was found to meet the audiologic candidacy criteria for cochlear implantation in both ears. He expressed interest in implantation of the right ear. Patient comes in today accompanied by his . Patient reports that he just recently got his Prevnar 20 vaccine ROBERT CLEMENTE MD [address] [place] [address],[address], [address], [place] - [facility] 02/14/2025 13:38:50 03/24/2025 text/html ROS as noted in the HPI 84-year-old male presents following right cochlear implant. He has not yet had his first appointment for programming. He is a bit dizzy and off balance. REYNALDO MATUTE MD [address] [facility],[address] [place] [address], [place], [address], [place] [facility] 03/25/2025 08:29:27
--- OUTSIDE RECORDS SUMMARY | 2025-06-13 20:03 | XMS_ITS | Clinical Summary ---
Author Organization [facility] Address [address] [place] [address] Phone Care Team Providers Care Budget Clerk Name Role Phone Primitivo Lee MD [...] Weight loss 07/01/2021 Dementia without behavioral disturbance (CMS/HCC V24, CMS/[facility] V28) 05/17/2018 Essential hypertension 05/17/2018 Gastroesophageal reflux disease 05/17/2018 Malignant neoplasm metastati c to bone (CMS/HCC V24, CMS/[facility] V28) 05/17/2018 Mixed hyperlipidemia 05/17/2018 Prostate cancer (CMS/HCC V24, CMS/[facility] V28) 05/17 Immunizations Immunization Administration Dates Next Due Mobi[employer] (ages 12 & older) PATRICIA S-CoV-2 COVID-19, [...] Description 02/14/2026 2:15 PM EDT Office Visit [facility] Hematology Oncology [address] [place] [address] Estefania Ritchie MD [address] [place] [address] Health Maintenance Due Date Last [...] Wellness Visit 07/29/2023 07/29/2022 Depression Screening 08/24/2024 Diabetes: Annual Urine Albumin-Creatinine Ratio (uACR) 02/14/2025 Diabetes: Blood Sugar Control Test (HGBA1C) 02/14/2025 COVID-19 Vaccine (9 - Pfizer risk season) 2025 05/03/2024, 06/02/2023, 05/21/2022, Additional history exists Influenza Vaccine (#1) 2025 , 05/22/2023, 05/21/2022, [...] age to complete this topic Insurance MEDICARE [facility] Care Teams Budget Clerk Relationship Specialty Start Date End Date Primitivo Lee MD [address] [place] [address] PCP - General Internal Medicine 05/17/18
--- OUTSIDE RECORDS SUMMARY | 2025-06-13 20:03 | XMS_ITS | Clinical Summary ---
Author Organization [facility] Address [address] [place] [address] Care Team Providers Care Phytopathology Teacher Name Role Phone Primitivo Lee MD Primary Care Provider [phone] Allergies No known active allergies Medications Medication [...] age to complete this topic Care Teams Phytopathology Teacher Relationship Specialty Start Date End Date Primitivo Lee MD PCP - General Internal Medicine 05/12/18
== END 2025-06-13 15:09 | disposition home or self-care (01) ==
LOC: HO.HSM 14:53
PROVIDERS: PCP Internal Medicine; Referring Provider Internal Medicine; Visit Provider Registered Nurse
DX: G31.84 Mild cognitive impairment of uncertain or unknown etiology (principal)
CPT/HCPCS: 99214

== ENCOUNTER → 2025-06-13 14:52 | Outpatient (BNVA) | payer MEDICARE, OTHER, SELFPAY | PROVIDERS: PCP Internal Medicine; Referring Provider Internal Medicine; Visit Provider Registered Nurse | DX: G31.84 Mild cognitive impairment of uncertain or unknown etiology (principal) | CPT/HCPCS: 99212 ==

== ENCOUNTER 2025-06-16 09:02 | Outpatient (AMB) | payer MEDICARE, OTHER, SELFPAY ==
--- NOTE | 2025-06-16 09:13 | A.OFFVIS_ITS ---
Vital Signs 06/16/25 09:14 Height 5 ft 6 in Weight 178 lb BMI 28.7 BP 122/60 Blood Pressure Location Lt brachial Position Sitting Respiration 16 Pulse 64 Pulse Source Pulse Oximeter Pulse Oximetry (%) 95 Oxygen Delivery Method Room Air Intake Visit Reasons: 6 WEEK FOLLOW UP Registered Dental Assistant Rda Required: No Allergies No Known Allergies Allergy (Verified 06/16/25 09:17) Medication List - Last Reconciled 06/16/25 by Angelika Rob LPN atorvastatin 80 mg PO DAILY clopidogrel mg PO diphth,pertus(acell),tetanus (Boostrix Tdap) mL IM donepezil 10 mg PO DAILY 90 days duloxetine 90 mg PO DAILY ezetimibe mg PO gabapentin mg PO lisinopril mg PO memantine (Namenda) 5 mg PO BID 90 days omeprazole 20 mg PO DAILY tramadol 50 - 100 mg PO QID PRN HPI HPI 6 WEEK FOLLOW UP: Details: History of Present Illness The patient is an 84-year-old male presenting with chronic low back pain. The pain has been persistent and has previously been managed with non-invasive neuromodulation and medication, including Tylenol and Amadol, which provided some relief. The patient reports that standing for prolonged periods exacerbates the pain, while sitting provides some relief. The patient also experiences lumbar radicular pain, which has been previously managed with right lumbar transforaminal injections, [facility] The longest relief was achieved with a temporary nerve stimulation device placed about a year ago. Pain Description - Onset and Timing: Persistent pain, exacerbated by standing for prolonged periods - Quality and Character: Chronic low back pain with lumbar radicular pain - Primary Location: Low back - Exacerbating Factors: Standing for prolonged periods - Relieving Factors: Sitting provides some relief Physical Exam - Musculoskeletal: Right leg straight leg raise test conducted while seated, no back pain elicited, knee pain reported Results Pain Management - Affect: No specific impact on mood or psychological wellbeing discussed - Analgesia: Current use of Tylenol and Amadol, with some relief reported - Adverse Effects: No adverse effects from medications discussed - Activities of Daily Living: Pain exacerbated by standing, relieved by sitting - Aberrant Drug Related Behaviors: No aberrant behaviors discussed [facility] Medical History (Updated 06/13/25 @ 15:13 by Marie Roca CNP) Prostate cancer ISATU on CPAP GERD (gastroesophageal reflux disease) Spinal stenosis Hx-TIA (transient ischemic attack) Depression Anxiety Hyperlipidemia Hypertension Hearing loss Physical Exam Vital Signs: Last Vital Signs Pulse 64 06/16/25 09:14 Resp 16 06/16/25 09:14 BP 122/60 06/16/25 09:14 Pulse Ox 95 06/16/25 09:14 Oxygen Delivery Method Room Air 06/16/25 09:14 BMI result Body Mass Index 28.7 Assessment & Plan Assessment & Plan (1) Lumbar radiculopathy: Code(s): M54.16 - Radiculopathy, lumbar region Category: Medical Plan Plan Patient was informed and verbally consented to the use of an ambient scribe for clinic note documentation during this visit. 1. Chronic Low Back Pain with Sciatica - Plan to request insurance authorization for a right L4 transforaminal steroid injection to replicate prior success with injections. - If the injection is not effective, plan to proceed with replacing the temporary nerve stimulator device. Discussion Notes I discussed with the patient the plan to request insurance authorization for a right L4 transforaminal steroid injection, which has previously provided relief. If the injection is not effective, we will consider replacing the temporary nerve stimulator device. The patient expressed understanding and agreement with the proposed plan. Patient Instructions - Await contact regarding insurance authorization for the injection. - Follow up in two to three weeks for the injection once authorization is obtained. - Continue current pain management regimen with Tylenol and Amadol as needed. Coding Level of Care Code Est Pt Level 3 (61568) Diagnoses Lumbar radiculopathy M54.16
[2025-06-16 09:14] VITALS: BP 122/60; PULSE 64; RESP 16; O2SAT 95; BMI 28.7
--- OUTSIDE RECORDS SUMMARY | 2025-06-16 09:51 | XMS_ITS | Clinical Summary ---
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 Hematology Oncology [address] [place] [address] Estefania Ritchie MD [address] [place] [address] Health Maintenance Due Date Last [...] age to complete this topic Insurance MEDICARE [facility] Care Teams Retail Account Manager Relationship Specialty Start Date End Date Primitivo Lee MD [address] [place] [address] PCP - General Internal Medicine 05/17/18
--- OUTSIDE RECORDS SUMMARY | 2025-06-16 09:51 | XMS_ITS | Clinical Summary ---
Author Organization [facility] Address [address] [place] [address] Care Team Providers Care Tire Rebuilder Name Role Phone Primitivo Lee MD Primary Care Provider [phone] Allergies No known active allergies Medications Medication [...] age to complete this topic Care Teams Tire Rebuilder Relationship Specialty Start Date End Date Primitivo Lee MD PCP - General Internal Medicine 05/12/18
--- OUTSIDE RECORDS SUMMARY | 2025-06-16 09:51 | XMS_ITS | Clinical Summary ---
Author Organization [facility] Address [address] [place] [address] Care Team Providers Care Poker Dealer Name Role Phone Unavailable Primary Care Provider [...]
--- OUTSIDE RECORDS SUMMARY | 2025-06-16 09:51 | XMS_ITS | Data Portability ---
Author Organization [place] [facility] Address [address] [address] Care Team Providers Care Textile Chemist Name Role Phone CIRO KING Primary Care Provider [facility] Pressure Tank Operator Assessment Encounter Date Assessment Date Assessment LastModified [...] be implanting the right ear with the Manufacturers' Inventory CI 632implant. After full discussion, the patient would like to proceed with surgery. I have provided patient with the contact information for my surgical supervisor. We will begin the scheduling process and see the patient back at the time of surgery. Patient will require medical clearance from their primary care provider preoperatively. [email or web address] Not available 02/14/2025 13:16:07 03/24/2025 03/24/2025 84-year-old male presents following right cochlear implant surgery. On exam there is very mild addison-implant effusion which should resolve once processor is placed next week. There is mild canal edema without otorrhea. Recommended a course of Ciprodex out of abundance of caution. Follow-up as scheduled with Dr. Clemente. [email or web address] Not available 03/24/2025 16:08:04 Plan of Treatment Reminders Order Date Submit Date Provider Last Modified By Organization Details Last Modified Time Details Appointments Post Op 2024 01:50P M ROBERT CLEMENTE MD Not available Not available Not available Lab None recorded. Referral None recorded. Procedures None recorded. Surgeries cochlear device implantat ion (SURG) 2024 025 [email or web address] Not available 02/14/2025 14:01:45 Imaging None recorded. Medication Orders ciproflox acin 0.3 %-dexamet hasone 0.1 % ear drops,surya pension 2024 025 [facility] [place], [place], [address] [facility], [place], [address], 03/25/2025 11:53:46 Patient TargetsNo targets recorded. Patient InstructionsNo instructions recorded. Reason for Referral None Reported. Results Created Date Observation Date Name Description Value Unit Range Abnormal Flag Note LastModifiedBy Organization Detail LastModifiedTime 02/07/2002/01/2025 cochl ear impla nt deter minat ion form* No observ ation record ed. [email or web address] Not Available 2024 13:14:35 02/07/20 25 02/01/2025 audio gram No observ ation record ed. [email or web address] Not Available 01/22 10:48:15 02/07/20 25 11/21/2024 audio gram No observ ation record ed. Not Available 01/22 10:49:26 02/07/20 25 04/04/2024 audio gram No observ ation record ed. [email or web address] Not Available 01/22 10:50:20 02/15/20 25 02/01/2025 [...] contr ast No observ ation record ed. [email or web address] [id number] [facility] 100 [facility] [address], [place], [address], 02/20/2025 12:27:59 03/21/20 25 03/17/2025 fluor oscop y (PROC ) No observ ation record ed. [email or web address] [facility] [address] [facility], [place], [address], 03/22/2025 12:03:04 04/15/20 25 02/14/2025 CT, tempo ral bone, w/o contr ast No observ ation record ed. [email or web address] [id number] [facility] [address], [address], 04/17/2025 12:39:37 Result Notes None recorded. Problems Name Problem SNOMED Code Status Onset Date Resolution Date Notes Provider Name and Address Organization Details Recorded Time Sensorineur al hearing loss of bilateral ears 777131070 Active 2024 ROBERT CLEMENTE MD [address] [address], [place], [address], [facility] 21:40:47 Otorrhea of right ear 4660426039098 106 Active 2024 MEGHAN MENG PA-C [address] [address], [place], [address], [facility] - [facility] 16:08:22 Problem Notes None recorded. Procedures Surgical History Date Name Laterality Status Provider Name and Address Organization Details Recorded Time 03/17/20 COCHLEAR DEVICE IMPLANTATION (SURG) completed Junior Marmolejo [place] - [facility] 03/20/2025 11:20:36 03/17/20 COCHLEAR DEVICE IMPLANTATION (SURG) completed Junior Marmolejo [place] - [facility] 03/20/2025 11:21:17 02/15/20 CT temporal bones - Xoran completed ROBERT CLEMENTE MD 100 [facility] [address], [place], [address], [facility] - [facility] 02/14/2025 13:13:56 Imaging Results None recorded. Procedure Notes None recorded. Medical Equipment Implant YOLI Issuing Agency Serial Number Lot Number Status Provider Name and Address Organization Details Recorded Time Cochlear implant FDA [id number] Y ROBERT CLEMENTE MD [address] [place] [address], [place], [address] , [facility] 15:36:09 Allergies No known drug allergies [...] Updated DateTime 02/14/2025 167.64 cm 28.7 kg/m2 69752.44 g Marleni Zamudio [place] - [facility] [place] 02/14/2025 13:18:38 Date Recorded Body height Body mass index (BMI) Body weight Provider Name and Address Organization Details Last Updated DateTime 03/24/2025 167.64 cm 27.9 kg/m2 03260.48 g Amanda Arizmendikeyur [place] - [facility] 03/24/2025 15:47:10 Social History None recorded. Functional Status None recorded. Mental Status None recorded. Family History Nothing Reported. Medical History Condition Response Arthritis Y Hearing Loss Y Cancer Y Stroke Y High Cholesterol Y Sleep Disorder Y GERD/Reflux Y Hypertension Y Past Encounters Encounter ID Performer Location Encounter Start Date Encounter Closed Date Diagnosis/Indication Diagnosis SNOMED-CT Code Diagnosis ICD10 Code Diagnosis IMO Codes Diagnosis Note [id number] ROBERT CLEMENTE MD [facility] [address] [address] 02/14/2025 12:52:53 02/14/2025 13:39:04 Sensorineural hearing loss of bilateral ears 433485775 H90.3 [id number] MEGHAN MENG PA-C [facility] [address] [address] 03/24/2025 15:26:56 03/24/2025 15:53:46 Sensorineural hearing loss of bilateral ears 140795117 H90.3 [id number] Otorrhea of right ear 10 61820835 821460 H92.11 [id number] Health Concerns Section Related Observation LastModified by Organization Detai ls LastModified Time None Recorded Concern Status LastModified by Organization Details LastModified Time None Recorded Advance Directives Directive None Recorded Payers Insurance Date Sequence Insurance Name Policy Number Policy Zapata Covered Member ID Zapata Member ID Guarantor Name 03/04/2025 2 UNSPECIFIED REMIT PAYOR Reynaldo Momin 04/28/2025 2 [facility] (MEDICARE REPLACEMENT HMO) Reynaldo Momin [id number] Reynaldo Momin 03/24/2025 1 MEDICARE B-[place]: [facility] [employer] Reynaldo Momin [id number] Reynaldo Momin Notes Date Note Type Note [...] formal audiologic cochlear implant evaluation at the [facility] cochlear implant program and was found to meet the audiologic candidacy criteria for cochlear implantation in both ears. He expressed interest in implantation of the right ear. Patient comes in today accompanied by his . Patient reports that he just recently got his Prevnar 20 vaccine ROBERT CLEMENTE MD [address] [place] [address],[address], [address], [place] [facility] 02/14/2025 13:38:50 03/24/2025 text/html ROS as noted in the HPI 84-year-old male presents following right cochlear implant. He has not yet had his first appointment for programming. He is a bit dizzy and off balance. REYNALDO MATUTE MD 100 [facility] [address], [place], [address], [place] [facility] 03/25/2025 08:29:27
== END 2025-06-16 09:46 | disposition home or self-care (01) ==
LOC: HO.PMC 09:03
PROVIDERS: Visit Provider Internal Medicine
DX: M54.16 Radiculopathy, lumbar region (principal)
CPT/HCPCS: 99213

== ENCOUNTER → 2025-06-16 09:02 | Outpatient (BNVA) | payer MEDICARE, OTHER, SELFPAY | PROVIDERS: Visit Provider Internal Medicine | DX: M54.16 Radiculopathy, lumbar region (principal) | CPT/HCPCS: 99212 ==

== ENCOUNTER 2025-07-27 06:38 | Outpatient (REF) | payer MEDICARE, OTHER, SELFPAY ==
--- NOTE | ~2025-07-27 | FL_ITS ---
EXAMINATION: FL GUIDANCE ONLY HISTORY: M54.16 - Radiculopathy, lumbar region COMPARISON: None available. TECHNIQUE: Fluoroscopy time: 41 seconds. Cumulative Dose: 21.0 mGy. DAP: 2382.50 mGycm2 Images: 2. FINDINGS: Fluoroscopic spot films of the lumbar spine demonstrate a needle and contrast material in place. FL/FL guidance in treatment room IMPRESSION: Fluoroscopy during procedure. Please see procedure report for additional information. Electronically signed by: Tyrone Littlejohn MD 07/28/2025 06:59 AM [email or web address]
--- OUTSIDE RECORDS SUMMARY | 2025-07-27 06:40 | XMS_ITS | Clinical Summary ---
Author Organization [facility] Address [address] [place] [address] Phone Care Team Providers Care Lumber Handler Name Role Phone Primitivo Lee MD Primary [...] 07/01/2021 Dementia without behavioral disturbance (CMS/HCC V24, CMS/[facility] V28) 05/17/2018 Essential hypertension 05/17/2018 Gastroesophageal reflux disease 05/17/2018 Malignant neoplasm metastati c to bone (CMS/HCC V24, CMS/[facility] V28) 05/17/2018 Mixed hyperlipidemia 05/17/2018 Prostate cancer (CMS/HCC V24, CMS/[facility] V28) 05/17 Immunizations Immunization Administration Dates Next Due Fundgrazing (ages 12 & older) PATRICIA S-CoV-2 COVID-19, [...] Description 02/14/2026 2:15 PM EDT Office Visit [facility] Hematology Oncology [address] [place] [address] Estefania Ritchie MD [address] [place] [address] Health Maintenance Due Date Last Done Comments Diabetes: Annual Foot Exam 1950 Diabetes: Annual [...] Visit 07/29/2023 07/29/2022 Depression Screening 08/24/2024 Diabetes: Blood Sugar Control Test (HGBA1C) 02/14/2025 COVID-19 Vaccine ( season) 2025 05/03/2024, 06/02/2023, 05/21/2022, Additional history [...] to complete this topic Insurance MEDICARE [employer] Care Teams Lumber Handler Relationship Specialty Start Date End Date Primitivo Lee MD [address] [place] [address] PCP - General Internal Medicine 05/17/18
--- OUTSIDE RECORDS SUMMARY | 2025-07-27 06:40 | XMS_ITS | Clinical Summary ---
Author Organization [facility] Prior to 01/21/[address] [place] [address] Care Team Providers Care Wrapper Rewinder Name Role Phone Primitivo Lee MD Primary Care Provider [phone] Allergies No known active allergies Medications Medication [...] age to complete this topic Care Teams Wrapper Rewinder Relationship Specialty Start Date End Date Primitivo Lee MD PCP - General Internal Medicine 05/12/18
--- OUTSIDE RECORDS SUMMARY | 2025-07-27 06:40 | XMS_ITS | Clinical Summary ---
Author Organization [facility] Address [address] [place] [address] Care Team Providers Care Training Analyst Name Role Phone Unavailable Primary Care Provider [...]
--- OUTSIDE RECORDS SUMMARY | 2025-07-27 06:40 | XMS_ITS | Encounter Summary ---
Author Organization [facility] Prior to 06/24/2024 Address [address] [place] [address] Care Team Providers Care Computer Network Support Specialist Name Role Phone Primitivo Lee Primary Care Provider Gagandeep cadet Encounter Details Date Type Department Care Team Description 08/04/2018 Release of Information Medical Records [address] [place] [id number] Abstract, Provider Social History Tobacco Use Types [...] on filedocumented in this encounter Care Teams Computer Network Support Specialist Relationship Specialty Start Date End Date Primitivo Lee PCP - General Internal Medicine 05/17/18 documented as of this encounter
--- OUTSIDE RECORDS SUMMARY | 2025-07-27 06:40 | XMS_ITS | Data Portability ---
Author Organization [place] - [facility] Address [address] [address] Care Team Providers Care Chief Design Engineer Name Role Phone CIRO KING Primary Care Provider [phone] [facility]UDI[facility] Stars Coordinator [phone] Assessment Encounter Date Assessment Date Assessment LastModified [...] be implanting the right ear with the [employer] CI 632implant. After full discussion, the patient would like to proceed with surgery. I have provided patient with the contact information for my surgical resident. We will begin the scheduling process and see the patient back at the time of surgery. Patient will require medical clearance from their primary care provider preoperatively. [email or web address] Not available 02/14/2025 13:16:07 03/24/2025 03/24/2025 84-year-old male presents following right cochlear implant surgery. On exam there is very mild addison-implant effusion which should resolve once processor is placed next week. There is mild canal edema without otorrhea. Recommended a course of Ciprodex out of abundance of caution. Follow-up as scheduled with Dr. Clemente. [email or web address] Not available 03/24/2025 16:08:04 07/18/2025 07/18/2025 Patient has heal ed well following placement of right cochlear implant. Patient will continue to follow-up with their implant paperback machine operator for implant mapping and external technology maintenance. Patient will contact me should they have any problems with the internal device or periauricular skin. I reaffirmed the instructions to contact us immediately should there be any pain or redness around the implant site. Patient will continue to use vaginal amplification in the left ear as he feels like this is still having some auditory benefit to his overall hearing experience. Patient may follow-up as needed Not available 07/18/2025 14:25:58 Plan of Treatment Reminders Order Date Submit Date Provider Last Modified By Organization Details Last Modified Time Details Appointments None recorded. Lab None recorded. Referral None recorded. Procedures None recorded. Surgeries cochlear device implantatio n (SURG) 2024 025 [email or web address] Not available 14:01:45 Imaging None recorded. Medication Orders ciprofloxac in 0.3 %-dexametha sone 0.1 % ear drops,suspe nsion [address] [facility] - [place], [address] [facility], [place], [address], 14:19:10 Patient TargetsNo targets recorded. Patient InstructionsNo instructions recorded. Reason for Referral None Reported. Results Created Date Observation Date Name Description Value Unit Range Abnormal Flag Note LastModifiedBy Organization Detail LastModifiedTime 02/07/2002/01/2025 cochl ear impla nt deter minat ion form* No observ ation record ed. [email or web address] Not Available 2024 13:14:35 02/07/20 25 02/01/2025 audio gram No observ ation record ed. [email or web address] Not Available 01/22 10:48:15 02/07/20 25 11/21/2024 audio gram No observ ation record ed. [email or web address] Not Available 01/22 10:49:26 02/07/20 25 04/04/2024 audio gram No observ ation record ed. [email or web address] Not Available 01/22 10:50:20 02/15/20 25 02/01/2025 [...] contr ast No observ ation record ed. [facility] [address], [place], [address], 02/20/2025 12:27:59 03/21/2003/17/2025 fluor oscop y (PROC ) No observ ation record ed. [email or web address] [facility] [address] [place], [address], 03/22/2025 12:03:04 04/15/20 25 02/14/2025 CT, tempo ral bone, w/o contr ast No observ ation record ed. [email or web address] [facility] [address], [place], [address], 04/17/2025 12:39:37 Result Notes None recorded. Problems Name Problem SNOMED Code Status Onset Date Resolution Date Notes Provider Name and Address Organization Details Recorded Time Sensorineur al hearing loss of bilateral ears 783593903 Active 2024 ROBERT CLEMENTE MD [address] [address], [place], [address], [facility] [place] 21:40:47 Otorrhea of right ear 6849373234784 106 Active 2024 MEGHAN MENG PA-C [address] [address], [place], [address], [facility] - [facility] 16:08:22 Problem Notes None recorded. Procedures Surgical History Date Name Laterality Status Provider Name and Address Organization Details Recorded Time 03/17/20 COCHLEAR DEVICE IMPLANTATION (SURG) completed Junior Marmolejo [place] - [facility] [place] 03/20/2025 11:20:36 03/17/20 COCHLEAR DEVICE IMPLANTATION (SURG) completed Junior Marmolejo [place] [facility] 03/20/2025 11:21:17 02/15/20 CT temporal bones - Xoran completed ROBERT CLEMENTE MD [address] [address], [place], [address], [facility] [place] 02/14/2025 13:13:56 Imaging Results None recorded. Procedure Notes None recorded. Medical Equipment Implant YOLI Issuing Agency Serial Number Lot Number Status Provider Name and Address Organization Details Recorded Time Cochlear implant [facility] [id number] Y ROBERT CLEMENTE MD [address] [place] [address], [place], [address] , [facility] 15:36:09 Allergies No known drug allergies Medications [...] 42 mcg (0.06 %) nasal spray instill 2 SPRAYS IN EACH nostril TWICE DAILY active Not Available Not Available No t Available megestrol 20 mg tablet TAKE 1 TABLET BY MOUTH DAILY active Not Available Not Available No [...] 30 MINUTES PRIOR TO ARRIVAL FOR PROCEDURE 07/14 completed Not Available Not Available Not Available oxycodone 5 mg tablet Take 1 tablet by mouth every 4-6 hours as needed for 3 days. 03/24 completed Not Available Not Available Not Available TobraDex 0.3 %-0.1 % eye drops,suspe nsion 4 drops twice daily for 2 weeks 07/18 completed Not Available Not Available Not Available ezetimibe 10 mg tablet Take 1 tablet every day by oral route. active Not Available Not Available No t Available Vitamin D3 25 mcg (1,000 unit) tablet Take by oral route. active Not Available Not Available No t Available ciprofloxac in 0.3 %-dexametha sone 0.1 % ear drops,suspe nsion instill 4 DROPS into affected EAR TWICE daily FOR 2 WEEKS 07/18 completed Not Available Not Available Not Available duloxetine 60 mg capsule,del ayed release Take 1 capsule every day by oral route. active Not Available Not Available No t Available oxycodone 10 mg tablet TAKE 1 TABLET BY MOUTH ONCE NEEDED FOR PAIN 30 MINUTES PRIOR TO ARRIVAL FOR PROCEDURE 07/18 completed Not Available Not Available Not Available Vitals Date Recorded Body height Body mass index (BMI) Body weight Provider Name and Address Organization Details Last Updated DateTime 02/14/2025 167.64 cm 28.7 kg/m2 30830.44 g Marleni Zamudio [place] - [facility] 02/14/2025 13:18:38 Date Recorded Body height Body mass index (BMI) Body weight Provider Name and Address Organization Details Last Updated DateTime 03/24/2025 167.64 cm 27.9 kg/m2 71483.48 g Amanda Verma [place] - [facility] 03/24/2025 15:47:10 Date Recorded Body height Body weight Provider Name and Address Organization Details Last Updated DateTime 07/18/2025 167.64 cm 26923.7 g Marleni Zamudio [place] - [facility] 07/18/2025 14:12:50 Social History Question Answer Notes LastModified by Organizat ion Details LastModified Time Tobacco Smoking Status Never Smoker Marleni sullivan [place] - [facility] 02/14/2025 13:28:54 Do You Have Any Pets? Yes [email or web address] Information not available 07/18/2025 Are You Passively Exposed To Smoke? No [email or web address] Information not available 07/18/2025 Are There Any Smokers In Your House? No [email or web address] Information not available 07/18/2025 Sex: Unknown Functional Status Question Answer Note LastModified by Organization Details LastModified Time Do you use any illicit or recreational drugs? No [email or web address] Information not available 07/18/2025 Do you or have you ever used any other forms of tobacco or nicotine? No [email or web address] Information not available 07/18/2025 What is your level of alcohol consumption? None [email or web address] Information not available 07/18/2025 What type of noise exposure are you exposed to? noExposureToExcessiveNoise [email or web address] Infor mation not available 07/18/2025 Mental Status None recorded. Family History Nothing Reported. Medical History Condition Response Allergies/Hayfever N Heart Problems N Anxiety Y Tonsil Infections N Emphysema N Migraines N Thyroid Problems N Depression N COPD N Developmental Delay N Glaucoma N Nasal or Sinus Problems N Anemia N Immune System Disorder N Anesthesia Complications N Heart Attack ([place]) N Other Skin Condition N Diabetes N Rhinitis N Bleeding Disorder N Food Allergy N Hearing Loss Y Arthritis Y Hyperlipidemia N Cancer Y Stroke Y Dementia N Nasal polyps N Asthma N Sleep Disorder Y High Cholesterol Y GERD/Reflux Y Liver Disease N Headaches N Fibromyalgia N Hypertension Y Speech Delay N Kidney Disease N Past Encounters Encounter ID Performer Location Encounter Start Date Encounter Closed Date Diagnosis/Indication Diagnosis SNOMED-CT Code Diagnosis ICD10 Code Diagnosis IMO Codes Diagnosis Note [id number] ROBERT CLEMENTE MD [facility] [address] [address] 02/14/2025 12:52:53 02/14/2025 13:39:04 Sensorineural hearing loss of bilateral ears 605744064 H90.3 [id number] MEGHAN MENG PA-C [facility] [address] [address] 03/24/2025 15:26:56 03/24/2025 15:53:46 Sensorineural hearing loss of bilateral ears 350840988 H90.3 11762467 Otorrhea of right ear 10 00332383 426147 H92.11 [id number] ROBERT CLEMENTE MD [facility] [address] [address] 07/18/2025 13:54:45 07/18/2025 14:26:20 Sensorineural hearing loss of bilateral ears 464117559 H90.3 [id number] Cochlear p rosthesis in situ 625321148 Z96.21 [id number] Health Concerns Section Related Observation LastModified by Organization Detai ls LastModified Time None Recorded Concern Status LastModified by Organization Details LastModified Time None Recorded Advance Directives Directive None Recorded Payers Insurance Date Sequence Insurance Name Policy Number Policy Zapata Covered Member ID Zapata Member ID Guarantor Name 03/04/2025 2 UNSPECIFIED REMIT PAYOR Reynaldo Momin 07/18/2025 2 [facility] (MEDICARE REPLACEMENT HMO) Reynaldo Momin [id number] Reynaldo Momin 07/18/2025 1 MEDICARE B-[place]: [facility] [employer] Reynaldo Momin [id number] Reynaldo Garciael 07/18/2025 2 [facility] PLAN (MEDICARE SUPPLEMENT) Reynaldo Momin [id number] Reynaldo Momin Notes Date Note Type Note [...] formal audiologic cochlear implant evaluation at the [facility] cochlear implant program and was found to meet the audiologic candidacy criteria for cochlear implantation in both ears. He expressed interest in implantation of the right ear. Patient comes in today accompanied by his . Patient reports that he just recently got his Prevnar 20 vaccine ROBERT CLEMENTE MD [address] [place] [address], [address], [facility] 02/14/2025 13:38:50 03/24/2025 text/html ROS as noted in the HPI 84-year-old male presents following right cochlear implant. He has not yet had his first appointment for programming. He is a bit dizzy and off balance. REYNALDO MATUTE MD [address] [place] [address],[address], [address], [facility] 03/25/2025 08:29:27 07/18/2025 text/html Patient is now 4 months status post placement of right cochlear implant. Uneventful postoperative course. No balance disturbance. Patient working with [facility] Cochlear Implant Program for cochlear implant mapping services. He continues to use amplification on the left ear. Overall he is doing much better from an auditory standpoint and is pleased with the technology. No pain over the implant site. He comes in today accompanied by his ROBERT CLEMENTE MD [address] [place] [address], [place], [address], [facility] - [facility] 07/18/2025 14:26:40
--- OUTSIDE RECORDS SUMMARY | 2025-07-27 06:40 | XMS_ITS | Continuity of Care Document ---
Author Organization [place] - [facility], [facility] Address [address] [place] [address] Care Team Providers Care Director Health Name Role Phone CIRO KING Primary Care Provider [facility] Insulation Manager Assessment Encounter Date Assessment Date Assessment LastModified by Organization Details LastModified Time 07/18/2025 07/18/2025 Patient has healed well following placement of right cochlear implant. Patient will continue to follow-up with their implant heavy machinery assembler for implant mapping and external technology maintenance. [...] hearing experience. Patient may follow-up as needed [email or web address] Not available 07/18/2025 14:25:58 Plan of Treatment Reminders Order Date Submit Date Provider Last Modified By Organization Details Last Modified Time Details Appointments None record ed. Lab None record ed. Referral None record ed. Procedures None record ed. Surgeries None record ed. Imaging None record ed. Medication Orders None record ed. Patient TargetsNo targets recorded. Patient InstructionsNo instructions recorded. Reason for Referral None Reported. Problems Name Problem SNOMED Code Status Onset Date Resolution Date Notes Provider Name and Address Organization Details Recorded Time Sensorineur al hearing loss of bilateral ears 126698012 Active 2024 ROBERT CLEMENTE MD [address] [place], [phone], [facility] - [facility] 21:40:47 Otorrhea of right ear [id number] 106 Active 2024 MEGHAN MENG PA-C 100 [facility] [address], [place], [phone], [facility] - [facility] 16:08:22 Problem Notes None recorded. Procedures Surgical History Date Name Laterality Status Provider Name and Address Organization Details Recorded Time 03/17/20 COCHLEAR DEVICE IMPLANTATION (SURG) completed Junior Marmolejo [place] - [facility] [place] 03/20/2025 11:20:36 03/17/20 COCHLEAR DEVICE IMPLANTATION (SURG) completed Junior Marmolejo [place] - [facility] [place] 03/20/2025 11:21:17 02/15/20 CT temporal bones - Xoran completed ROBERT CLEMENTE MD [address] [place] [address], [phone], [facility] - [facility] 02/14/2025 13:13:56 Imaging Results None recorded. Procedure Notes None recorded. Medical Equipment Implant [employer] Serial Number Lot Number Status Provider Name and Address Organization Details Recorded Time Cochlear implant FDA [id number] Y ROBERT CLEMENTE MD [address] [place] [address], [place], [address] , [facility] - [facility] 15:36:09 Allergies No known drug allergies [...] Available Vitals Date Recorded Body height Body weight Provider Name and Address Organization Details Last Updated DateTime 07/18/2025 167.64 cm 67293.7 g Marleni Zamudio [place] - [facility] 07/18/2025 14:12:50 Social History Question Answer Notes LastModified by [employer] ion Details LastModified Time Tobacco Smoking Status Never Smoker Marleni sullivan [place] - [facility] 02/14/2025 13:28:54 Do You Have Any Pets? Yes [email or web address] Information not available 07/18/2025 Are You Passively Exposed To Smoke? No [email or web address] Information not available 07/18/2025 Are There Any Smokers In Your House? No [email or web address] Information not available 07/18/2025 Sex: Unknown Functional Status Question Answer Note LastModified by Organization Details LastModified Time Do you use any illicit or recreational drugs? No [email or web address] Information not available 07/18/2025 Do you or have you ever used any other forms of tobacco or nicotine? No [email or web address] Information not available 07/18/2025 What is your level of alcohol consumption? None [email or web address] Information not available 07/18/2025 What type of noise exposure are you exposed to? noExposureToExcessiveNoise [email or web address] Infor mation not available 07/18/2025 Mental Status None recorded. Family History Nothing Reported. Medical History Condition Response Allergies/Hayfever N Heart Problems N Anxiety Y Tonsil Infections N Emphysema N Migraines N Thyroid Problems N Depression N COPD N Developmental Delay N Glaucoma N Nasal or Sinus Problems N Anemia N Immune System Disorder N Anesthesia Complications N Heart Attack (ND) N Other Skin Condition N Diabetes N [...] ICD10 Code Diagnosis IMO Codes Diagnosis Note [id number] ROBERT CLEMENTE MD [facility] [address] [address] 07/18/2025 13:54:45 07/18/2025 14:26:20 Sensorineural hearing loss of bilateral ears [id number] H90.3 [id number] Cochlear p rosthesis in situ [id number] Z96.21 [id number] Health Concerns Section Related Observation LastModified by Organization Detai ls LastModified Time None Recorded Concern Status LastModified by Organization Details LastModified Time None Recorded Payers Encounter Date Sequence Insurance Name Policy Number Policy Zapata Covered Member ID Zapata Member ID Guarantor Name 07/18/2025 1 MEDICARE B-[place]: [employer] Reynaldo Momin [id number] Reynaldo Momin 07/18/2025 2 [employer] - [facility] (MEDICARE SUPPLEMENT) Reynaldo Momin [id number] Reynaldo Momin Notes Date Note Type Note Provider Name and Address Organization Details Recorded Time 07/18/2025 text/html Patient is now 4 months status post placement of right cochlear implant. Uneventful postoperative course. No balance disturbance. Patient working with [facility] for cochlear implant mapping services. He continues to use amplification on the left ear. Overall he is doing much better from an auditory standpoint and is pleased with the technology. No pain over the implant site. He comes in today accompanied by his ROBERT CLEMENTE MD [address] [place] [address], [phone], [facility] - [facility] 07/18/2025 14:26:40
--- OUTSIDE RECORDS SUMMARY | 2025-07-27 06:40 | XMS_ITS | Clinical Summary ---
Author Organization [employer] Prior to 06/24/2024 Address [address] [place] [address] Care Team Providers Care Floor Mechanic Name Role Phone Primitivo Lee Primary Care Provider Gagandeep cadet Allergies No known active allergies Medications Medication Sig Dispensed Refills Start Date End Date Status acetaminophen (TYLENOL 8 HOUR ARTHRITIS PAIN) 650 MG CR tablet Take 650 mg by mouth. 0 Active Ascorbic Acid (VITAMIN C) 100 MG tablet Take 3 mg by mouth daily. 0 Active Atorvastatin Calcium Powder Take 1 Tab by mouth daily. 0 Active Cholecalciferol 1000 UNITS Tab Take 1 Tab by mouth daily. 0 Active Clopidogrel Bisulfate Powder Take 1 Tab by mouth daily. 0 Active DONEPEZIL HCL OR Take 1 tablet by mouth daily. 0 Active ESCITALOPRAM OXALATE OR Take 1 tablet by mouth daily. 0 Active Gabapentin Powder Take 300 mg by mouth daily. 0 Active Lisinopril Powder Take 40 mg by mouth daily. 0 Active memantine (NAMENDA) 10 MG tablet Take 10 mg by mouth 2 times daily. 0 Active omeprazole (PRILOSEC) 20 MG capsule Take 20 mg by mouth daily. 0 Active tramadol (ULTRAM) 50 MG tablet Take 50 mg by mouth 2 times daily. 0 Active Multiple Vitamins-Minerals (ZINC OR) Take 1 tablet by mouth daily. 0 Active Melatonin 3 MG Tab Take 3 mg by mouth every evening. 0 Active escitalopram (LEXAPRO) 10 MG tablet Take 10 mg by mouth daily. 0 Active bicalutamide (CASODEX) 50 MG tablet Take 50 mg by mouth daily. 0 Active Fesoterodine Fumarate 8 MG TABLET SR 24 HR Take 8 mg by mouth daily. 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 Vitamin D deficiency 05/20/2018 Diverticulosis 05/20/2018 Scoliosis 05/20/2018 Social History Tobacco Use Types Packs/Day Years Used Date Smoking Tobacco: Never Smokeless Tobacco: Never Alcohol Use Standard Drinks/Week Comments Yes 0 (1 standard drink = 0.6 oz pur e alcohol) socially Sex Assigned at Date Recorded Not on file Last Filed Vital Signs Vital Sign Reading Time Taken Comments Blood Pressure 113/65 01/31/2019 2:15 PM EDT Pulse 65 01/31/2019 2:15 PM EDT Temperature 36.3 C (97.4 F) 01/31/2019 2:15 PM EDT Respiratory Rate - - Oxygen Saturation 97% 08/02/2018 2:19 PM EST Inhaled Oxygen Concentration - - Weight 86.2 kg (190 lb) 01/31/2019 2:15 PM EDT Height 172.7 cm (5' 8 ) 01/31/2019 2:15 PM EDT Body Mass Index 28.89 01/31/2019 2:15 PM EDT Plan of Treatment Health Maintenance Due Date Last Done Comments Covid-19 Vaccine (#1) 1939 DEPRESSION SCREEN 1951 DTAP/TDAP/TD (1 - Tdap) 1958 CHOLESTEROL SCREENING 1959 SHINGLES VACCINE (1 of 2) 1989 FALL RISK ASSESSMENT 2004 PNEUMOCOCCAL VACCINE (1 - PCV) 2004 BMI CHECK/ADVISE 08/24/2024 01/31/2019, 08/02/2018 INFLUENZA (#1) 2025 05/11/2018, 05/24, 06/24/2016, Additional history exists Care Teams Floor Mechanic Relationship Specialty Start Date End Date Primitivo Lee PCP - General Internal Medicine 05/17/18
== END 2025-07-27 06:39 | disposition home or self-care (01) ==
LOC: CF 06:38
PROVIDERS: Visit Provider Internal Medicine
DX: M54.16 Radiculopathy, lumbar region (principal)
CPT/HCPCS: 64483; J1100; J2003; Q9967

== ENCOUNTER 2025-07-27 13:10 | Outpatient (AMB) | payer MEDICARE, OTHER, SELFPAY ==
[2025-07-27 13:15] VITALS: BP 112/55; PULSE 72; RESP 16; O2SAT 97
--- NOTE | 2025-07-27 13:15 | MHC.OFFVIS ---
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 Denies any recent cough, cold, infection, fever or other significant changes in medical history since last office visit. [facility] Medical History (Updated 06/13/25 @ 15:13 by Marie Roca CNP) Prostate cancer ISATU on CPAP GERD (gastroesophageal reflux disease) Spinal stenosis Hx-TIA (transient ischemic attack) Depression Anxiety Hyperlipidemia Hypertension Hearing loss Physical Exam Vital Signs: Last Vital Signs Pulse 70 07/27/25 13:55 Resp 16 07/27/25 13:55 BP 163/63 H 07/27/25 13:55 Pulse Ox 96 07/27/25 13:55 Oxygen Delivery Method Room Air 07/27/25 13:55 Office Procedures Details: Transforaminal epidural steroid injection, Right L4 After obtaining written consent, pre-procedure blood pressure and heart rate were stable and recorded in the nursing record. The patient was placed in the prone position on the fluoroscopy table. The lumbosacral area was prepped with chloraprep, allowed to dry and draped in sterile fashion. Using fluoroscopy, the skin overlying our target was anesthetized with 0.5% lidocaine. A 22 gauge 3.5 inch spinal needle was advanced to the safe triangle in the upper pole of the right L4 foramen. No paresthesias were elicited with needle placement and aspiration was negative for blood and CSF. Correct needle position was confirmed with approximately 1 ml contrast dye (Omnipaque 180 mg/ml) injected under real-time fluoroscopy. No evidence of vascular or intrathecal uptake was seen and there was both epidural and peripheral spread of the contrast agent. 10 mg dexamethasone plus 1 ml containing 0.5% lidocaine was slowly injected. The needle was flushed and removed. the same procedure was repeated for the remaining levels. The skin was cleansed and a sterile bandages were applied. The patient tolerated the procedure well and no complications were encountered. Following the procedure the patient's vital signs were stable. The patient was discharged home in good condition with post-procedural instructions. Time Out: Immediately prior to the procedure, the following was verbally confirmed that there is a signed consent form and that the correct patient, planned procedure, site and side are consistent with documentation and that necessary equipment and/or blood products are available prior to the start of the case. Complications: none EBL: <5 cc 92810 - Lumbar/Sacral Procedure code (CPT) selection complete Assessment & Plan Assessment & Plan (1) Lumbar radiculopathy: Code(s): M54.16 - Radiculopathy, lumbar region Category: Medical Plan Patient is status post right L4 TFESI. Patient tolerated procedure well and was discharged home in stable condition with discharge instructions. All questions were answered. We will follow-up via telephone or in clinic to assess response to therapy. A follow-up appointment was made during today's visit. Orders: Orders FL guidance in treatment room 07/27/25 M54.16 - Radiculopathy, lumbar region Coding Level of Care Code Procedure Only Diagnoses Lumbar radiculopathy M54.16 CPT Codes Transforaminal Epidural Steroid Inj - TESI 3: 91311 - Lumbar/Sacral ([id number])
[2025-07-27 13:55] VITALS: BP 163/63; PULSE 70; RESP 16; O2SAT 96
== END 2025-07-27 13:56 | disposition home or self-care (01) ==
LOC: HO.PMCPRC 13:10
PROVIDERS: PCP Internal Medicine; Visit Provider Internal Medicine
DX: M54.16 Radiculopathy, lumbar region (principal)
CPT/HCPCS: 64483

== ENCOUNTER 2025-08-23 10:44 | Outpatient (AMB) | payer MEDICARE, OTHER, SELFPAY ==
--- OUTSIDE RECORDS SUMMARY | 2025-08-18 23:59 | XMS_ITS | Continuity of Care Document ---
Author Organization [facility] Address [address] [place] [address]- Care Team Providers Care Medical Laboratory Technical Officer Name Role Phone Sacha CERNA, Nestor Dickinson Primary Care Physician [phone] Encounter [facility] Date(s): 07/19/25 - 08/18/[address] [id number] Attending Physician: Daniel Torres Admitting Physician: Daniel Torres Referring Physician: AdmtrDaniel Encounter Type: Triage Allergies, Adverse Reactions, Alerts No Known Medication Allergies Immunizations Given and Recorded Vaccine Date Status Refusal Reason tetanus/diphtheria/pertussis, acel(Tdap) 01/28/25 Given tetanus/diphtheria/pertussis, acel(Tdap) 06/02/23 Recorded tetanus/diphtheria/pertussis, acel(Tdap) 05/05/22 Given tetanus/diphtheria/pertussis, acel(Tdap) 03/15/20 Given tetanus/diphtheria/pertussis, acel(Tdap) 07/04/11 Recorded influenza virus vaccine, inactivated 05/13/24 Elio rded influenza virus vaccine, inactivated 05/22/23 Elio rded influenza virus vaccine, inactivated 05/21/22 Elio rded influenza virus vaccine, inactivated 05/23/21 Elio rded influenza virus vaccine, inactivated 05/11/18 Elio rded influenza virus vaccine, inactivated 06/11/17 Eilo rded influenza virus vaccine, inactivated 06/24/16 Elio rded influenza virus vaccine, inactivated 05/20/15 Elio rded influenza virus vaccine, inactivated 06/25/12 Elio rded influenza virus vaccine, inactivated 06/06/11 Elio rded RSV vaccine preF3, recombinant 05/03/24 Recorded SARS-CoV-2(COVID-19)mRNA-LNP vac([id number]) 05/03/24 Recorded SARS-CoV-2(COVID-19)mRNA-LNP vac([id number]) 06/02/23 Recorded Botulinum Toxin Type A Vacc (oldterm) 1 05/22/23 R ecorded RSV vaccine, preF A-preF B, recombinant 05/22/23 R ecorded [id number] bivalent booster vax 05/21/22 Recorded SARS-CoV-2 mRNA ([id number]) vax 12/06/21 Recorded SARS-CoV-2 (COVID-19) mRNA BNT-162b2 vac 05/23/21 Recorded SARS-CoV-2 (COVID-19) mRNA BNT-162b2 vac 10/24/20 Given SARS-CoV-2 (COVID-19) mRNA BNT-162b2 vac 10/03/20 Given Influenza Virus Vaccine (oldterm) 05/28/20 Recorde d Influenza Virus Vaccine (oldterm) 05/27/19 Recorde d zoster vaccine, inactivated 01/11/19 Recorded zoster vaccine, inactivated 10/15/18 Recorded pneumococcal 13-valent vaccine 06/20/14 Recorded pneumococcal 23-valent vaccine 01/22/05 Recorded 1Result Comment: RSV Medications acetaminophen 500 mg oral tablet 2 tablet = 1,000 mg, By Mouth, Every 8 hours, PRN Pain , Moderate, for 30 days, # 180 tablet, 5 Refills, Acute 09/25/25 4:09:00 PM EST, 03/29/25 4:09:00 PM EDT, [facility] - [place], [place], 170, cm, 03/29/25 15:08:00 EDT, Height, 77.9, kg, 03/17/25 12:55:00 EDT, Dry Weight Start Date: 03/29/25 Stop Date: 09/25/25 Status: Ordered Medication Dispense Status: Completed Quantity: 180.0 Unit: tablet Total Allowed Fills: 6 Fills Dispensed: 0 Indications: Spinal stenosis, site unspecified; atorvastatin 80 mg oral tablet See Instructions, TAKE 1 TABLET AT BEDTIME, # 90 tablet, 3 Refills, Maintenance, 01/03/25 1:11:00 [facility], [facility], 166.5, cm, 05/13/25 12:55:00 EDT, Height, 83, kg, 01/31/23 18:22:00 EDT, Dry Weight Start Date: 01/03/25 Status: Ordered Medication Dispense Status: Completed Quantity: 90.0 Unit: tablet Total Allowed Fills: 4 Fills Dispensed: 0 calcium (as carbonate)-vitamin D 600 mg-800 intl units oral tablet 1 tablet, By Mouth, 2 times a day, # 180 tablet, 4 Refills, Maintenance, 03/29/25 4:07:00 PM EDT, Tablet, [facility], 1 tablet By Mouth 2 times a day,x90 days, 170, cm, 03/29/25 15:08:00 EDT, Height, 77.9, kg, 03/17/25 12:55:00 EDT, Dry Weight Start Date: 03/29/25 Stop Date: 06/22/26 Status: Ordered Medication Dispense Status: Completed Quantity: 180.0 Unit: tablet Total Allowed Fills: 5 Fills Dispensed: 0 Indications: Other specified disorders of bone density and structure, unspecified site; donepezil 10 mg oral tablet 10 mg, 1, tablet, By Mouth, Daily at bedtime, 90 tablet, # 90 tablet, Refills 3, Tot. Refills 3, Maintenance, 04/16/23 1:04:00 PM EDT, Route to Pharmacy Electronically, [facility], Partial fill upon patient request if the prescription is for a schedule II opioid drug., 173, cm, 04/16/23 12:54:00 EDT, Height, 83, kg, 01/31/23 18:22:00 EDT, Dry Weight Start Date: 04/16/23 Status: Ordered Medication Dispense Status: Completed Quantity: 90.0 Unit: tablet Total Allowed Fills: 4 Fills Dispensed: 0 duloxetine 60 mg oral enteric coated capsule 1 capsule, By Mouth, 2 times a day, # 180 capsule, 3 Refills, Maintenance, 01/03/25 1:11:00 PM EDT, [facility], 166.5, cm, 01/03/25 12:55:00 EDT, Height, 83, kg, 01/31/23 18:22:00 EDT, Dry Weight Start Date: 01/03/25 Status: Ordered Medication Dispense Status: Completed Quantity: 180.0 Unit: capsule Total Allowed Fills: 4 Fills Dispensed: 0 Eligard 7.5 mg subcutaneous kit See Instructions, Subcutaneous Infusion 45 mg every six months, # 1 Unknown, 0 Refills, Maintenance, 08/04/19 3:06:18 PM EST, [facility], 170, cm, 08/04/19 14:33:57 EST, Height, 83.5, kg, 05/09/19 19:50:11 EDT, Dry Weight Start Date: 08/04/19 Status: Ordered Medication Dispense Status: Completed Quantity: 1.0 Unit: Unknown Total Allowed Fills: 1 Fills Dispensed: 0 ezetimibe 10 mg oral tablet 1 tablet = 10 mg, By Mouth, Daily, # 90 tablet, 3 Refills, Maintenance, 01/03/25 1:11:00 PM EDT, [facility], 166.5, cm, 01/03/25 12:55:00 EDT, Height, 83, kg, 01/31/23 18:22:00 EDT, Dry Weight Start Date: 01/03/25 Status: Ordered Medication Dispense Status: Completed Quantity: 90.0 Unit: tablet Total Allowed Fills: 4 Fills Dispensed: 0 gabapentin 400 mg oral capsule 400 mg, 1, capsule, By Mouth, 2 times a day, # 180 capsule, Refills 3, Tot. Refills 3, Maintenance,01/03/25 1:12:00 PM EDT, Route to Pharmacy Electronically, [facility], Partial fill upon patient request if the prescription is for a schedule II opioid drug., 166.5, cm, 01/03/25 12:55:00 EDT, Height, 83, kg, 01/31/23 18:22:00 EDT, Dry Weight Start Date: 01/03/25 Status: Ordered Medication Dispense Status: Completed Quantity: 180.0 Unit: capsule Total Allowed Fills: 4 Fills Dispensed: 0 ipratropium nasal 42 mcg/inh spray 2 sprays = 84 mcg, Nares, Both, 2 times a day, # 3 each, 3 Refills, Maintenance, 01/05/25 12:47:00 PM EDT, [place], [facility] - [place], [place], Partial fill upon patient request if the prescription is for a schedule II opioid drug., 2 sprays Nares, Both 2 times a day, 166.5, cm, 01/03/25 12:55:00 EDT, Height, 83, kg, 01/31/23 18:22:00 EDT, Dry Weight Start Date: 01/05/25 Status: Ordered Medication Dispense Status: Completed Quantity: 3.0 Unit: each Total Allowed Fills: 4 Fills Dispensed: 0 lisinopril 20 mg oral tablet 20 mg, 1, tablet, By Mouth, Daily, # 90 tablet, Refills 3, Tot. Refills 3, Maintenance, 01/03/25 1:12:00 PM EDT, Route to Pharmacy Electronically, [facility], 166.5, cm, 01/03/25 12:55:00 EDT, Height, 83, kg, 01/31/23 18:22:00 EDT, Dry Weight Start Date: 01/03/25 Status: Ordered Medication Dispense Status: Completed Quantity: 90.0 Unit: tablet Total Allowed Fills: 4 Fills Dispensed: 0 omeprazole 20 mg oral enteric coated capsule 1 capsule, By Mouth, Daily, # 90 capsule, 3 Refills, Maintenance, 01/03/25 1:12:00 PM EDT, [facility], 166.5, cm, 01/03/25 12:55:00 EDT, Height, 83, kg, 01/31/23 18:22:00 EDT, Dry Weight Start Date: 01/03/25 Status: Ordered Medication Dispense Status: Completed Quantity: 90.0 Unit: capsule Total Allowed Fills: 4 Fills Dispensed: 0 Prolia 60 mg/mL subcutaneous solution 1 mL = 60 mg, Subcutaneous Injection, Every 6 months, # 1 mL, 0 Refills, Maintenance, 07/05/25 1:21:00 PM EST, Solution, Partial fill upon patient request if the prescription is for a schedule II opioid drug. Start Date: 07/05/25 Status: Ordered Medication Dispense Status: Completed Quantity: 1.0 Unit: mL Total Allowed Fills: 1 Fills Dispensed: 0 Prolia 60 mg/mL subcutaneous solution 1 mL = 60 mg, Subcutaneous Injection, Once, # 1 mL, 0 Refills, Soft Stop, 12/29/24 11:45:00 AM EDT, Solution, Partial fill upon patient request if the prescription is for a schedule II opioid drug. Start Date: 12/29/24 Status: Ordered Medication Dispense Status: Completed Quantity: 1.0 Unit: mL Total Allowed Fills: 1 Fills Dispensed: 0 traMADol 50 mg oral tablet 2 tablet, By Mouth, Every 6 hours, PRN NEEDED FOR SEVERE PAIN, # 240 tablet, 2 Refills, Maintenance, 01/10/26 2:30:00 PM EDT, [facility], 167.5, cm, 07/05/25 12:45:00 EST, Height, 79, kg, 04/21/25 11:44:00 EDT, Dry Weight Start Date: 01/10/26 Stop Date: 04/10/26 Status: Ordered Medication Dispense Status: Completed Quantity: 240.0 Unit: tablet Total Allowed Fills: 3 Fills Dispensed: 0 Indications: Pain, unspecified; traMADol 50 mg oral tablet 2 tablet, By Mouth, Every 6 hours, PRN NEEDED FOR SEVERE PAIN, for 30 days, # 120 tablet, 5 Refills, Hard Stop 01/10/26 2:30:00 PM EDT, 07/14/25 2:30:00 PM EST, [facility], 167.5, cm, 07/05/25 12:45:00 EST, Height, 79, kg, 04/21/25 11:44:00 EDT, Dry Weight Start Date: 07/14/25 Stop Date: 01/10/26 Status: Ordered Medication Dispense Status: Completed Quantity: 120.0 Unit: tablet Total Allowed Fills: 6 Fills Dispensed: 0 Indications: Pain, unspecified; Voltaren 1% topical gel 1 application, Topically, 4 times a day, PRN for pain, # 100 Gm, 0 Refills, Maintenance, 07/26/20 4:33:00 PM EST, Gel, Partial fill upon patient request if the prescription is for a schedule II opioiddrug. Start Date: 07/26/20 Status: Ordered Medication Dispense Status: Completed Quantity: 100.0 Unit: g Total Allowed Fills: 1 Fills Dispensed: 0 Problem List Condition Confirmation Course Effective Dates Status H ealth Status Informant Mild anemia Confirmed Active Aortic valve calcification Confirmed Active Arterial retinal branch occlusion Confirmed Active BPH (benign prostatic hyperplasia) Confirmed Active Dementia Confirmed Active Mild diastolic dysfunction Confirmed Active Controlled substance agreement signed Confirmed Active Effusion of left elbow Confirmed Active Abnormal EKG Confirmed Active Gastroesophageal reflux disease Confirmed Active History of fractured thoracic vertebra Confirmed Active Hearing loss Confirmed Active Hematoma of occipital region of scalp Confirmed Active History of fall Confirmed Active History of prostate cancer Confirmed Active History of TIAs Confirmed Active Hyperlipidemia Confirmed Active Hypertensive disorder Confirmed Active MCI (mild cognitive impairment) Confirmed Active Incontinence of bowel Confirmed Active Head trauma Confirmed Active 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 Confirmed Active ISATU treated with BiPAP Confirmed Active Osteopenia Confirmed Active Prediabetes Confirmed Active Seasonal allergies Confirmed Active Spinal stenosis Confirmed Active Steatosis of liver Confirmed Active Urinary incontinence Confirmed Active Vasomotor rhinitis Confirmed Active Social History Social History Type Response Smoking Status Never (less than 100 in lifetime) entered on: 03/08/25 Sexual Orientation Self described orien tation: ; Straight or heterosexual Sex Sex Representation Male (finding) Patient Care team information Care Team Personnel Name: Irma Wallace Position: [facility] Outreach Member Role: Lifetime Consulting Physician Name: Sacha CERNA, Nestor Dickinson Position: [facility] Physician - Primary Care Member Role: PCP Address: [address] [place] [address], [facility] [address] [id number] Telecom: Care Team Related Persons Name: KAVYA WANG Name: SARABJIT WANG Insurance Providers Guarantor name: YADIEL WANG Health Plan Information #: 1 Payer: MEDICARE B Payer Identifier: ARIANNA Member Number: [id number] Group Number: NA Subscriber Identifier: NA Relationship to Subscriber: self Coverage Type: NA Coverage Verification Date: NA Telecom: NA Address: Health Plan Information #: 2 Payer: I10 MEDICARE SUPPL [facility] Payer Identifier: NA Member Number: [id number] Group Number: [id number] Subscriber Identifier: NA Relationship to Subscriber: self Coverage Type: NA Coverage Verification Date: NA Telecom: Address:
--- NOTE | 2025-08-23 10:49 | A.OFFVIS_ITS ---
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 He received a right-sided foraminal injection during his last visit, which provided significant pain relief. The patient reports that a similar injection in the past provided relief for several months. He continues to take tramadol for pain. Pain Description - The patient's pain is currently rated at a 2 out of 10. - Pain is described as very minimal and manageable following a recent injection. Physical Exam Results Pain Management: - Analgesia: The patient reports his pain is minimal and manageable, rated at a 2/10 following a right-sided foraminal shot. - Current Medications: The patient is still taking tramadol. [facility] Medical History (Updated 06/13/25 @ 15:13 by Marie Roca CNP) Prostate cancer ISATU on CPAP GERD (gastroesophageal reflux disease) Spinal stenosis Hx-TIA (transient ischemic attack) Depression Anxiety Hyperlipidemia Hypertension Hearing loss Physical Exam Vital Signs: Last Vital Signs Pulse 81 08/23/25 10:50 Resp 17 08/23/25 10:50 BP 176/76 H 08/23/25 10:50 Pulse Ox 97 08/23/25 10:50 Oxygen Delivery Method Room Air 08/23/25 10:50 BMI result Body Mass Index 28.7 Assessment & Plan Assessment & Plan (1) Lumbar radiculopathy: Code(s): M54.16 - Radiculopathy, lumbar region Category: Medical Plan Plan Patient was informed and verbally consented to the use of an ambient scribe for clinic note documentation during this visit. 1. Chronic Pain - The patient reports significant relief after the recent right-sided foraminal injection, with pain rated at 2/10. - Continue current management, as the injection has been effective. - The duration of relief is uncertain, though a previous similar shot lasted for months. - The patient was instructed to follow up when the pain begins to return. Discussion Notes I reviewed the patient's response to the recent right-sided foraminal injection. He reported that the injection was helpful, with his pain now being minimal and manageable at a level of 2/10. I advised him that while a previous similar shot lasted for months, the duration of relief from this injection is unknown. I instructed him to contact the office for a follow-up visit whenever the pain starts to return. Patient Instructions - Continue with your current medications as prescribed. - Please let us know when your pain starts to come back so we can schedule another appointment. - Be careful and try not to fall. Coding Level of Care Code Est Pt Level 2 (08985) Diagnoses Lumbar radiculopathy M54.16
[2025-08-23 10:50] VITALS: BP 176/76; PULSE 81; RESP 17; O2SAT 97; BMI 28.7
--- OUTSIDE RECORDS SUMMARY | 2025-08-23 12:07 | XMS_ITS | Continuity of Care Document ---
Author Organization [place] - [facility], [facility] Address [address] [place] [address] Care Team Providers Care Supervisor Gate Services Name Role Phone CIRO KING Primary Care Provider [phone] [facility] Concessions Manager [phone] Assessment Encounter Date Assessment Date Assessment LastModified by Organization Details LastModified Time 07/18/2025 07/18/2025 Patient has healed well following placement of right cochlear implant. Patient will continue to follow-up with their implant wave soldering machine operator for implant mapping and external [...] hearing experience. Patient may follow-up as needed [email or web address] Not available 07/18/2025 14:25:58 Plan of Treatment [...] Sensorineur al hearing loss of bilateral ears [id number] Active 2024 ROBERT CLEMENTE MD [address] [place], [phone], [facility] - [facility] 21:40:47 Otorrhea of right ear [id number] 106 Active 2024 MEGHAN MENG PA-C 100 [facility] [address], [place], [phone], [facility] - [facility] 16:08:22 Problem Notes None recorded. Procedures Surgical History Date Name Laterality Status Provider Name and Address Organization Details Recorded Time 03/17/20 COCHLEAR DEVICE IMPLANTATION (SURG) completed Junior Marmolejo [place] - [facility] 03/20/2025 11:20:36 03/17/20 COCHLEAR DEVICE IMPLANTATION (SURG) completed Junior Marmolejo [place] - [facility] 03/20/2025 11:21:17 02/15/20 CT temporal bones - Xoran completed ROBERT CLEMENTE MD [address] [place] [address], [phone], [facility] - [facility] 02/14/2025 13:13:56 Imaging Results None recorded. Procedure Notes None recorded. Medical Equipment Implant [employer] Issuing [employer] Serial Number Lot Number Status Provider Name and Address Organization Details Recorded Time Cochlear implant FDA [id number] Y ROBERT CLEMENTE MD [address] [place] [address], [place], [address] , [facility] - [facility] 15:36:09 Allergies No known drug allergies Medications [...] Details Last Updated DateTime 07/18/2025 167.64 cm 59628.7 g Marleni Zamudio [place] - [facility] 07/18/2025 14:12:50 Social History Question Answer Notes LastModified by Related Content Database (RCDb)izat ion Details LastModified Time Tobacco Smoking Status Never Smoker Marleni sullivan [place] - [facility] 02/14/2025 13:28:54 Do You Have Any Pets? Yes [email or web address] Information not available 07/18/2025 Are You Passively Exposed To Smoke? No [email or web address] Information not available 07/18/2025 Are There Any Smokers In Your House? No Information not available 07/18/2025 Sex: Unknown Functional Status Question Answer Note LastModified by Organization Details LastModified Time Do you use any illicit or recreational drugs? No [email or web address] Information not available 07/18/2025 Do you or have you ever used any other forms of tobacco or nicotine? No Information not available 07/18/2025 What is your level of alcohol consumption? None [email or web address] Information not available 07/18/2025 What type of noise exposure are you exposed to? noExposureToExcessiveNoise [email or web address] Infor mation not available 07/18/2025 Mental Status None recorded. Family History Nothing Reported. Medical History Condition Response Allergies/Hayfever N Heart Problems N Anxiety Y Tonsil Infections N Emphysema N Migraines N Thyroid Problems N COPD N Depression N Developmental Delay N Glaucoma N Nasal or Sinus Problems N Anemia N Immune System Disorder N Anesthesia Complications N Heart Attack (SC) N Other Skin Condition N Diabetes N [...] ICD10 Code Diagnosis IMO Codes Diagnosis Note [id number] ROBERT CLEMENTE MD [facility] [address] [address] 07/18/2025 13:54:45 07/18/2025 14:26:20 Sensorineural hearing loss of bilateral ears [id number] H90.3 [id number] Cochlear p rosthesis in situ [id number] Z96.21 [id number] Health Concerns Section Related Observation LastModified by Organization Detai ls LastModified Time None Recorded Concern Status LastModified by Organization Details LastModified Time None Recorded Payers Encounter Date Sequence Insurance Name Policy Number Policy Zapata Covered Member ID Zapata Member ID Guarantor Name 07/18/2025 1 MEDICARE [place]: [employer] Reynaldo Momin [id number] Reynaldo Momin 07/18/2025 2 [employer] - [facility] (MEDICARE SUPPLEMENT) Reynaldo Momin [id number] Reynaldo Moimn Notes Date Note Type Note Provider Name and Address Organization Details Recorded Time 07/18/2025 text/html Patient is now 4 months status post placement of right cochlear implant. Uneventful postoperative course. No balance disturbance. Patient working with [facility] for cochlear implant mapping services. He continues to use amplification on the left ear. Overall he is doing much better from an auditory standpoint and is pleased with the technology. No pain over the implant site. He comes in today accompanied by his ROBERT CLEMENTE MD [address] [place] [address], [phone], [facility] - [facility] 07/18/2025 14:26:40
--- OUTSIDE RECORDS SUMMARY | 2025-08-23 12:07 | XMS_ITS | Clinical Summary ---
Author Organization [facility] Address [address] [place] [address] Care Team Providers Care Keyboard Teacher Name Role Phone Unavailable Primary Care Provider [...] 75+ series) 2014 COVID-19 Vaccine ( - 2024-2 6 season) 2025 Hepatitis B Vaccines Aged Out No long er eligible based on patient's age to complete this topic
--- OUTSIDE RECORDS SUMMARY | 2025-08-23 12:07 | XMS_ITS | Clinical Summary ---
Author Organization [facility] Address [address] [place] [address] Phone Care Team Providers Care Mailing Jogger Name Role Phone Primitivo Lee MD Primary Care Provider [phone] Allergies No known active allergies Medications ACETAMINOPHEN [...] Mixed hyperlipidemia 05/17/2018 Prostate cancer 05/17/2018 Immunizations Immunization Administration Dates Next Due UserEvents (ages 12 & older) PATRICIA S-CoV-2 COVID-19, [...] on file Sexual Orientation Not on file Last Filed Vital Signs [...] Description 02/14/2026 2:15 PM EDT Office Visit [facility] Hematology Oncology [address] [place] [address] Corina-Estefania Tinsley MD [address] [place] [address] Health Maintenance Due Date Last Done Comments Diabetes: Annual Foot Exam 1950 Diabetes: Annual Retina Eye Exam 1950 Hepatitis A Vaccines (1 of 2 - Risk 2-dose series) 1958 Hepatitis B Vaccines (1 of 3 - Risk 3-dose series) 1999 Cholesterol Screening (Lipid Panel) 08/01/2022 Falls Risk Assessment 08/01/2022 Medicare Annual Wellness Visit 08/01/2022 Social Influencers of Health Screening 08/01/2022 Hypertension/CHF/CAD Annual BMP Blood Test 08/21/2022 Depression Screening 08/24/2024 Diabetes: Blood Sugar Control [...] topic Insurance MEDICARE [employer] Care Teams Mailing Jogger Relationship Specialty Start Date End Date Primitivo Lee MD [address] [place] [address] PCP - General Internal Medicine 05/17/18
--- OUTSIDE RECORDS SUMMARY | 2025-08-23 12:07 | XMS_ITS | Data Portability ---
Author Organization [place] - [facility] Formerly [facility] Address [address] [address] Care Team Providers Care Size Stamper Name Role Phone CIRO KING Primary Care Provider [phone] [facility] Cofounder Assessment Encounter Date Assessment Date Assessment LastModified [...] be implanting the right ear with the NetEffect CI 632implant. After full discussion, the patient would like to proceed with surgery. I have provided patient with the contact information for my parts processor. We will begin the scheduling process and see the patient back at the time of surgery. Patient will require medical clearance from their primary care provider preoperatively. [email or web address] Not available 02/14/2025 13:16:07 03/24/2025 03/24/2025 84-year-old male presents following right cochlear implant surgery. On exam there is very mild addison-implant effusion which should resolve once processor is placed next week. There is mild canal edema without otorrhea. Recommended a course of Ciprodex out of abundance of caution. Follow-up as scheduled with Dr. Clemente. [email or web address] Not available 03/24/2025 16:08:04 07/18/2025 07/18/2025 Patient has heal ed well following placement of right cochlear implant. Patient will continue to follow-up with their implant medical librarian for implant mapping and external technology maintenance. [...] hearing experience. Patient may follow-up as needed [email or web address] Not available 07/18/2025 14:25:58 Plan of Treatment Reminders Order Date Submit Date Provider Last Modified By Organization Details Last Modified Time Details Appointments None recorded. Lab None recorded. Referral None recorded. Procedures None recorded. Surgeries cochlear device implantatio n (SURG) 2024 025 [email or web address] Not available 14:01:45 Imaging None recorded. Medication Orders ciprofloxac in 0.3 %-dexametha sone 0.1 % ear drops,suspe nsion 2024 025 [facility] - [place], [place], [address], [place], [address], 14:19:10 Patient TargetsNo targets recorded. Patient InstructionsNo instructions recorded. Reason for Referral None Reported. Results Created Date Observation Date Name Description Value Unit Range Abnormal Flag Note LastModifiedBy Organization Detail LastModifiedTime 02/07/2002/01/2025 cochl ear impla nt deter minat ion form* No observ ation record ed. Not Available 2024 13:14:35 02/07/20 25 02/01/2025 audio gram No observ ation record ed. [email or web address] Not Available 01/22 10:48:15 02/07/20 25 11/21/2024 audio gram No observ ation record ed. [email or web address] Not Available 01/22 10:49:26 02/07/20 25 04/04/2024 audio gram No observ ation record ed. [email or web address] Not Available 01/22 10:50:20 02/15/20 25 02/01/2025 [...] contr ast No observ ation record ed. [email or web address] [facility] [address], [place], [address], 02/20/2025 12:27:59 03/21/2003/17/2025 fluor oscop y (PROC ) No observ ation record ed. [email or web address] [facility] [address] [place], [address], 03/22/2025 12:03:04 04/15/20 25 02/14/2025 CT, tempo ral bone, w/o contr ast No observ ation record ed. [email or web address] [facility] [address], [place], [address], 04/17/2025 12:39:37 Result Notes None recorded. Problems Name Problem SNOMED Code Status Onset Date Resolution Date Notes Provider Name and Address Organization Details Recorded Time Sensorineur al hearing loss of bilateral ears 939009853 Active 2024 ROBERT CLEMENTE MD [address] [address], [place], [address], [facility] 21:40:47 Otorrhea of right ear 5869644328532 106 Active 2024 MEGHAN MENG PA-C [address] [address], [place], [address], [facility] - [facility] 16:08:22 Problem Notes None recorded. Procedures Surgical History Date Name Laterality Status Provider Name and Address Organization Details Recorded Time 03/17/20 COCHLEAR DEVICE IMPLANTATION (SURG) completed Junior Marmolejo [place] - [facility] 03/20/2025 11:20:36 03/17/20 COCHLEAR DEVICE IMPLANTATION (SURG) completed Junior Marmolejo [place] [facility] 03/20/2025 11:21:17 02/15/20 CT temporal bones - Xoran completed ROBERT CLEMENTE MD [address] [address], [place], [address], [facility] 02/14/2025 13:13:56 Imaging Results None recorded. Procedure Notes None recorded. Medical Equipment Implant [employer] Serial Number Lot Number Status Provider Name and Address Organization Details Recorded Time Cochlear implant [facility] [id number] Y ROBERT CLEMENTE MD [address] [place] [address], [place], [address] , [facility] 15:36:09 Allergies No known drug allergies Medications [...] Updated DateTime 02/14/2025 167.64 cm 28.7 kg/m2 07891.44 g Marleni Zamudio [place] - [facility] 02/14/2025 13:18:38 Date Recorded Body height Body mass index (BMI) Body weight Provider Name and Address Organization Details Last Updated DateTime 03/24/2025 167.64 cm 27.9 kg/m2 34938.48 g Amanda Verma [place] - [facility] 03/24/2025 15:47:10 Date Recorded Body height Body weight Provider Name and Address Organization Details Last Updated DateTime 07/18/2025 167.64 cm 02030.7 g Marleni Zamudio [place] - [facility] 07/18/2025 14:12:50 Social History Question Answer Notes LastModified by Organizat ion Details LastModified Time Tobacco Smoking Status Never Smoker Marleni sullivan [place] - [facility] 02/14/2025 13:28:54 Do You Have Any Pets? Yes [email or web address] Information not available 07/18/2025 Are You Passively Exposed To Smoke? No [email or web address] Information not available 07/18/2025 Are There Any Smokers In Your House? No [email or web address] Information not available 07/18/2025 Sex: Unknown Functional Status Question Answer Note LastModified by Organization Details LastModified Time Do you use any illicit or recreational drugs? No [email or web address] Information not available 07/18/2025 Do you or have you ever used any other forms of tobacco or nicotine? No Information not available 07/18/2025 What is your level of alcohol consumption? None [email or web address] Information not available 07/18/2025 What type of noise exposure are you exposed to? noExposureToExcessiveNoise [email or web address] Infor mation not available 07/18/2025 Mental Status None recorded. Family History Nothing Reported. Medical History Condition Response Allergies/Hayfever N Heart Problems N Anxiety Y Tonsil Infections N Emphysema N Migraines N Thyroid Problems N Glaucoma N Developmental Delay N Depression N COPD N Nasal or Sinus Problems N Anemia N Immune System Disorder N Anesthesia Complications N Heart Attack ([place]) N Other Skin Condition N Diabetes N [...] ICD10 Code Diagnosis IMO Codes Diagnosis Note [id number] ROBERT CLEMENTE MD [facility] [address] [address] 02/14/2025 12:52:53 02/14/2025 13:39:04 Sensorineural hearing loss of bilateral ears 710400040 H90.3 79662860 [id number] MEGHAN MENG PA-C [facility] [address] [address] 03/24/2025 15:26:56 03/24/2025 15:53:46 Sensorineural hearing loss of bilateral ears 915875752 H90.3 41616380 Otorrhea of right ear 10 28974189 871641 H92.11 1425457 [id number] ROBERT CLEMENTE MD [facility] [address] [address] 07/18/2025 13:54:45 07/18/2025 14:26:20 Sensorineural hearing loss of bilateral ears 202629404 H90.3 47582048 Cochlear p rosthesis in situ 291361038 Z96.21 87014625 Health Concerns Section Related Observation LastModified by Organization Detai ls LastModified Time None Recorded Concern Status LastModified by Organization Details LastModified Time None Recorded Advance Directives Directive None Recorded Payers Insurance Date Sequence Insurance Name Policy Number Policy Zapata Covered Member ID Zapata Member ID Guarantor Name 03/04/2025 2 UNSPECIFIED REMIT PAYOR Reynaldo Momin 07/18/2025 2 [facility] (MEDICARE REPLACEMENT HMO) Reynaldo Momin [id number] Reynaldo Momin 07/18/2025 1 MEDICARE B-[place]: [facility] [employer] Reynaldo Momin [id number] Reynaldo Garciael 07/18/2025 2 [facility] PLAN (MEDICARE SUPPLEMENT) Reynaldo Momin [id number] Reynaldo Momin Notes Date Note Type Note [...] formal audiologic cochlear implant evaluation at the [facility] cochlear implant program and was found to meet the audiologic candidacy criteria for cochlear implantation in both ears. He expressed interest in implantation of the right ear. Patient comes in today accompanied by his . Patient reports that he just recently got his Prevnar 20 vaccine ROBERT CLEMENTE MD [address] [place] [address], [phone], [facility] 02/14/2025 13:38:50 03/24/2025 text/html ROS as noted in the HPI 84-year-old male presents following right cochlear implant. He has not yet had his first appointment for programming. He is a bit dizzy and off balance. REYNALDO MATUTE MD [address] [place] [address],[address], [address], [facility] 03/25/2025 08:29:27 07/18/2025 text/html Patient is now 4 months status post placement of right cochlear implant. Uneventful postoperative course. No balance disturbance. Patient working with [facility]plant [facility] for cochlear implant mapping services. He continues to use amplification on the left ear. Overall he is doing much better from an auditory standpoint and is pleased with the technology. No pain over the implant site. He comes in today accompanied by his ROBERT CLEMENTE MD [address] [place] [address], [place], [address], [facility] - [facility] 07/18/2025 14:26:40
--- OUTSIDE RECORDS SUMMARY | 2025-08-23 12:07 | XMS_ITS | Clinical Summary ---
Author Organization [facility] Prior to 01/21/[address] [place] [address] Care Team Providers Care Accounting Auditor Name Role Phone Primitivo Lee MD Primary Care Provider [phone] Allergies No known active allergies Medications Medication [...] age to complete this topic Care Teams Accounting Auditor Relationship Specialty Start Date End Date Primitivo Lee MD PCP - General Internal Medicine 05/12/18
== END 2025-08-23 11:09 | disposition home or self-care (01) ==
LOC: HO.PMC 10:45
PROVIDERS: PCP Internal Medicine; Visit Provider Internal Medicine
DX: M54.16 Radiculopathy, lumbar region (principal)
CPT/HCPCS: 99213

== ENCOUNTER → 2025-08-23 10:44 | Outpatient (BNVA) | payer MEDICARE, OTHER, SELFPAY | PROVIDERS: PCP Internal Medicine; Visit Provider Internal Medicine | DX: M54.16 Radiculopathy, lumbar region (principal); G89.29 Other chronic pain | CPT/HCPCS: 99212 ==